=== PATIENT | female | born 1960 | race Hispanic/Latino ===

== ENCOUNTER 2017-08-07 08:48 | Outpatient (CLI) | payer MEDICARE, MEDICAID ==
--- NOTE | 2017-08-07 11:28 | MRI ---
CERVICAL SPINE MRI WITHOUT CONTRAST: DATE: 08/07/17. COMPARISON: None. HISTORY: Right 3rd and 4th digit numbness on right hand for 2 weeks, history of several falls. TECHNIQUE: Multiplanar, multisequence MR imaging of the cervical spine is obtained without contrast. FINDINGS: Straightening of the normal cervical lordosis noted. No prevertebral soft tissue swelling is seen. Mild degenerative change noted at the atlantoaxial interspace. The craniocervical junction and cer vicothoracic junction appear intact. C2-3: Facet and uncovertebral osteophyte formation noted on the right with mild to moderate associa sohan right neural foraminal stenosis. No central canal or left neural foraminal stenosis. C3-4: Minimal disk bulge with no central canal stenosis or neural foraminal stenosis. C4-5: Minimal disk bulge with no central canal stenosis. No significant neural foraminal stenosis on either side. C5-6: There is mild disk bulge with mild effacement of the ventral thecal sac and minimal central c anal stenosis. There is mild bilateral neural foraminal stenosis on the basis of uncovertebral oste ophyte formation. C6-7: No significant central canal or neural foraminal stenosis. C7-T1: Small central disk protrusion with no significant central canal or neural foraminal stenosis . The cervical cord demonstrates normal signal intensity. No focal area of osseous marrow signal abno rmality. IMPRESSION: Mild degenerative changes. There is neural foraminal stenosis on the right at C2-3 and bilaterally at C5-6. POS: [facility]
== END 2017-08-07 08:49 | disposition home or self-care (01) ==
LOC: MRI 08:48
PROVIDERS: ATTEND Psychiatry & Neurology Neurology
DX: G40.209 Localization-related (focal) (partial) symptomatic epilepsy and epileptic syndromes with complex partial seizures, not intractable, without status epilepticus (principal); M47.892 Other spondylosis, cervical region; M48.02 Spinal stenosis, cervical region
CPT/HCPCS: 72141

== ENCOUNTER 2017-08-14 13:01 | Emergency (ER) | payer MEDICARE, MEDICAID ==
[2017-08-14 13:52] LABS: #Lymphocytes 2.4 thou/uL (1.20-3.40); #Monocytes 0.3 thou/uL (0.11-0.59); #Neutrophils 3.9 thou/uL (1.40-6.50); %Basophils 0.5 % (0.0-1.0); %Eosinophils 0.6 % (0.0-10.0); %Lymphocytes 35.4 % (21.0-51.0); %Monocytes 5.2 % (0.0-10.0); Hematocrit 44.6 % (36.0-47.0); Mean Platelet Volume 7.4 fL (7.4-10.4); Red Blood Cell (RBC) Count 4.87 mill/uL (4.20-5.40); White Blood Cell (WBC) Count 6.6 thou/uL (4.8-10.8)
[2017-08-14 14:40] LABS: Chloride 102 mmol/L (98-107)
[2017-08-14 14:41] LABS: Calcium 10.1 mg/dL (7.8-10.44)
[2017-08-14 14:43] LABS: Anion Gap 16 mmol/L (10-20); Carbon Dioxide 24 mmol/L (22-29)
[2017-08-14 14:45] LABS: BUN (Urea Nitrogen) 8 mg/dL (9.8-20.1); Calc. Creatinine Clearance 0 mL/min (70-130); Estimated GFR-MDRD Greater than 90
== END 2017-08-14 15:10 | disposition home or self-care (01) ==
LOC: EEVIPCON 13:01 → ERS 13:01
DX: G40.909 Epilepsy, unspecified, not intractable, without status epilepticus (principal); E78.5 Hyperlipidemia, unspecified; I10 Essential (primary) hypertension; E66.9 Obesity, unspecified; E11.9 Type 2 diabetes mellitus without complications; E03.9 Hypothyroidism, unspecified; J45.909 Unspecified asthma, uncomplicated; F31.9 Bipolar disorder, unspecified; F25.9 Schizoaffective disorder, unspecified; Z79.82 Long term (current) use of aspirin; Z79.899 Other long term (current) drug therapy
CPT/HCPCS: 36415; 80048; 84146; 85025; 99284

== ENCOUNTER 2017-08-15 13:45 | Emergency (ER) | payer MEDICARE, MEDICAID | END 2017-08-15 15:48 | disposition home or self-care (01) | LOC: ERS 13:45 | DX: G47.00 Insomnia, unspecified (principal); E78.5 Hyperlipidemia, unspecified; I10 Essential (primary) hypertension; E11.9 Type 2 diabetes mellitus without complications; E03.9 Hypothyroidism, unspecified; J45.909 Unspecified asthma, uncomplicated; F31.9 Bipolar disorder, unspecified; F25.9 Schizoaffective disorder, unspecified; Z79.84 Long term (current) use of oral hypoglycemic drugs; Z79.899 Other long term (current) drug therapy | CPT/HCPCS: 36416; 99285 ==

== ENCOUNTER 2017-11-20 16:49 | Emergency (ER) | payer MEDICARE, MEDICAID ==
[2017-11-20] MEDS ORDERED: Lorazepam 2 MG/ML VIAL ONE (17:45)
[2017-11-20 17:47] LABS: #Eosinphils 0.1 thou/uL (0.0-0.7); #Lymphocytes 2.9 thou/uL (1.20-3.40); #Monocytes 0.4 thou/uL (0.11-0.59); #Neutrophils 5.7 thou/uL (1.40-6.50); %Basophils 0.5 % (0.0-1.0); %Eosinophils 0.7 % (0.0-10.0); %Lymphocytes 31.8 % (21.0-51.0); %Monocytes 4.7 % (0.0-10.0); %Neutrophils 62.4 % (42.0-75.0); Hemoglobin 13.1 g/dL (12.0-16.0); Mean Corpuscular HGB CONC 33.6 g/dL (32.0-36.0); Mean Corpuscular Hemoglobin 30.9 pg (27.0-31.0); Mean Platelet Volume 6.9 fL (7.4-10.4); Platelet Count 245 thou/uL (130-400); RBC Distribution Width 13.4 % (11.5-14.5); Red Blood Cell (RBC) Count 4.23 mill/uL (4.20-5.40); White Blood Cell (WBC) Count 9.2 thou/uL (4.8-10.8)
[2017-11-20 18:08] LABS: ALT (SGPT) 32 U/L (8-55); AST (SGOT) 27 U/L (5-34); Alkaline Phosphatase 82 U/L (40-150); Anion Gap 14 mmol/L (10-20); BUN (Urea Nitrogen) 14 mg/dL (9.8-20.1); Bilirubin, Total 0.2 mg/dL (0.2-1.2); Calc. Creatinine Clearance 0 mL/min (70-130); Calcium 9.7 mg/dL (7.8-10.44); Carbon Dioxide 24 mmol/L (22-29); Chloride 104 mmol/L (98-107); Estimated GFR-MDRD Greater than 90; Globulin 3.5 g/dL (2.4-3.5); Glucose 104 mg/dL (70-105); Potassium 3.9 mmol/L (3.5-5.1); Protein, Total 7.5 g/dL (6.0-8.3); Sodium 138 mmol/L (136-145)
--- NOTE | 2017-11-22 15:15 | EKG ---
Test Reason : Blood Pressure : / mmHG Vent. Rate : 067 BPM Atrial Rate : 067 BPM P-R Int : 140 ms QRS Dur : 080 ms QT Int : 390 ms P-R-T Axes : 024 030 -03 degrees QTc Int : 412 ms Normal sinus rhythm Nonspecific T wave abnormality Abnormal ECG Confirmed by NGOC MCCABE, VIDA ([id number]), publication editor REA GEE ([id number]) on 11/22/2017 3:14:46 PM Referred By: Confirmed By:VIDA GROSSMAN MD
== END 2017-11-20 18:15 | disposition home or self-care (01) ==
LOC: ERS 16:49
DX: G40.909 Epilepsy, unspecified, not intractable, without status epilepticus (principal); F41.9 Anxiety disorder, unspecified; E78.5 Hyperlipidemia, unspecified; I10 Essential (primary) hypertension; E66.9 Obesity, unspecified; E03.9 Hypothyroidism, unspecified; J45.909 Unspecified asthma, uncomplicated; Z79.899 Other long term (current) drug therapy; Z79.84 Long term (current) use of oral hypoglycemic drugs
CPT/HCPCS: 36415; 80053; 85025; 93005; 96374; J2060

== ENCOUNTER 2017-11-21 11:26 | Emergency (ER) | payer MEDICARE, MEDICAID ==
--- NOTE | 2017-11-21 12:52 | CT ---
CT BRAIN: 11/21/2017 PROVIDED CLINICAL HISTORY: Seizure. COMPARISON: 03/04/2016 FINDINGS: The ventricular system appears normal in size and morphology. There is no evidence for intracranial hemorrhage or mass effect. The extracranial soft tissues and osseous structures demonstrate an unrem arkable CT appearance. IMPRESSION: No evidence for intracranial hemorrhage or mass effect. POS: [facility]
[2017-11-21 12:57] LABS: #Basophils 0.1 thou/uL (0.0-0.2); #Eosinphils 0.1 thou/uL (0.0-0.7); #Lymphocytes 2.7 thou/uL (1.20-3.40); #Monocytes 0.4 thou/uL (0.11-0.59); #Neutrophils 6.4 thou/uL (1.40-6.50); %Basophils 0.5 % (0.0-1.0); %Eosinophils 0.7 % (0.0-10.0); %Monocytes 4.3 % (0.0-10.0); %Neutrophils 66.5 % (42.0-75.0); Mean Corpuscular Hemoglobin 30.6 pg (27.0-31.0); Mean Corpuscular Volume 92.5 fl (81.0-99.0); Mean Platelet Volume 6.9 fL (7.4-10.4); Platelet Count 244 thou/uL (130-400); RBC Distribution Width 13.3 % (11.5-14.5); Red Blood Cell (RBC) Count 4.25 mill/uL (4.20-5.40); White Blood Cell (WBC) Count 9.6 thou/uL (4.8-10.8)
[2017-11-21 13:16] LABS: ALT (SGPT) 33 U/L (8-55); AST (SGOT) 30 U/L (5-34); Alkaline Phosphatase 75 U/L (40-150); Anion Gap 15 mmol/L (10-20); BUN (Urea Nitrogen) 14 mg/dL (9.8-20.1); Bilirubin, Total 0.2 mg/dL (0.2-1.2); Calc. Creatinine Clearance 0 mL/min (70-130); Calcium 9.9 mg/dL (7.8-10.44); Carbon Dioxide 25 mmol/L (22-29); Chloride 103 mmol/L (98-107); Estimated GFR-MDRD Greater than 90; Globulin 3.6 g/dL (2.4-3.5); Glucose 93 mg/dL (70-105); Protein, Total 7.6 g/dL (6.0-8.3); Sodium 139 mmol/L (136-145)
[2017-11-21] MEDS ORDERED: levETIRAcetam 500 MG TAB PO ONE (14:30)
== END 2017-11-21 15:08 | disposition home or self-care (01) ==
LOC: ERS 11:26
DX: G40.909 Epilepsy, unspecified, not intractable, without status epilepticus (principal); E78.5 Hyperlipidemia, unspecified; I10 Essential (primary) hypertension; E66.9 Obesity, unspecified; E11.9 Type 2 diabetes mellitus without complications; E03.9 Hypothyroidism, unspecified; J45.909 Unspecified asthma, uncomplicated
CPT/HCPCS: 36415; 70450; 80053; 80177; 85025; 93005

== ENCOUNTER 2017-12-29 16:08 | Emergency (ER) | payer MEDICARE, MEDICAID ==
[2017-12-29 17:42] LABS: Bilirubin Negative (Negative); Blood, Urine Negative (Negative); Clarity CLEAR (Clear); Glucose, Urine (Dipstick) Negative (Negative); Leukocyte Negative (Negative); Nitrite Negative (Negative); Protein, Urine (Dipstick) Negative (Neg-Trace); Specific Gravity, Urine 1.005 (1.002-1.036); Urobilinogen 0.2 mg/dL (0.2-1.0); pH, Urine 6.5 (5.0-9.0)
[2017-12-29 17:50] LABS: Amphetamine Not Detected (NotDetected); Barbiturates Screen Not Detected (NotDetected); Benzodiazepine Screen Not Detected (NotDetected); Cocaine Metabolite Screen Not Detected (NotDetected); Medtox Control Line Valid? VALID (VALID); Medtox Reader # READER 1; Methadone Not Detected (NotDetected); Methamphetamine Not Detected (NotDetected); Opiate Screen Not Detected (NotDetected); Oxycodone Screen Not Detected (NotDetected); Phencyclidine (PCP) Not Detected (NotDetected); THC/Cannabinoid Screen Not Detected (NotDetected); Tricyclic Screen Not Detected (NotDetected)
[2017-12-29 19:13] LABS: #Eosinphils 0.1 thou/uL (0.0-0.7); #Lymphocytes 3.1 thou/uL (1.20-3.40); #Monocytes 0.6 thou/uL (0.11-0.59); #Neutrophils 5.8 thou/uL (1.40-6.50); %Basophils 0.1 % (0.0-1.0); %Eosinophils 0.9 % (0.0-10.0); %Lymphocytes 32.5 % (21.0-51.0); %Monocytes 6.3 % (0.0-10.0); %Neutrophils 60.2 % (42.0-75.0); Band 1 % (5-11); Hemoglobin 13.6 g/dL (12.0-16.0); Lymphocytes 28 % (21-51); MDiff Complete? YES; Mean Corpuscular HGB CONC 33.1 g/dL (32.0-36.0); Mean Corpuscular Hemoglobin 29.5 pg (27.0-31.0); Mean Corpuscular Volume 89.1 fl (81.0-99.0); Mean Platelet Volume 6.4 fL (7.4-10.4); Metamyelocyte 1 % (0-0); Monocytes 5 % (0-10); Neutrophil 65 % (42-75); Platelet Count 213 thou/uL (130-400); RBC Distribution Width 12.7 % (11.5-14.5); Red Blood Cell (RBC) Count 4.62 mill/uL (4.20-5.40); White Blood Cell (WBC) Count 9.6 thou/uL (4.8-10.8)
[2017-12-29 19:17] LABS: ALT (SGPT) 32 U/L (8-55); AST (SGOT) 24 U/L (5-34); Albumin 4.2 g/dL (3.5-5.0); Alkaline Phosphatase 104 U/L (40-150); Anion Gap 15 mmol/L (10-20); BUN (Urea Nitrogen) 8 mg/dL (9.8-20.1); Bilirubin, Total 0.4 mg/dL (0.2-1.2); Calc. Creatinine Clearance 0 mL/min (70-130); Calcium 10.4 mg/dL (7.8-10.44); Carbon Dioxide 26 mmol/L (22-29); Chloride 97 mmol/L (98-107); Estimated GFR-MDRD Greater than 90; Globulin 3.5 g/dL (2.4-3.5); Glucose 94 mg/dL (70-105); Protein, Total 7.7 g/dL (6.0-8.3); Sodium 134 mmol/L (136-145)
[2017-12-29] MEDS ORDERED: Divalproex Sodium DR 500 MG TAB PO SCH (20:15)
== END 2017-12-29 20:48 | disposition home or self-care (01) ==
LOC: ERS 16:08
DX: Z03.89 Encounter for observation for other suspected diseases and conditions ruled out (principal); E03.9 Hypothyroidism, unspecified; I10 Essential (primary) hypertension; E11.9 Type 2 diabetes mellitus without complications; F31.9 Bipolar disorder, unspecified; F20.9 Schizophrenia, unspecified; G40.909 Epilepsy, unspecified, not intractable, without status epilepticus; E78.00 Pure hypercholesterolemia, unspecified; Z79.84 Long term (current) use of oral hypoglycemic drugs; Z79.899 Other long term (current) drug therapy
CPT/HCPCS: 36415; 80053; 80164; 80177; 80306; 81003; 85025; 99284

== ENCOUNTER 2018-01-11 09:14 | Emergency (ER) | payer MEDICARE, MEDICAID | END 2018-01-11 16:48 | disposition left against medical advice (07) | LOC: ERS 09:14 | DX: Z53.21 Procedure and treatment not carried out due to patient leaving prior to being seen by health care provider (principal) | CPT/HCPCS: 36416 ==

== ENCOUNTER 2018-01-12 11:56 | Emergency (ER) | payer MEDICARE, MEDICAID ==
[2018-01-12] MEDS ORDERED: Ibuprofen 200 MG TAB ONE (12:35)
== END 2018-01-12 12:55 | disposition home or self-care (01) ==
LOC: ERS 11:56
DX: S80.01XA Contusion of right knee, initial encounter (principal); E78.5 Hyperlipidemia, unspecified; I10 Essential (primary) hypertension; E66.9 Obesity, unspecified; E11.9 Type 2 diabetes mellitus without complications; E03.9 Hypothyroidism, unspecified; G40.909 Epilepsy, unspecified, not intractable, without status epilepticus; J45.909 Unspecified asthma, uncomplicated; F25.9 Schizoaffective disorder, unspecified; F31.9 Bipolar disorder, unspecified; Z79.84 Long term (current) use of oral hypoglycemic drugs; Z79.899 Other long term (current) drug therapy; W01.0XXA Fall on same level from slipping, tripping and stumbling without subsequent striking against object, initial encounter; Y92.481 Parking lot as the place of occurrence of the external cause
CPT/HCPCS: 99284

== ENCOUNTER 2018-01-17 06:53 | Emergency (ER) | payer MEDICARE, MEDICAID | END 2018-01-17 08:50 | disposition home or self-care (01) | LOC: ERS 06:53 | DX: E11.65 Type 2 diabetes mellitus with hyperglycemia (principal); R26.2 Difficulty in walking, not elsewhere classified; E78.5 Hyperlipidemia, unspecified; I10 Essential (primary) hypertension; E66.9 Obesity, unspecified; E03.9 Hypothyroidism, unspecified; G40.909 Epilepsy, unspecified, not intractable, without status epilepticus; J45.909 Unspecified asthma, uncomplicated; F31.9 Bipolar disorder, unspecified; F20.9 Schizophrenia, unspecified; Z79.899 Other long term (current) drug therapy; Z79.84 Long term (current) use of oral hypoglycemic drugs | CPT/HCPCS: 36416; 99284 ==

== ENCOUNTER 2018-01-29 19:42 | Emergency (ER) | payer MEDICARE, MEDICAID ==
[2018-01-29 20:04] LABS: #Basophils 0.1 thou/uL (0.0-0.2); #Eosinphils 0.1 thou/uL (0.0-0.7); #Lymphocytes 3.5 thou/uL (1.20-3.40); #Monocytes 0.5 thou/uL (0.11-0.59); %Basophils 1.1 % (0.0-1.0); %Eosinophils 0.7 % (0.0-10.0); %Lymphocytes 30.8 % (21.0-51.0); %Monocytes 4.8 % (0.0-10.0); %Neutrophils 62.5 % (42.0-75.0); Hemoglobin 14.2 g/dL (12.0-16.0); Mean Corpuscular HGB CONC 33.6 g/dL (32.0-36.0); Mean Corpuscular Hemoglobin 29.6 pg (27.0-31.0); Mean Platelet Volume 6.2 fL (7.4-10.4); Platelet Count 242 thou/uL (130-400); RBC Distribution Width 12.5 % (11.5-14.5); Red Blood Cell (RBC) Count 4.78 mill/uL (4.20-5.40); White Blood Cell (WBC) Count 11.2 thou/uL (4.8-10.8)
[2018-01-29 20:27] LABS: Bilirubin Negative (Negative); Blood, Urine Negative (Negative); Clarity CLEAR (Clear); Glucose, Urine (Dipstick) Negative (Negative); Leukocyte Large (Negative); Nitrite Negative (Negative); Protein, Urine (Dipstick) Negative (Neg-Trace); Specific Gravity, Urine 1.003 (1.002-1.036); Urobilinogen 0.2 mg/dL (0.2-1.0)
[2018-01-29 20:28] LABS: Pregnancy Test - Urine (BHCG) Negative (Negative); Pregu Control Background? CLEAR/WHITE (CLR/WHITE); Pregu Control Bar Appear? YES (CONTROL BAR); Specific Gravity 1.003 (1.002-1.036)
[2018-01-29 20:29] LABS: Bacteria/HPF None Seen HPF (None Seen); Hyaline Casts/LPF 0-3 HYALINE CAST LPF (0-3 Hyaline); Pathc Cast-AUWi Flag 0.29 (0-2.49); Squamous Epithelial 0-3 HPF (0-3)
[2018-01-29 20:30] LABS: ALT (SGPT) 18 U/L (8-55); AST (SGOT) 18 U/L (5-34); Albumin 4.3 g/dL (3.5-5.0); Alkaline Phosphatase 97 U/L (40-150); Anion Gap 15 mmol/L (10-20); BUN (Urea Nitrogen) 11 mg/dL (9.8-20.1); Bilirubin, Total 0.3 mg/dL (0.2-1.2); CK (CPK) 34 U/L (29-168); Calc. Creatinine Clearance 0 mL/min (70-130); Calcium 10.3 mg/dL (7.8-10.44); Carbon Dioxide 25 mmol/L (22-29); Chloride 95 mmol/L (98-107); Estimated GFR-MDRD 83; Globulin 3.8 g/dL (2.4-3.5); Glucose 109 mg/dL (70-105); Potassium 4.4 mmol/L (3.5-5.1); Protein, Total 8.1 g/dL (6.0-8.3); Sodium 131 mmol/L (136-145)
[2018-01-29 20:32] LABS: Acetaminophen Less than 6.0 mcg/mL (10.0-30.0); Alcohol Less than 10 mg/dL (Less than 10); Salicylate Less than 8.0 mg/dL (15.0-30.0)
[2018-01-29 20:38] LABS: Amphetamine Not Detected (NotDetected); Barbiturates Screen Not Detected (NotDetected); Benzodiazepine Screen Detected (NotDetected); Cocaine Metabolite Screen Not Detected (NotDetected); Medtox Control Line Valid? VALID (VALID); Medtox Reader # READER 4; Methadone Not Detected (NotDetected); Methamphetamine Not Detected (NotDetected); Opiate Screen Not Detected (NotDetected); Oxycodone Screen Not Detected (NotDetected); Phencyclidine (PCP) Not Detected (NotDetected); THC/Cannabinoid Screen Not Detected (NotDetected); Tricyclic Screen Not Detected (NotDetected)
[2018-01-29 20:40] LABS: RBC/HPF 0-3 HPF (0-3)
[2018-01-30] MEDS ORDERED: Levothyroxine Sodium 125 MCG TAB PO SCH (06:00)
[2018-01-30] MEDS ORDERED: metFORMIN 500 MG TAB PO SCH ×2 (08:00→22:45)
[2018-01-30] MEDS ORDERED: Lisinopril 10 MG TAB PO SCH (09:00)
[2018-01-30] MEDS ORDERED: levETIRAcetam 500 mg/5 ml Oral Solution PO SCH ×2 (09:00→22:45)
[2018-01-30] MEDS ORDERED: OLANZapine 5 MG TAB PO SCH (09:00)
[2018-01-30] MEDS ORDERED: Lorazepam 1 MG TAB ONE (23:02)
[2018-01-30] MEDS ORDERED: clonazePAM 1 MG TAB ONE (23:02)
[2018-01-30] MEDS ORDERED: Pravastatin Sodium 40 MG TAB PO SCH (23:15)
[2018-01-31] MEDS ORDERED: Nitrofurantoin Monohyd/M-Cryst 100 MG CAP PO SCH (09:00)
[2018-01-31] MEDS ORDERED: traZODone HCl 50 MG TAB PO SCH (22:45)
[2018-02-01] MEDS ORDERED: Levothyroxine Sodium 100 MCG TAB PO SCH (06:00)
== END 2018-02-01 14:49 ==
LOC: ERS 19:42
DX: F32.9 Major depressive disorder, single episode, unspecified (principal); N39.0 Urinary tract infection, site not specified; E78.5 Hyperlipidemia, unspecified; I10 Essential (primary) hypertension; E66.9 Obesity, unspecified; E11.9 Type 2 diabetes mellitus without complications; E03.9 Hypothyroidism, unspecified; G40.909 Epilepsy, unspecified, not intractable, without status epilepticus; J45.909 Unspecified asthma, uncomplicated; F29 Unspecified psychosis not due to a substance or known physiological condition; Z79.84 Long term (current) use of oral hypoglycemic drugs; Z79.899 Other long term (current) drug therapy
CPT/HCPCS: 36415; 36416; 80053; 80306; 80307; 81003; 81015; 81025; 82550; 84443; 85025; 87086; 99285

== ENCOUNTER 2018-02-16 15:12 | Emergency (ER) | payer MEDICARE, MEDICAID ==
[2018-02-16 15:52] LABS: #Eosinphils 0.1 thou/uL (0.0-0.7); #Lymphocytes 2.7 thou/uL (1.20-3.40); #Monocytes 0.6 thou/uL (0.11-0.59); %Basophils 0.1 % (0.0-1.0); %Eosinophils 0.9 % (0.0-10.0); %Lymphocytes 28.7 % (21.0-51.0); %Neutrophils 64.3 % (42.0-75.0); Hemoglobin 13.9 g/dL (12.0-16.0); Mean Corpuscular HGB CONC 33.4 g/dL (32.0-36.0); Mean Corpuscular Hemoglobin 29.9 pg (27.0-31.0); Mean Corpuscular Volume 89.6 fl (81.0-99.0); Mean Platelet Volume 6.2 fL (7.4-10.4); Platelet Count 218 thou/uL (130-400); RBC Distribution Width 12.5 % (11.5-14.5); Red Blood Cell (RBC) Count 4.66 mill/uL (4.20-5.40); White Blood Cell (WBC) Count 9.3 thou/uL (4.8-10.8)
[2018-02-16 16:11] LABS: ALT (SGPT) 16 U/L (8-55); AST (SGOT) 17 U/L (5-34); Albumin 4.5 g/dL (3.5-5.0); Alkaline Phosphatase 96 U/L (40-150); Anion Gap 14 mmol/L (10-20); BUN (Urea Nitrogen) 10 mg/dL (9.8-20.1); Bilirubin, Total 0.3 mg/dL (0.2-1.2); Calc. Creatinine Clearance 0 mL/min (70-130); Calcium 10.2 mg/dL (7.8-10.44); Carbon Dioxide 27 mmol/L (22-29); Chloride 98 mmol/L (98-107); Estimated GFR-MDRD Greater than 90; Globulin 3.7 g/dL (2.4-3.5); Glucose 95 mg/dL (70-105); Potassium 4.3 mmol/L (3.5-5.1); Protein, Total 8.2 g/dL (6.0-8.3); Sodium 135 mmol/L (136-145)
== END 2018-02-16 17:48 | disposition home or self-care (01) ==
LOC: ERS 15:12
DX: G40.909 Epilepsy, unspecified, not intractable, without status epilepticus (principal); E78.5 Hyperlipidemia, unspecified; I10 Essential (primary) hypertension; E66.9 Obesity, unspecified; E11.9 Type 2 diabetes mellitus without complications; E03.9 Hypothyroidism, unspecified; J45.909 Unspecified asthma, uncomplicated; F31.9 Bipolar disorder, unspecified; F25.9 Schizoaffective disorder, unspecified; Z79.84 Long term (current) use of oral hypoglycemic drugs; Z79.899 Other long term (current) drug therapy
CPT/HCPCS: 36415; 80053; 84146; 85025; 99284

== ENCOUNTER 2018-02-20 16:59 | Emergency (ER) | payer MEDICARE, MEDICAID ==
[2018-02-20 17:34] LABS: Bilirubin Negative (Negative); Blood, Urine Negative (Negative); Clarity CLEAR (Clear); Glucose, Urine (Dipstick) Negative (Negative); Leukocyte Negative (Negative); Nitrite Negative (Negative); Protein, Urine (Dipstick) Negative (Neg-Trace); Specific Gravity, Urine 1.007 (1.002-1.036); Urobilinogen 0.2 mg/dL (0.2-1.0)
[2018-02-20 17:36] LABS: Pregnancy Test - Urine (BHCG) Negative (Negative); Pregu Control Background? CLEAR/WHITE (CLR/WHITE); Pregu Control Bar Appear? YES (CONTROL BAR); Specific Gravity 1.007 (1.002-1.036)
[2018-02-20 17:43] LABS: Amphetamine Not Detected (NotDetected); Barbiturates Screen Not Detected (NotDetected); Benzodiazepine Screen Not Detected (NotDetected); Cocaine Metabolite Screen Not Detected (NotDetected); Medtox Control Line Valid? VALID (VALID); Medtox Reader # READER 4; Methadone Not Detected (NotDetected); Methamphetamine Not Detected (NotDetected); Opiate Screen Not Detected (NotDetected); Oxycodone Screen Not Detected (NotDetected); Phencyclidine (PCP) Not Detected (NotDetected); THC/Cannabinoid Screen Not Detected (NotDetected); Tricyclic Screen Not Detected (NotDetected)
[2018-02-20 17:49] LABS: #Basophils 0.1 thou/uL (0.0-0.2); #Eosinphils 0.1 thou/uL (0.0-0.7); #Lymphocytes 2.8 thou/uL (1.20-3.40); #Monocytes 0.5 thou/uL (0.11-0.59); #Neutrophils 6.8 thou/uL (1.40-6.50); %Basophils 0.6 % (0.0-1.0); %Lymphocytes 27.4 % (21.0-51.0); %Monocytes 4.6 % (0.0-10.0); %Neutrophils 66.4 % (42.0-75.0); Hemoglobin 13.2 g/dL (12.0-16.0); Mean Corpuscular HGB CONC 33.3 g/dL (32.0-36.0); Mean Corpuscular Hemoglobin 30.3 pg (27.0-31.0); Mean Corpuscular Volume 90.9 fl (81.0-99.0); Mean Platelet Volume 6.5 fL (7.4-10.4); Platelet Count 235 thou/uL (130-400); RBC Distribution Width 12.6 % (11.5-14.5); Red Blood Cell (RBC) Count 4.35 mill/uL (4.20-5.40); White Blood Cell (WBC) Count 10.2 thou/uL (4.8-10.8)
[2018-02-20 18:08] LABS: Acetaminophen Less than 6.0 mcg/mL (10.0-30.0); Alcohol Less than 10 mg/dL (Less than 10); Salicylate Less than 8.0 mg/dL (15.0-30.0)
[2018-02-20 18:09] LABS: ALT (SGPT) 16 U/L (8-55); AST (SGOT) 18 U/L (5-34); Albumin 4.2 g/dL (3.5-5.0); Alkaline Phosphatase 90 U/L (40-150); Anion Gap 16 mmol/L (10-20); BUN (Urea Nitrogen) 7 mg/dL (9.8-20.1); Bilirubin, Total 0.4 mg/dL (0.2-1.2); CK (CPK) 30 U/L (29-168); Calc. Creatinine Clearance 0 mL/min (70-130); Calcium 10.1 mg/dL (7.8-10.44); Carbon Dioxide 25 mmol/L (22-29); Chloride 97 mmol/L (98-107); Estimated GFR-MDRD Greater than 90; Globulin 3.4 g/dL (2.4-3.5); Glucose 138 mg/dL (70-105); Potassium 3.9 mmol/L (3.5-5.1); Protein, Total 7.6 g/dL (6.0-8.3); Sodium 134 mmol/L (136-145)
[2018-02-21] MEDS ORDERED: Levothyroxine Sodium 125 MCG TAB PO SCH (06:00)
[2018-02-21] MEDS ORDERED: Lorazepam 1 MG TAB ONE (07:49)
[2018-02-21] MEDS ORDERED: metFORMIN 500 MG TAB PO SCH (08:00)
[2018-02-21] MEDS ORDERED: OLANZapine 5 MG TAB PO SCH (09:00)
[2018-02-21] MEDS ORDERED: levETIRAcetam 500 MG TAB PO SCH (09:00)
[2018-02-21] MEDS ORDERED: Lisinopril 10 MG TAB PO SCH (09:00)
[2018-02-21] MEDS ORDERED: Lorazepam 0.5 MG TAB PO SCH (09:00)
[2018-02-21] MEDS ORDERED: Atorvastatin Calcium 10 MG TAB PO SCH (21:00)
[2018-02-21] MEDS ORDERED: Divalproex Sodium DR 500 MG TAB PO SCH (21:00)
[2018-02-23] MEDS ORDERED: Lorazepam 1 MG TAB PO SCH (21:00)
== END 2018-02-25 12:26 | disposition home or self-care (01) ==
LOC: ERS 16:59
DX: R45.851 Suicidal ideations (principal); F32.9 Major depressive disorder, single episode, unspecified; E03.9 Hypothyroidism, unspecified; E11.9 Type 2 diabetes mellitus without complications; E66.9 Obesity, unspecified; E78.5 Hyperlipidemia, unspecified; F25.9 Schizoaffective disorder, unspecified; F41.9 Anxiety disorder, unspecified; I10 Essential (primary) hypertension; J45.909 Unspecified asthma, uncomplicated; G40.909 Epilepsy, unspecified, not intractable, without status epilepticus; Z79.84 Long term (current) use of oral hypoglycemic drugs; Z79.899 Other long term (current) drug therapy
CPT/HCPCS: 36415; 36416; 80053; 80306; 80307; 81003; 81025; 82550; 84443; 85025; 99284

== ENCOUNTER 2018-05-27 13:37 | Inpatient (IN) | payer MEDICARE, MEDICAID ==
[2018-05-27 14:15] LABS: #Lymphocytes 1.4 thou/uL (1.20-3.40); #Monocytes 0.2 thou/uL (0.11-0.59); #Neutrophils 4.9 thou/uL (1.40-6.50); %Basophils 0.4 % (0.0-1.0); %Eosinophils 0.7 % (0.0-10.0); %Lymphocytes 21.6 % (21.0-51.0); %Monocytes 3.3 % (0.0-10.0); Hemoglobin 13.8 g/dL (12.0-16.0); Mean Corpuscular HGB CONC 33.4 g/dL (32.0-36.0); Mean Corpuscular Hemoglobin 29.2 pg (27.0-31.0); Mean Corpuscular Volume 87.4 fL (78.0-98.0); Mean Platelet Volume 6.6 fL (7.4-10.4); Platelet Count 251 thou/uL (130-400); RBC Distribution Width 12.2 % (11.5-14.5); Red Blood Cell (RBC) Count 4.74 mill/uL (4.20-5.40); White Blood Cell (WBC) Count 6.6 thou/uL (4.8-10.8)
[2018-05-27 14:35] LABS: ALT (SGPT) 35 U/L (8-55); AST (SGOT) 34 U/L (5-34); Albumin 4.2 g/dL (3.5-5.0); Alkaline Phosphatase 110 U/L (40-150); Anion Gap 23 mmol/L (10-20); BUN (Urea Nitrogen) 13 mg/dL (9.8-20.1); Bilirubin, Total 0.5 mg/dL (0.2-1.2); Calc. Creatinine Clearance 0 mL/min (70-130); Calcium 10.3 mg/dL (7.8-10.44); Carbon Dioxide 17 mmol/L (22-29); Chloride 100 mmol/L (98-107); Estimated GFR-MDRD 53; Globulin 3.4 g/dL (2.4-3.5); Glucose 254 mg/dL (70-105); Potassium 4.3 mmol/L (3.5-5.1); Protein, Total 7.6 g/dL (6.0-8.3); Sodium 136 mmol/L (136-145)
[2018-05-27 18:36] LABS: Bilirubin Negative (Negative); Blood, Urine Negative (Negative); Clarity CLOUDY (Clear); Glucose, Urine (Dipstick) Negative (Negative); Leukocyte Small (Negative); Nitrite Negative (Negative); Protein, Urine (Dipstick) Negative (Neg-Trace); Specific Gravity, Urine 1.013 (1.002-1.036); Urobilinogen 0.2 mg/dL (0.2-1.0); pH, Urine 5.5 (5.0-9.0)
[2018-05-27 18:45] LABS: Bacteria/HPF None Seen HPF (None Seen); Hyaline Casts/LPF 7-10 HYALINE CAST LPF (0-3 Hyaline); Pathc Cast-AUWi Flag 1.01 (0-2.49)
[2018-05-27 18:49] LABS: Base Excess-Venous -0.3 mmol/L (0 (+/- 2.5)); Bicarbonate (HCO3v) 27.2 mmol/L (1.0-85.0); CO2 Tension (PvCO2) 55.6 mmHg (41.0-51.0); Calcium, Ionized 1.04 mmol/L (1.12-1.32); Hemoglobin - Calc 13.3 g/dL (12.0-18.0); T. Carbon Dioxide 28.9 mmol/L (1.0-85.0); pH (Venous) 7.297 (7.35-7.45); vO2 Saturation-calc 83.4 % (94-98)
[2018-05-27 19:53] LABS: Anion Gap 14 mmol/L (10-20); BUN (Urea Nitrogen) 14 mg/dL (9.8-20.1); Calc. Creatinine Clearance 0 mL/min (70-130); Calcium 9.2 mg/dL (7.8-10.44); Carbon Dioxide 26 mmol/L (22-29); Chloride 104 mmol/L (98-107); Estimated GFR-MDRD 72; Glucose 94 mg/dL (70-105); Potassium 4.8 mmol/L (3.5-5.1); Sodium 139 mmol/L (136-145)
[2018-05-27] MEDS ORDERED: Ondansetron HCl/PF 4 MG/2 ML Vial IVP PRN (21:03)
[2018-05-27] MEDS ORDERED: Ondansetron ODT 4 MG TAB SL PRN (21:03)
[2018-05-27] MEDS ORDERED: Acetaminophen 325 MG TAB PO PRN (21:03)
[2018-05-27 21:46] VITALS: BMI 33.3
[2018-05-27] MEDS: Sodium Chloride 0.9% 1,000 ML IV SCH (22:07)
[2018-05-27] MEDS ORDERED: Dextrose 50% Abboject 50 ML SYRINGE SLOW IVP PRN (23:59)
[2018-05-27] MEDS ORDERED: HumaLOG 300 UNITS/3 ML VIAL SC PRN (23:59)
[2018-05-27] MEDS ORDERED: Dextrose 5% in Water 1,000 ML IV PRN (23:59)
--- NOTE | 2018-05-28 00:10 | PDOC.FPRHP ---
- History of Present Illness Chief Complaint: weakness History of Present Illness: 57 F with PMH of DM, hypothyroidism, HTN, CAD, schizoaffective disorder, bipolar , and multiple personality disorder who presents for weakness and nausea. Pt states she was waiting for the bus today and began to feel weak and nauseated, felt dehydrated. She continued to the store and was feeling tired, SOB, and had a near-syncopal episode so she decided to come to the ED. In the ED, she had an anion gap of 23, glucose of 254, normal betahydroxybutyrate, and ketones in urine. Systolic BP was in the 90s. Was given NS 1500 ml, and BP improved to 122/72. - Allergies/Adverse Reactions Allergies Allergy/AdvReac Type Severity Reaction Status Date / Time alprazolam [From Xanax] Allergy Unknown Verified 05/27/18 21:47 fluoxetine HCl [From Prozac] Allergy Unknown Verified 05/27/18 21:47 haloperidol [From Haldol] Allergy Unknown Verified 05/27/18 21:47 haloperidol lactate Allergy Unknown Verified 05/27/18 21:47 [From Haldol] aripiprazole [From Abilify] Allergy Verified 05/27/18 21:47 fluoxetine [From Prozac] Allergy Verified 05/27/18 21:47 paliperidone [From Invega] Allergy Verified 05/27/18 21:47 zolpidem [From Ambien] Allergy Verified 05/27/18 21:47 zolpidem tartrate Allergy Verified 05/27/18 21:47 [From Ambien] - Home Medications Medication Instructions Recorded Confirmed Type Levothyroxine Sodium [Synthroid] 125 mcg PO DAILY 12/05/15 05/27/18 History Albuterol Sulfate [Proventil Hfa] 1 puff INH [id number] PRN #0 inh 12/06/15 Rx Valbenazine Tosylate [Ingrezza] 80 mg PO HS 08/25/17 05/27/18 History Lisinopril 10 mg PO DAILY 09/08/17 05/27/18 History Pravastatin Sodium [Pravachol] 40 mg PO HS 09/08/17 05/27/18 History levETIRAcetam [Keppra] 2 tab PO BID 09/08/17 05/27/18 History metFORMIN [Glucophage] 1,000 mg PO BID-WM 09/08/17 05/27/18 History LORazepam [Lorazepam] 1 tab OP BID 05/27/18 05/27/18 History QUEtiapine Fumarate [Seroquel] 300 mg PO HS 05/27/18 05/27/18 History - History PMHx: shizoaffective disorder, bipolar, DM, hypothyroidism, HTN, CAD, multiple personality disorder Stress test 2 yrs ago showed EF 56% PSHx: Chin surgery, bilat cataract surgery FHx: Mother of Gall bladder cancer at 74; maternal aunts of cancer; Father of MS at 74; brother of MS at 46 Social: .5 PY history; does not drink alcohol or use illicit drugs - Review of Systems General: reports: weight/appetite/sleep changes (gained 10 lbs recently, has been drinking a lot of [place]), fatigue. denies: fever/chills ENT: denies: nasal congestion, rhinorrhea Respiratory: reports: cough (1 month ago), shortness of breath, exercise intolerance. denies: congestion Cardiovascular: denies: chest pain, palpitation Gastrointestinal: reports: nausea, diarrhea (occasionally when she eats [employer], not currently). denies: vomiting, constipation, abdominal pain, GI bleeding Genitourinary: reports: incontinence (urge incontinence occasionally) Skin: denies: rashes Neurological: reports: numbness (spot on rt anterior thigh with numbness, not new, has had for a long time), weakness (generalized) - Vital signs BP 122/72, P 68, R 18, O2 96% on RA, Wt 85 kg - Physical Exam Constitutional: NAD, awake, alert and oriented HEENT: normocephalic and atraumatic, PERRLA, conjunctiva clear, MMM, other ( poor dentition) Neck: supple, no LAD Heart: RRR, normal S1/S2, no murmurs/rubs/gallops, pulses present Lungs: CTAB, no respiratory distress, good air movement, no rales/rhonchi, no wheezing Abdomen: soft, non-tender, bowel sounds present, no masses/distention Musculoskeletal: normal structure, normal tone Skin: no rash/lesions, good turgor, capillary refill <2 seconds Heme/Lymphatic: no unusual bruising or bleeding Psychiatric: normal mood and affect, good judgment and insight FMR H&P: Results - Labs Result Diagrams: 05/27/18 13:58 05/28/18 00:05 Lab results: WBC 6.6 thou/uL (4.8-10.8) 05/27/18 13:58 Hgb 13.8 g/dL (12.0-16.0) 05/27/18 13:58 Hct 41.4 % (36.0-47.0) 05/27/18 13:58 MCV 87.4 fL (78.0-98.0) 05/27/18 13:58 Plt Count 251 thou/uL (130-400) 05/27/18 13:58 Neutrophils % 74.0 % (42.0-75.0) 05/27/18 13:58 VBG pCO2 55.6 mmHg (41.0-51.0) H 05/27/18 18:30 VBG pO2 54.0 mmHg (35.0-45.0) H 05/27/18 18:30 Sodium 139 mmol/L (136-145) 05/27/18 19:26 Potassium 4.8 mmol/L (3.5-5.1) 05/27/18 19:26 Chloride 104 mmol/L (98-107) 05/27/18 19:26 Carbon Dioxide 26 mmol/L (22-29) 05/27/18 19:26 BUN 14 mg/dL (9.8-20.1) 05/27/18 19:26 Creatinine 0.82 mg/dL (0.6-1.1) 05/27/18 19:26 Glucose 94 mg/dL (70-105) 05/27/18 19:26 Calcium 9.2 mg/dL (7.8-10.44) 05/27/18 19:26 Total Bilirubin 0.5 mg/dL (0.2-1.2) 05/27/18 13:58 AST 34 U/L (5-34) 05/27/18 13:58 ALT 35 U/L (8-55) 05/27/18 13:58 Alkaline Phosphatase 110 U/L (40-150) 05/27/18 13:58 Serum Total Protein 7.6 g/dL (6.0-8.3) 05/27/18 13:58 Albumin 4.2 g/dL (3.5-5.0) 05/27/18 13:58 Urine Ketones Negative mg/dL (Negative) 05/27/18 18:16 Urine Blood Negative (Negative) 05/27/18 18:16 Urine Nitrite Negative (Negative) 05/27/18 18:16 Ur Leukocyte Esterase Small (Negative) H 05/27/18 18:16 Urine RBC 4-6 HPF (0-3) 05/27/18 18:16 Urine WBC 7-10 HPF (0-3) H 05/27/18 18:16 Ur Squamous Epith Cells 4-6 HPF (0-3) H 05/27/18 18:16 Urine Bacteria None Seen HPF (None Seen) 05/27/18 18:16 - EKG Interpretation EKG: T wave changes, nonspecific FMR H&P: A/P - Problem List (1) Metabolic acidosis Current Visit: Yes Status: Acute Code(s): E87.2 - ACIDOSIS (2) DM2 (diabetes mellitus, type 2) Current Visit: No Status: Chronic Qualifiers: Diabetes mellitus senior care insulin use: without senior care use Diabetes mellitus complication status: without complication Qualified Code(s): E11.9 - Type 2 diabetes mellitus without complications Comment: diet controlled (3) Dehydration Current Visit: Yes Status: Acute Code(s): E86.0 - DEHYDRATION (4) Hyperglycemia due to type 2 diabetes mellitus Current Visit: Yes Status: Acute Code(s): E11.65 - TYPE 2 DIABETES MELLITUS WITH HYPERGLYCEMIA - Plan 57 F with PMH of DM, hypothyroidism, HTN, CAD, schizoaffective disorder, bipolar , and multiple personality disorder who presents for Metabolic acidosis with anion gap, dehydration, and hyperglycemia. Metabolic acidosis with anion gap - Initially had anion gap of 23, corrected with fluids (and without insulin), pH 7.3. Betahydroxybutyrate WNL. - BMP, ABG, LA ordered Dehydration - systolic BP in 90s, improved with fluids (1500 ml NS) - NS @ 125 ml/hr T-wave nonspecific changes -Trop negx1 -CKMB neg Hyperglycemia -Initially had glucose 254, resolved with fluids (and without insulin) Hx of DM -SSI -accuchecks -Diet: consistent carbs FMR H&P: Upper Level - Pertinent history 57F presents to ER because of generalized weakness. She state she has been on her feet most of today traveling around time for errands with poor oral intake. She report weakness without vision change, chest pain, palpitation or dizziness. PMhx: HLD, HTN, Obesity, DM2, hypothyrodism, epilepsy, asthma Shx: Chin surgery Psych: Anxiety, bipolar, depression, schizoaffective disorder, personality disorder, suicidal ideation Social Denies alcohol, drug or tobacco use FHx: Noncontributary Allergies: Abilify, alprazolam, ambien, aripiprazole, fluoxetine, haldol, invega , prozac, xanax, zolpidem Med: Metformin 1000 mg BID, divalproex 500mg 2 tab PO QDlisinpril 10 mg PO QD, Keppra 750 PO BID, Pravastatin 40 mg PO QD, Lorazepam 0.5 mg, 1 tab PO BID - Pertinent findings Initial Vitals: BP 97/69, Pulse96. R: 20. temp 98.4 Gen: Well appearing HEENT: Normocephalic CV: RRR with no m/g/r Resp :CTA bilaterally Abd: Nontender, normoactive bowlel. MSK: No weakness Derm: No obvious rash - Plan Date/Time: 05/28/18 0009 I, [Solomon Guajardo], have evaluated this patient and agree with findings/plan as outlined by biomedical engineering internship resident. Pertinent changes/additions are listed here. 1. Metabolic Acidiosis: Initial bicarb 17, VBG pH of 7.29. B-hydroxybutyrate is not elevated. Plan to obtain lactic acid. No clear etiology for acidosis but has resolved in ER with only rehydration. Will monitor with repeat blood gas and morning lab. 2. Dehydration: Patient was symptomatic, feeling week and SBP under 100. Resolved with IV hydration. Will continue on maintaince fluid, DC tomorrow. 3. Hyperglycemia: Not DKA as not ketosis. Start on SSI and resume home medication. 4. Hx of Epilepsy: Chronic stable issue. Continue home medication divalproex and keppra 5. Hx of HLD: Chronic issue. Continue pravastatin. 6. Hx of HTN: Continue Lisinopril. BP not elevated at this time 7. Hx of Hypothyrodism: Continue levothyroxine. Attending Addendum - Attending Addendum Date/Time: 05/28/18 0747 I personally evaluated the patient and discussed the management with Dr. English. I agree with the History, Examination, Assessment and Plan documented above with any addition or exceptions noted below.
[2018-05-28] MEDS ORDERED: Enoxaparin Sodium 40 MG/0.4 ML SYRINGE SC SCH (00:15)
[2018-05-28 00:28] LABS: Anion Gap 13 mmol/L (10-20); BUN (Urea Nitrogen) 14 mg/dL (9.8-20.1); Calc. Creatinine Clearance 119 mL/min (70-130); Calcium 9.3 mg/dL (7.8-10.44); Carbon Dioxide 24 mmol/L (22-29); Chloride 105 mmol/L (98-107); Estimated GFR-MDRD 84; Glucose 103 mg/dL (70-105); Potassium 4.3 mmol/L (3.5-5.1); Sodium 138 mmol/L (136-145)
[2018-05-28] MEDS: Sodium Chloride 0.9% 1,000 ML IV SCH ×3 (00:43→06:06)
[2018-05-28 00:58] LABS: Lactic Acid 1.7 mmol/L (0.5-2.2)
[2018-05-28 01:27] LABS: CKMB 0.6 ng/mL (0-6.6); Troponin I Less than 0.010 ng/mL (< 0.028)
[2018-05-28 04:09] LABS: Actual Bicarbonate (HCO3a) 25.3 mEq/L (22-28); Base Excess (BEa) -0.5 mEq/L (-2.0 to +3.0); CO2 Tension 46.1 mmHg (35.0-45.0); Hemoglobin (Hb) 12.4 g/dL (12.0-16.0); O2 Tension (PaO2) 78.7 mmHg (80.0-100.0); pH, Arterial 7.36 (7.35-7.45)
[2018-05-28 04:10] LABS: Calcium, Ionized 1.2 mmol/L (1.12-1.30)
[2018-05-28 04:11] LABS: ALV-art Gradient 13.405 (0-20); Puncture Site LRA
[2018-05-28 07:43] VITALS: TEMP 98.2
--- NOTE | 2018-05-28 08:57 | PDOC.FM ---
- Subjective Subjective: No acute events overnight. Pt reports she is feeling better. Reports recently only drinking cokes and no water. She was admitted for possible dka; however, she received no insulin in the ED, ketones were negative as well as B- hydroxybutyrate. She reports resolution of her generalized weakness and is ready to go home. Counseled on importance of diet complince reagrding DM in addition to po hydration with water alone. Pt agreeable. - Objective Vital Signs & Weight: Vital Signs (12 hours) Temp Pulse Resp BP Pulse Ox 05/28/18 07:42 98.2 F 60 18 117/73 95 05/28/18 04:14 98.1 F 63 16 130/85 93 L 05/28/18 00:10 97.8 F 68 16 134/83 96 Weight Weight 85.275 kg I&O: 05/27/18 05/28/18 05/29/18 06:59 06:59 06:59 Intake Total 2100 Balance 2100 Result Diagrams: 05/27/18 13:58 05/28/18 00:05 <Vladimir Mabry - Last Filed: 05/28/18 08:58> - Objective Vital Signs & Weight: Vital Signs (12 hours) Temp Pulse Resp BP Pulse Ox 05/28/18 09:45 98.2 F 60 18 95 05/28/18 07:42 98.2 F 60 18 117/73 95 05/28/18 04:14 98.1 F 63 16 130/85 93 L 05/28/18 00:10 97.8 F 68 16 134/83 96 Weight Weight 85.275 kg I&O: 05/27/18 05/28/18 05/29/18 06:59 06:59 06:59 Intake Total 2100 Balance 2100 Result Diagrams: 05/27/18 13:58 05/28/18 00:05 <Michael Acevedo - Last Filed: 05/28/18 11:42> Phys Exam - Physical Examination Constitutional: NAD HEENT: PERRLA, sclera anicteric Neck: no nodes, no JVD Respiratory: no wheezing, no rales, no rhonchi, clear to auscultation bilateral Cardiovascular: RRR, no significant murmur, no rub Gastrointestinal: soft, non-tender, no distention, positive bowel sounds Musculoskeletal: no edema, pulses present Neurological: non-focal, moves all 4 limbs Deviation from normal: poor insight Skin: no rash, cap refill <2 seconds <Vladimir Mabry - Last Filed: 05/28/18 08:58> Dx/Plan (1) Dehydration Code(s): E86.0 - DEHYDRATION Status: Acute (2) Hyperglycemia due to type 2 diabetes mellitus Code(s): E11.65 - TYPE 2 DIABETES MELLITUS WITH HYPERGLYCEMIA Status: Acute (3) Metabolic acidosis Code(s): E87.2 - ACIDOSIS Status: Acute (4) Asthma Code(s): J45.909 - UNSPECIFIED ASTHMA, UNCOMPLICATED Status: Chronic (5) Hypothyroidism Code(s): E03.9 - HYPOTHYROIDISM, UNSPECIFIED Status: Chronic - Plan Plan: Metabolic acidosis with anion gap - VBG showed very mild acidemia which is to be expected given it was a venous blood gas. ABG was WNL regarding pH and mildly elevated pCO2 which is consistent with her h/o asthma - she has no acid base disturbance currently and her symptoms have resolved Dehydration - systolic BP in 90s, improved with fluids (1500 ml NS) -BP 130s - BS stable - ok for dc to home T-wave nonspecific changes -Trop negx1 -CKMB neg - dneies cp, sob, diaphoresis - stable for DC to home Hyperglycemia -Initially had glucose 254, resolved with fluids (and without insulin) - stable for dc to home - counseled on importance of dietary compliance Hx of DM -SSI -accuchecks -Diet: consistent carbs - BS stable, hyperglycemia resolved <Vladimir Mabry - Last Filed: 05/28/18 08:58> Attending Addendum - Attending Addendum Date/Time: 05/28/18 1140 I personally evaluated the patient and discussed the management with Dr. Mabry I agree with the History, Examination, Assessment and Plan documented above with any addition or exceptions noted below.Recommend patient hold metformin for acute illness with potential for volume depletion or renal function compromise. She is stable for dismissal from observation and can f/u outpatient with her PCP. <Michael Acevedo - Last Filed: 05/28/18 11:42>
[2018-05-28] MEDS ORDERED: Albuterol Sulfate 1.25 MG/3 ML NEB NEB SCH (09:15)
[2018-05-28 13:28] VITALS: BP 128/89
== END 2018-05-28 15:40 | disposition home or self-care (01) | DRG 638 ==
LOC: ERS 13:37 → T4-A 20:03
PROVIDERS: ADMIT Family Medicine; ATTEND Family Medicine
DX: E11.65 Type 2 diabetes mellitus with hyperglycemia (principal); E87.2 Acidosis; E03.9 Hypothyroidism, unspecified; I10 Essential (primary) hypertension; I25.10 Atherosclerotic heart disease of native coronary artery without angina pectoris; F25.9 Schizoaffective disorder, unspecified; F31.9 Bipolar disorder, unspecified; F44.81 Dissociative identity disorder; E86.0 Dehydration; Z79.84 Long term (current) use of oral hypoglycemic drugs; Z80.8 Family history of malignant neoplasm of other organs or systems; Z82.49 Family history of ischemic heart disease and other diseases of the circulatory system
CPT/HCPCS: 36415; 36416; 80053; 81003; 81015; 82010; 82330; 82553; 82803; 82805; 83605; 84484; 85025; 93005; 94760; 96360; 96361; J1650

== ENCOUNTER 2018-06-08 08:14 | Observation (INO) | payer MEDICARE, MEDICAID ==
[2018-06-08 09:19] LABS: #Basophils 0.1 thou/uL (0.0-0.2); #Monocytes 0.5 thou/uL (0.11-0.59); #Neutrophils 3.8 thou/uL (1.40-6.50); %Basophils 1.1 % (0.0-1.0); %Eosinophils 0.4 % (0.0-10.0); %Lymphocytes 32.1 % (21.0-51.0); %Monocytes 7.1 % (0.0-10.0); %Neutrophils 59.3 % (42.0-75.0); Hemoglobin 13.3 g/dL (12.0-16.0); Mean Corpuscular Hemoglobin 30.2 pg (27.0-31.0); Mean Corpuscular Volume 88.6 fL (78.0-98.0); Mean Platelet Volume 6.5 fL (7.4-10.4); Platelet Count 257 thou/uL (130-400); RBC Distribution Width 12.5 % (11.5-14.5); White Blood Cell (WBC) Count 6.3 thou/uL (4.8-10.8)
[2018-06-08 09:44] LABS: ALT (SGPT) 36 U/L (8-55); AST (SGOT) 34 U/L (5-34); Albumin 4.3 g/dL (3.5-5.0); Alkaline Phosphatase 92 U/L (40-150); Anion Gap 12 mmol/L (10-20); BUN (Urea Nitrogen) 7 mg/dL (9.8-20.1); Bilirubin, Total 0.4 mg/dL (0.2-1.2); Calc. Creatinine Clearance 0 mL/min (70-130); Calcium 9.9 mg/dL (7.8-10.44); Carbon Dioxide 28 mmol/L (22-29); Chloride 100 mmol/L (98-107); Estimated GFR-MDRD 84; Globulin 3.1 g/dL (2.4-3.5); Glucose 132 mg/dL (70-105); Potassium 4.5 mmol/L (3.5-5.1); Protein, Total 7.4 g/dL (6.0-8.3); Sodium 135 mmol/L (136-145)
[2018-06-08 13:46] LABS: Bilirubin Negative (Negative); Blood, Urine Negative (Negative); Clarity CLEAR (Clear); Glucose, Urine (Dipstick) Negative (Negative); Leukocyte Negative (Negative); Nitrite Negative (Negative); Protein, Urine (Dipstick) Negative (Neg-Trace); Specific Gravity, Urine 1.011 (1.002-1.036); Urobilinogen 0.2 mg/dL (0.2-1.0); pH, Urine 7.5 (5.0-9.0)
[2018-06-09] MEDS ORDERED: traZODone HCl 50 MG TAB PO PRN (02:30)
[2018-06-09] MEDS ORDERED: traZODone HCl 50 MG TAB ONE ×2 (02:30→20:35)
[2018-06-09 03:54] LABS: Acetaminophen Less than 6.0 mcg/mL (10.0-30.0); Alcohol Less than 10 mg/dL (Less than 10); CK (CPK) 96 U/L (29-168); Salicylate Less than 8.0 mg/dL (15.0-30.0)
[2018-06-09] MEDS ORDERED: Erythromycin Base 0.5% Oint 1 GM TUBE L EYE SCH (05:45)
[2018-06-09 07:51] LABS: Amphetamine Not Detected (NotDetected); Barbiturates Screen Not Detected (NotDetected); Benzodiazepine Screen Detected (NotDetected); Cocaine Metabolite Screen Not Detected (NotDetected); Medtox Control Line Valid? VALID (VALID); Medtox Reader # READER 4; Methadone Not Detected (NotDetected); Methamphetamine Not Detected (NotDetected); Opiate Screen Not Detected (NotDetected); Oxycodone Screen Not Detected (NotDetected); Phencyclidine (PCP) Not Detected (NotDetected); THC/Cannabinoid Screen Not Detected (NotDetected); Tricyclic Screen Not Detected (NotDetected)
--- NOTE | 2018-06-09 08:35 | CT ---
CT HEAD NONCONTRAST: HISTORY: Altered mental status. COMPARISON: 11/21/17. FINDINGS: There is no evidence of acute intracranial hemorrhage or infarct. Ventricles appear normal in size, shape, and position. There is no mass effect or shift of midline structures. Visualized paranasal s inuses remain well aerated. IMPRESSION: No acute intracranial abnormalities are demonstrated on noncontrast CT head. POS: [facility]
--- NOTE | 2018-06-09 08:37 | CT ---
CT CERVICAL SPINE: HISTORY: Altered mental status. Patient with seizure with head trauma. COMPARISON: Comparison is made to a previous CT from 03/02/16. No evidence of acute cervical spine fractures or changes seen. Degenerative changes seen at the T1-2 level. Cervical spine alignment is within normal limits. IMPRESSION: No evidence of acute cervical spine fractures. POS: [facility]
[2018-06-09] MEDS ORDERED: Acetaminophen 325 MG TAB ONE (09:10)
--- NOTE | 2018-06-09 09:26 | RAD ---
RADIOGRAPH CHEST 1 VIEW: HISTORY: 57-year-old female with dehydration. FINDINGS: There are no air space densities, pulmonary edema, pneumothorax, or cardiomegaly. The lateral costop hrenic angles are sharp. IMPRESSION: No acute cardiopulmonary findings. litzy POS: [facility]
[2018-06-09] MEDS ORDERED: Levothyroxine Sodium 100 MCG TAB PO SCH (13:30)
[2018-06-09] MEDS ORDERED: levETIRAcetam 500 MG TAB PO SCH (13:30)
[2018-06-09] MEDS ORDERED: Lisinopril 10 MG TAB PO SCH (13:30)
[2018-06-09] MEDS ORDERED: Lorazepam 1 MG TAB ONE (15:11)
[2018-06-09] MEDS ORDERED: Pravastatin Sodium 40 MG TAB PO SCH (20:15)
[2018-06-10 03:28] LABS: #Lymphocytes 2.3 thou/uL (1.20-3.40); #Monocytes 0.5 thou/uL (0.11-0.59); #Neutrophils 3.5 thou/uL (1.40-6.50); %Basophils 0.4 % (0.0-1.0); %Eosinophils 0.3 % (0.0-10.0); %Lymphocytes 36.8 % (21.0-51.0); %Monocytes 7.9 % (0.0-10.0); %Neutrophils 54.7 % (42.0-75.0); Hemoglobin 11.9 g/dL (12.0-16.0); Mean Corpuscular HGB CONC 33.8 g/dL (32.0-36.0); Mean Corpuscular Hemoglobin 30.5 pg (27.0-31.0); Mean Corpuscular Volume 90.2 fL (78.0-98.0); Mean Platelet Volume 6.2 fL (7.4-10.4); Platelet Count 237 thou/uL (130-400); RBC Distribution Width 12.6 % (11.5-14.5); White Blood Cell (WBC) Count 6.3 thou/uL (4.8-10.8)
[2018-06-10 03:49] LABS: ALT (SGPT) 30 U/L (8-55); AST (SGOT) 24 U/L (5-34); Albumin 3.6 g/dL (3.5-5.0); Alkaline Phosphatase 78 U/L (40-150); Anion Gap 12 mmol/L (10-20); BUN (Urea Nitrogen) 16 mg/dL (9.8-20.1); Bilirubin, Total 0.3 mg/dL (0.2-1.2); Calc. Creatinine Clearance 0 mL/min (70-130); Calcium 9.4 mg/dL (7.8-10.44); Carbon Dioxide 25 mmol/L (22-29); Chloride 103 mmol/L (98-107); Estimated GFR-MDRD 68; Globulin 2.8 g/dL (2.4-3.5); Glucose 151 mg/dL (70-105); Magnesium 1.6 mg/dL (1.6-2.6); Potassium 4.3 mmol/L (3.5-5.1); Protein, Total 6.4 g/dL (6.0-8.3); Sodium 136 mmol/L (136-145)
[2018-06-10 05:03] LABS: Lactic Acid 2.3 mmol/L (0.5-2.2)
[2018-06-10 05:12] LABS: Troponin I 0.113 ng/mL (< 0.028)
--- NOTE | 2018-06-10 08:17 | RAD ---
RADIOGRAPH CHEST 1 VIEW: HISTORY: A 57-year-old female with dehydration. FINDINGS: There are no air space densities, pulmonary edema, pneumothorax, or cardiomegaly. The lateral costop hrenic angles are sharp. IMPRESSION: No acute cardiopulmonary findings. litzy [] POS: [facility]
[2018-06-10 09:27] LABS: Troponin I 0.078 ng/mL (< 0.028)
[2018-06-10] MEDS: Erythromycin Base 0.5% Oint 1 GM TUBE L EYE SCH ×6 (10:14→21:36)
[2018-06-10] MEDS: metFORMIN 500 MG TAB PO SCH ×3 (10:15→17:26)
[2018-06-10] MEDS: Lorazepam 0.5 MG TAB PO SCH ×3 (10:15→21:35)
[2018-06-10] MEDS: levETIRAcetam 500 MG TAB PO SCH ×3 (10:15→21:35)
[2018-06-10] MEDS: Ziprasidone 20 MG CAP PO SCH ×3 (10:15→21:35)
[2018-06-10] MEDS: Lisinopril 10 MG TAB PO SCH (10:16)
[2018-06-10] MEDS: OXcarbazepine 150 MG TAB PO SCH ×3 (10:16→21:35)
[2018-06-10] MEDS: Pravastatin Sodium 40 MG TAB PO SCH ×2 (10:16→21:35)
[2018-06-10 12:52] LABS: Troponin I 0.064 ng/mL (< 0.028)
--- NOTE | 2018-06-10 16:25 | PDOC.FPRHP ---
- History of Present Illness Chief Complaint: Altered mental status History of Present Illness: HPI done via patient and ER record. Patient found to be unreliable historian Patient was reported to be found by police walking the street wearing only a shirt. They brought her to ED on 06/08 on concern of AMS. At that time, head CT was done finding no abnormalities. Cervical spine and CXR was neg. UA was negative. UDS was negative except for benzo. Alcohol was negative. Electrolyte and CBC were within normal limit. tankroom worker saw patient and reported she was acting below baseline. She was then placed on [facility] waiting list. There was no specific time, but at approximately 2100 on 06/09, she was noted to have recovered from a seizure of unknown duration and back to her current mental baseline. At approximately 0300 on 06/10, she was noted to have BP with systolics around 80. Then at 0559 on 06/10 she was noted to be admitted to tele because of concern for elevated troponin. There was no mention of diaphoresis, chest pain, SOB, weakness. - Allergies/Adverse Reactions Allergies Allergy/AdvReac Type Severity Reaction Status Date / Time alprazolam [From Xanax] Allergy Unknown Verified 05/27/18 21:47 fluoxetine HCl [From Prozac] Allergy Unknown Verified 05/27/18 21:47 haloperidol [From Haldol] Allergy Unknown Verified 05/27/18 21:47 haloperidol lactate Allergy Unknown Verified 05/27/18 21:47 [From Haldol] aripiprazole [From Abilify] Allergy Verified 05/27/18 21:47 fluoxetine [From Prozac] Allergy Verified 05/27/18 21:47 paliperidone [From Invega] Allergy Verified 05/27/18 21:47 zolpidem [From Ambien] Allergy Verified 05/27/18 21:47 zolpidem tartrate Allergy Verified 05/27/18 21:47 [From Ambien] - Home Medications Medication Instructions Recorded Confirmed Type Lisinopril 10 mg PO DAILY 09/08/17 06/10/18 History Pravastatin Sodium [Pravachol] 40 mg PO HS 09/08/17 06/10/18 History levETIRAcetam [Keppra] 2 tab PO BID 09/08/17 06/10/18 History metFORMIN [Glucophage] 1,000 mg PO BID-WM 09/08/17 06/10/18 History LORazepam [Lorazepam] 1 tab OP BID 05/27/18 06/10/18 History QUEtiapine Fumarate [Seroquel] 300 mg PO HS 05/27/18 06/10/18 History Levothyroxine Sodium 100 mcg PO DAILY 06/10/18 06/10/18 History OXcarbazepine [Trileptal] 150 mg PO BID 06/10/18 06/10/18 History traZODone HCl [Trazodone HCl] 150 mg PO HS 06/10/18 06/10/18 History - History PMHx:HLD, HTN, obesity, DM2, hypothyrodism, pseudoseizure, asthma PSHx: Rt cataract eye sx, FHx: No reported hx of psych disorder Social: Patient reports she lives at home and manages all her ADL. She denies every using alcohol, tobacco or drug. She endorses getting "sick" and when that happens, she does things like walk the streets naked - Review of Systems General: denies: weight/appetite/sleep changes Eyes: denies: vision changes ENT: denies: nasal congestion Respiratory: denies: cough, shortness of breath Cardiovascular: denies: chest pain, palpitation Gastrointestinal: denies: nausea, vomiting, diarrhea, abdominal pain Genitourinary: denies: dysuria Skin: denies: rashes, itching Musculoskeletal: denies: pain, tenderness Neurological: reports: seizure. denies: weakness Psychological: reports: anxiety, depression - Vital signs BP: [] HR: [] RR: [] Tmax: [] Pox: []% on [] Wt: [] - Physical Exam Constitutional: NAD HEENT: normocephalic and atraumatic, conjunctiva clear Neck: supple Chest: no lesions Heart: RRR, normal S1/S2, no murmurs/rubs/gallops, pulses present Lungs: CTAB, no respiratory distress Abdomen: soft, non-tender, bowel sounds present Musculoskeletal: normal structure Neurological: no focal deficit, CN II-XII intact, normal sensation Skin: no jaundice Heme/Lymphatic: no unusual bruising or bleeding -Psychiatric: AOx3. Answers question appropriately, but goes onto unusual tangents unrelated to questions. FMR H&P: Results - Labs Result Diagrams: 06/10/18 03:18 06/10/18 03:18 Lab results: WBC 6.3 thou/uL (4.8-10.8) 06/10/18 03:18 Hgb 11.9 g/dL (12.0-16.0) L 06/10/18 03:18 Hct 35.2 % (36.0-47.0) L 06/10/18 03:18 MCV 90.2 fL (78.0-98.0) 06/10/18 03:18 Plt Count 237 thou/uL (130-400) 06/10/18 03:18 Neutrophils % 54.7 % (42.0-75.0) 06/10/18 03:18 Sodium 136 mmol/L (136-145) 06/10/18 03:18 Potassium 4.3 mmol/L (3.5-5.1) 06/10/18 03:18 Chloride 103 mmol/L (98-107) 06/10/18 03:18 Carbon Dioxide 25 mmol/L (22-29) 06/10/18 03:18 BUN 16 mg/dL (9.8-20.1) 06/10/18 03:18 Creatinine 0.87 mg/dL (0.6-1.1) 06/10/18 03:18 Glucose 151 mg/dL (70-105) H 06/10/18 03:18 Lactic Acid 2.0 mmol/L (0.5-2.2) 06/10/18 06:53 Calcium 9.4 mg/dL (7.8-10.44) 06/10/18 03:18 Total Bilirubin 0.3 mg/dL (0.2-1.2) 06/10/18 03:18 AST 24 U/L (5-34) 06/10/18 03:18 ALT 30 U/L (8-55) 06/10/18 03:18 Alkaline Phosphatase 78 U/L (40-150) 06/10/18 03:18 Creatine Kinase 96 U/L (29-168) 06/09/18 03:23 Serum Total Protein 6.4 g/dL (6.0-8.3) 06/10/18 03:18 Albumin 3.6 g/dL (3.5-5.0) 06/10/18 03:18 Urine Ketones Negative mg/dL (Negative) 06/08/18 13:28 Urine Blood Negative (Negative) 06/08/18 13:28 Urine Nitrite Negative (Negative) 06/08/18 13:28 Ur Leukocyte Esterase Negative (Negative) 06/08/18 13:28 - Radiology Interpretation CT scan - head Status: image reviewed by me, report reviewed by me (No abnormalities were seen. ) Chest x-ray Status: image reviewed by me, report reviewed by me (No obvious infectious causes for AMS) FMR H&P: A/P - Problem List (1) Elevated troponin Current Visit: Yes Status: Acute Priority: Medium Code(s): R74.8 - ABNORMAL LEVELS OF OTHER SERUM ENZYMES Assessment and Plan: Likely related to seizure activity and is downtrending and patient asymptomatic. Plan to monitor on telemetry at this time. Unlikely to be cardiac in nature. (2) Hypotension Current Visit: Yes Status: Acute Qualifiers: Hypotension type: idiopathic hypotension Qualified Code(s): I95.0 - Idiopathic hypotension Assessment and Plan: Patient had episode of asymptomatic hypotension. Resolved at this time. Patient asymptomatic and not tachycardic. Will continue with PO hydration. (3) Schizoaffective disorder Current Visit: No Status: Acute Code(s): F25.9 - SCHIZOAFFECTIVE DISORDER, UNSPECIFIED Qualifiers: Schizoaffective disorder type: unspecified Qualified Code(s): F25.9 - Schizoaffective disorder, unspecified Comment: with hallucinations Assessment and Plan: Patient is on [facility] wait list. Patient has had multiple psychotic episode and has shown unsafe behavior in the community. (4) Diabetes mellitus type 2 in obese Current Visit: No Status: Chronic Code(s): E11.9 - TYPE 2 DIABETES MELLITUS WITHOUT COMPLICATIONS; E66.9 - OBESITY, UNSPECIFIED Assessment and Plan: Continue with home medication. Her BG has not been extreme high or low here. (5) HLD (hyperlipidemia) Current Visit: No Status: Chronic Code(s): E78.5 - HYPERLIPIDEMIA, UNSPECIFIED Qualifiers: Hyperlipidemia type: Other hyperlipidemia Qualified Code(s): E78.4 - Other hyperlipidemia (6) HTN (hypertension) Current Visit: No Status: Chronic Code(s): I10 - ESSENTIAL (PRIMARY) HYPERTENSION Assessment and Plan: Known chronic issue. At this time, will hold BP medication and gradually retitrate medication as BP allows. (7) Hypothyroidism Current Visit: No Status: Chronic Code(s): E03.9 - HYPOTHYROIDISM, UNSPECIFIED Assessment and Plan: Her TSH is noted to be mildly low. Plan to obtain free t3/t4, titrating levothyroxine once those test returns. (8) Pseudoseizures Current Visit: No Status: Resolved Code(s): F44.5 - CONVERSION DISORDER WITH SEIZURES OR CONVULSIONS Comment: Assessment and Plan: Been evaluated by Neurology last year, where they diagnosis her with pseudoseizure. At this time, patient is on seizure medication. At this time, changing medication abruptly can be difficult on patient. Will introduce to her the concept that medication may not be needed in a slow manner. - Plan Currently Obs Disposition/LOS: Dispo to [place] [facility]MR H&P: Upper Level - Plan Date/Time: 06/10/18 1620 I, [], have evaluated this patient and agree with findings/plan as outlined by promotions intern resident. Pertinent changes/additions are listed here.
[2018-06-10 18:41] LABS: Free T4 (Free Thyroxine) 1.26 ng/dL (0.70-1.48)
[2018-06-11] MEDS: Erythromycin Base 0.5% Oint 1 GM TUBE L EYE SCH ×6 (01:05→21:02)
[2018-06-11] MEDS: Acetaminophen 325 MG TAB PO PRN (04:23)
[2018-06-11] MEDS ORDERED: Levothyroxine Sodium 100 MCG TAB PO SCH (06:00)
[2018-06-11] MEDS ORDERED: Sodium Chloride 0.9% 10 ML ONE (07:33)
[2018-06-11] MEDS: metFORMIN 500 MG TAB PO SCH ×2 (08:45→18:05)
[2018-06-11] MEDS: levETIRAcetam 500 MG TAB PO SCH ×2 (08:45→20:58)
[2018-06-11] MEDS: Ziprasidone 20 MG CAP PO SCH ×2 (08:46→20:59)
[2018-06-11] MEDS: OXcarbazepine 150 MG TAB PO SCH ×2 (08:46→21:01)
[2018-06-11] MEDS: Lisinopril 10 MG TAB PO SCH (08:46)
[2018-06-11] MEDS: Lorazepam 0.5 MG TAB PO SCH ×2 (08:46→21:01)
[2018-06-11] MEDS: Enoxaparin Sodium 40 MG/0.4 ML SYRINGE SC SCH (08:47)
--- NOTE | 2018-06-11 09:53 | PDOC.FM ---
- Subjective Subjective: 57F seen in bed with sitter. History provided by patient, sitter and nurse; patient is unreliable. Per interview, no seizure activity overnight. Her BP has been appropriate. Sitter state there was no usual behavior. Patient denies chest pain, SOB, nuasea , sweats. - Objective MAR Reviewed: Yes Vital Signs & Weight: Vital Signs (12 hours) Temp Pulse Resp BP BP Pulse Ox 06/11/18 08:46 122/68 06/11/18 04:00 97.7 F 84 20 100/56 L 95 06/11/18 00:00 16 Weight Weight 84.504 kg I&O: 06/10/18 06/11/18 06/12/18 06:59 06:59 06:59 Intake Total 120 Balance 120 Result Diagrams: 06/10/18 03:18 06/10/18 03:18 <Solomno Guajardo - Last Filed: 06/11/18 11:36> - Objective Vital Signs & Weight: Vital Signs (12 hours) Temp Pulse Resp BP BP BP BP 06/11/18 16:05 98.6 F 75 16 110/63 06/11/18 14:11 103/67 06/11/18 12:20 97.6 F 67 16 89/54 L 108/55 L 06/11/18 08:46 122/68 06/11/18 08:30 98.6 F 82 16 122/68 122/68 Pulse Ox 06/11/18 16:05 96 06/11/18 14:11 06/11/18 12:20 95 06/11/18 08:46 06/11/18 08:30 98 Weight Weight 84.504 kg I&O: 06/10/18 06/11/18 06/12/18 06:59 06:59 06:59 Intake Total 120 720 Balance 120 720 Result Diagrams: 06/10/18 03:18 06/10/18 03:18 <Bessie Muse - Last Filed: 06/11/18 19:34> Phys Exam - Physical Examination Constitutional: NAD HEENT: moist MMs Neck: no nodes, supple Respiratory: no wheezing, no rales, no rhonchi, clear to auscultation bilateral Cardiovascular: RRR, no significant murmur Gastrointestinal: soft, no distention Musculoskeletal: no edema Neurological: moves all 4 limbs Lymphatic: no nodes Psychiatric: A&O x 3 Does not remember recent event. Flight of idea. Can answer appropriately Skin: no rash <LySolomon M - Last Filed: 06/11/18 11:36> Dx/Plan (1) Elevated troponin Code(s): R74.8 - ABNORMAL LEVELS OF OTHER SERUM ENZYMES Status: Resolved Plan: Down trending trops, again, may be result of patient convulsive episode witness in ED. Patient asymptomatic throughout episode. Doubt cardiac causes. (2) Hypotension Status: Resolved Qualifiers: Hypotension type: idiopathic hypotension Qualified Code(s): I95.0 - Idiopathic hypotension Plan: Resolved issue. (3) Schizoaffective disorder Code(s): F25.9 - SCHIZOAFFECTIVE DISORDER, UNSPECIFIED Status: Acute Qualifiers: Schizoaffective disorder type: unspecified Qualified Code(s): F25.9 - Schizoaffective disorder, unspecified Plan: Continue with her current medication, quetiapoine and geodone. Not showing overt sign of psychosis though she does have odd flight of thoughts. (4) Diabetes mellitus type 2 in obese Code(s): E11.9 - TYPE 2 DIABETES MELLITUS WITHOUT COMPLICATIONS; E66.9 - OBESITY , UNSPECIFIED Status: Chronic Plan: Continue with metformin, mild SSI. Glucose is appropriate. (5) HLD (hyperlipidemia) Code(s): E78.5 - HYPERLIPIDEMIA, UNSPECIFIED Status: Chronic Qualifiers: Hyperlipidemia type: Other hyperlipidemia Plan: Chronic issue. Continue with current pravastatin. (6) HTN (hypertension) Code(s): I10 - ESSENTIAL (PRIMARY) HYPERTENSION Status: Chronic Plan: Chronic issue, for which she is not hypertensive. At this time, continue with lisinopril for renal protection from diabetes. (7) Hypothyroidism Code(s): E03.9 - HYPOTHYROIDISM, UNSPECIFIED Status: Chronic Plan: Subclinical hyperthyroidism based on normal T3/T4 but depressed TSH. Will lower levothyroxine to 88 mcg. (8) Pseudoseizures Code(s): F44.5 - CONVERSION DISORDER WITH SEIZURES OR CONVULSIONS Status: Resolved Plan: Based on neurology consult prior, there is concerned for pseudoseizure/ conversion disorder and not true epilepsy. Discussed with patient but unwilling to change medication at this time. At the very least, she is not taking her keppra at home based on subtherapeutic dosage. <Solomon Guajardo - Last Filed: 06/11/18 11:36> Attending Addendum - Attending Addendum Date/Time: 06/11/181932 I personally evaluated the patient and discussed the management with Dr. Guajadro. I agree with the History, Examination, Assessment and Plan documented above with any addition or exceptions noted below. The patient was placed in obs after a psych hold in the ER for indeterminate troponins. Pt is feeling better today. NO chest pain, palpitations, shortness of breath. She is medically stable for [facility]. Per report, she is on a waiting lists for [facility]. <Bessie Muse - Last Filed: 06/11/18 19:34>
[2018-06-11] MEDS ORDERED: HumaLOG 300 UNITS/3 ML VIAL SC PRN (11:38)
[2018-06-11] MEDS ORDERED: Dextrose 5% in Water 1,000 ML IV PRN (11:38)
[2018-06-11] MEDS ORDERED: Insulin Regular 300 UNITS/3 ML VIAL SC PRN (11:38)
[2018-06-11] MEDS ORDERED: Dextrose 50% Abboject 50 ML SYRINGE SLOW IVP PRN (11:38)
--- NOTE | 2018-06-11 11:49 | PDOC.EVN ---
Event Note - Event Note Event Note: Patient is medically clear. Her troponin and hypotension problem are felt to be resolved at this time. Please referred to patient's latest note on 06/11.
[2018-06-11] MEDS: Pravastatin Sodium 40 MG TAB PO SCH (21:01)
[2018-06-12] MEDS: Erythromycin Base 0.5% Oint 1 GM TUBE L EYE SCH ×6 (01:00→20:16)
--- NOTE | 2018-06-12 05:57 | PDOC.FM ---
- Subjective Subjective: No acute events overnight. Patient has no complaints at this time. - Objective MAR Reviewed: Yes Vital Signs & Weight: Vital Signs (12 hours) Temp Pulse Resp BP BP Pulse Ox 06/12/18 04:00 96.2 F L 88 20 128/70 96 06/11/18 20:00 98.5 F 70 16 113/60 95 Weight Weight 84.992 kg I&O: 06/10/18 06/11/18 06/12/18 06:59 06:59 06:59 Intake Total 120 2180 Output Total 1150 Balance 120 1030 Result Diagrams: 06/10/18 03:18 06/10/18 03:18 <Cayla Muro - Last Filed: 06/12/18 08:56> - Objective Vital Signs & Weight: Vital Signs (12 hours) Temp Pulse Resp BP BP Pulse Ox 06/12/18 14:32 98.3 F 85 16 96 06/12/18 14:00 98 06/12/18 12:40 98.3 F 85 16 120/86 96 06/12/18 08:26 97.3 F L 75 18 06/12/18 07:50 97.3 F L 75 18 134/73 95 06/12/18 04:00 96.2 F L 88 20 128/70 96 Weight Weight 84.992 kg I&O: 06/11/18 06/12/18 06/13/18 06:59 06:59 06:59 Intake Total 120 2180 Output Total 1150 Balance 120 1030 Result Diagrams: 06/10/18 03:18 06/10/18 03:18 <Bessie Yang - Last Filed: 06/12/18 15:39> Phys Exam - Physical Examination HEENT: PERRLA, moist MMs, sclera anicteric Neck: supple, full ROM Respiratory: no wheezing, no rales, clear to auscultation bilateral Cardiovascular: RRR, no significant murmur Gastrointestinal: soft, non-tender Musculoskeletal: no edema, pulses present Neurological: non-focal, moves all 4 limbs Psychiatric: normal affect, A&O x 3 Skin: no rash, cap refill <2 seconds <Cayla Muro - Last Filed: 06/12/18 08:56> Dx/Plan (1) Elevated troponin Code(s): R74.8 - ABNORMAL LEVELS OF OTHER SERUM ENZYMES Status: Resolved (2) Hypotension Status: Resolved Qualifiers: Hypotension type: idiopathic hypotension Qualified Code(s): I95.0 - Idiopathic hypotension (3) Dehydration Code(s): E86.0 - DEHYDRATION Status: Acute (4) Hyperglycemia due to type 2 diabetes mellitus Code(s): E11.65 - TYPE 2 DIABETES MELLITUS WITH HYPERGLYCEMIA Status: Acute (5) Schizoaffective disorder Code(s): F25.9 - SCHIZOAFFECTIVE DISORDER, UNSPECIFIED Status: Acute Qualifiers: Schizoaffective disorder type: unspecified Qualified Code(s): F25.9 - Schizoaffective disorder, unspecified (6) HLD (hyperlipidemia) Code(s): E78.5 - HYPERLIPIDEMIA, UNSPECIFIED Status: Chronic Qualifiers: Hyperlipidemia type: Other hyperlipidemia (7) Hypothyroidism Code(s): E03.9 - HYPOTHYROIDISM, UNSPECIFIED Status: Chronic (8) Pseudoseizures Code(s): F44.5 - CONVERSION DISORDER WITH SEIZURES OR CONVULSIONS Status: Resolved - Plan Plan: 57 yo F with AMS, elevated troponins 1. elevated troponins -likely 2/2 to seizures activity -downtrending, asx -continue monitor on tele 2. hypotension -vitally stable, continue monitoring 3. schizoaff. disorder with hallucinations -currently aw[facility] placement at [facility] (on wait list) -concern for harm to self and others 4. DM2 -glucose levels stable -contine home meds 5. HLD -continue home meds 6. HTN -BPs stable, resumed home meds 7. Hypothyroidism -started on syntyroid 8. h/o of pseudoseizures -continue home anti-epileptics due to concern for precipitating seizures if wean off dvt ppx: lovenox dispo: medically cleared, awaiting [facility] plcmnt plan discussed w/ dr. yang <Cayla Muro - Last Filed: 06/12/18 08:56> Attending Addendum - Attending Addendum Date/Time: 06/12/18 6997 I personally evaluated the patient and discussed the management with Dr. Muro. I agree with the History, Examination, Assessment and Plan documented above with any addition or exceptions noted below. The patient remains stable. She will be transferred to [facility]. She is stable at any time for [facility] placement. On waiting list for [facility] per report. <Bessie Yang - Last Filed: 06/12/18 15:39>
[2018-06-12] MEDS ORDERED: Levothyroxine Sodium 88 MCG TAB PO SCH (06:00)
[2018-06-12] MEDS: metFORMIN 500 MG TAB PO SCH ×2 (08:25→16:16)
[2018-06-12] MEDS: Lorazepam 0.5 MG TAB PO SCH ×2 (08:26→20:17)
[2018-06-12] MEDS: levETIRAcetam 500 MG TAB PO SCH ×2 (08:26→20:16)
[2018-06-12] MEDS: Ziprasidone 20 MG CAP PO SCH (08:26)
[2018-06-12] MEDS: Enoxaparin Sodium 40 MG/0.4 ML SYRINGE SC SCH (08:26)
[2018-06-12] MEDS: Lisinopril 10 MG TAB PO SCH (08:27)
[2018-06-12] MEDS: OXcarbazepine 150 MG TAB PO SCH ×2 (08:28→20:18)
[2018-06-12] MEDS: Pravastatin Sodium 40 MG TAB PO SCH (20:17)
[2018-06-12] MEDS ORDERED: OXcarbazepine 150 MG TAB PO SCH (21:00)
[2018-06-12] MEDS ORDERED: levETIRAcetam 500 MG TAB PO SCH (21:00)
[2018-06-12] MEDS ORDERED: Pravastatin Sodium 40 MG TAB PO SCH (21:00)
[2018-06-12] MEDS: traZODone HCl 150 MG TAB PO SCH (22:08)
[2018-06-13] MEDS: Erythromycin Base 0.5% Oint 1 GM TUBE L EYE SCH ×6 (01:55→20:51)
[2018-06-13] MEDS: Acetaminophen 325 MG TAB PO PRN (05:00)
[2018-06-13] MEDS: Levothyroxine Sodium 100 MCG TAB PO SCH (05:00)
--- NOTE | 2018-06-13 06:27 | PDOC.FM ---
- Subjective Subjective: No overnight events. Reports [facility] came to see her yesterday evening. No complaints or questions. Denies pain. Reports mood is good. - Objective MAR Reviewed: Yes Vital Signs & Weight: Vital Signs (12 hours) Temp Pulse Resp BP BP Pulse Ox 06/13/18 04:03 98.4 F 76 18 123/62 97 06/12/18 20:00 98.4 F 70 18 121/71 98 Weight Weight 86.228 kg I&O: 06/11/18 06/12/18 06/13/18 06:59 06:59 06:59 Intake Total 120 2180 1510 Output Total 1150 Balance 120 1030 1510 Result Diagrams: 06/10/18 03:18 06/10/18 03:18 Phys Exam - Physical Examination Constitutional: NAD Psychiatric: normal affect, A&O x 3 Dx/Plan (1) Elevated troponin Code(s): R74.8 - ABNORMAL LEVELS OF OTHER SERUM ENZYMES Status: Resolved (2) Hypotension Status: Resolved Qualifiers: Hypotension type: idiopathic hypotension Qualified Code(s): I95.0 - Idiopathic hypotension (3) Dehydration Code(s): E86.0 - DEHYDRATION Status: Acute (4) Hyperglycemia due to type 2 diabetes mellitus Code(s): E11.65 - TYPE 2 DIABETES MELLITUS WITH HYPERGLYCEMIA Status: Acute (5) Schizoaffective disorder Code(s): F25.9 - SCHIZOAFFECTIVE DISORDER, UNSPECIFIED Status: Acute Qualifiers: Schizoaffective disorder type: unspecified Qualified Code(s): F25.9 - Schizoaffective disorder, unspecified (6) Hypothyroidism Code(s): E03.9 - HYPOTHYROIDISM, UNSPECIFIED Status: Chronic (7) Pseudoseizures Code(s): F44.5 - CONVERSION DISORDER WITH SEIZURES OR CONVULSIONS Status: Resolved - Plan Plan: AMS - Improved with d/c of Geodon, had been started during hospitalization - Continue to monitor Schizoaff. disorder with hallucinations - Currently awaiting placement, plan for Friday - Awaiting [facility] safety plan screen if not able to d/c to [facility] - Continue Seroquel 300mg, Ativan 0.5mg, Trazadone 150mg DM2 - SSI - Accuchecks - Continue home Metformin 1000mg BID HLD - Continue home Pravastatin 40mg HTN - Continue home Lisinopril 10mg Hypothyroidism - Continue synthroid 100mcg Hx of pseudoseizures - Continue home Keppra 1000mg BID, Trileptal 150mg due to concern for precipitating seizures if wean off DVT ppx: lovenox Dispo: medically cleared, awaiting [facility] placement
[2018-06-13] MEDS ORDERED: metFORMIN 500 MG TAB PO SCH (08:00)
[2018-06-13] MEDS: OXcarbazepine 150 MG TAB PO SCH ×2 (08:57→20:51)
[2018-06-13] MEDS: metFORMIN 500 MG TAB PO SCH ×2 (08:57→16:25)
[2018-06-13] MEDS: Lorazepam 0.5 MG TAB PO SCH ×2 (08:58→20:51)
[2018-06-13] MEDS: Lisinopril 10 MG TAB PO SCH ×2 (08:58→09:01)
[2018-06-13] MEDS: Enoxaparin Sodium 40 MG/0.4 ML SYRINGE SC SCH (08:58)
[2018-06-13] MEDS: levETIRAcetam 500 MG TAB PO SCH ×2 (08:58→20:51)
[2018-06-13] MEDS ORDERED: Lisinopril 10 MG TAB PO SCH (09:00)
--- NOTE | 2018-06-13 10:46 | EKG ---
Test Reason : Blood Pressure : / mmHG Vent. Rate : 111 BPM Atrial Rate : 111 BPM P-R Int : 144 ms QRS Dur : 076 ms QT Int : 334 ms P-R-T Axes : 061 057 064 degrees QTc Int : 454 ms Sinus tachycardia Otherwise normal ECG Confirmed by JUAN MCCABE, RONNIE Prince ([id number]), newspaper or periodical editor BEBA SHI ([id number]) on 06/13/2018 10:45:56 AM Referred By: Confirmed By:RONNIE MARTINEZ MD
[2018-06-13] MEDS: Pravastatin Sodium 40 MG TAB PO SCH (20:50)
[2018-06-13] MEDS: traZODone HCl 150 MG TAB PO SCH (22:27)
[2018-06-14] MEDS: Erythromycin Base 0.5% Oint 1 GM TUBE L EYE SCH ×6 (01:04→20:25)
[2018-06-14] MEDS: Acetaminophen 325 MG TAB PO PRN (04:09)
[2018-06-14] MEDS: Levothyroxine Sodium 100 MCG TAB PO SCH (05:28)
--- NOTE | 2018-06-14 06:27 | PDOC.FM ---
- Subjective Subjective: No overnight events. No complaints this morning. Denies chest pain, shortness of breath. - Objective MAR Reviewed: Yes Vital Signs & Weight: Vital Signs (12 hours) Temp Pulse Resp BP Pulse Ox 06/14/18 00:11 97.5 F L 69 20 110/62 97 06/13/18 20:50 98.5 F 84 20 06/13/18 19:32 98.5 F 84 20 105/56 L 94 L Weight Weight 86.228 kg I&O: 06/12/18 06/13/18 06/14/18 06:59 06:59 06:59 Intake Total 2180 1510 960 Output Total 1150 Balance 1030 1510 960 Result Diagrams: 06/10/18 03:18 06/10/18 03:18 Dx/Plan (1) Elevated troponin Code(s): R74.8 - ABNORMAL LEVELS OF OTHER SERUM ENZYMES Status: Resolved (2) Hypotension Status: Resolved Qualifiers: Hypotension type: idiopathic hypotension Qualified Code(s): I95.0 - Idiopathic hypotension (3) Dehydration Code(s): E86.0 - DEHYDRATION Status: Acute (4) Hyperglycemia due to type 2 diabetes mellitus Code(s): E11.65 - TYPE 2 DIABETES MELLITUS WITH HYPERGLYCEMIA Status: Acute (5) Schizoaffective disorder Code(s): F25.9 - SCHIZOAFFECTIVE DISORDER, UNSPECIFIED Status: Acute Qualifiers: Schizoaffective disorder type: unspecified Qualified Code(s): F25.9 - Schizoaffective disorder, unspecified (6) Hypothyroidism Code(s): E03.9 - HYPOTHYROIDISM, UNSPECIFIED Status: Chronic - Plan Plan: AMS - Improved with d/c of Geodon, had been started during hospitalization - Continue to monitor Schizoaff. disorder with hallucinations - Currently awaiting placement, plan for Friday - Awaiting [facility] safety plan screen if not able to d/c to [facility] - Continue Seroquel 300mg, Ativan 0.5mg, Trazadone 150mg DM2 - SSI - Accuchecks - Continue home Metformin 1000mg BID HLD - Continue home Pravastatin 40mg HTN - Continue home Lisinopril 10mg Hypothyroidism - Continue synthroid 100mcg Hx of pseudoseizures - Continue home Keppra 1000mg BID, Trileptal 150mg due to concern for precipitating seizures if wean off DVT ppx: lovenox Dispo: medically cleared, awaiting [facility] placement
[2018-06-14] MEDS: levETIRAcetam 500 MG TAB PO SCH ×2 (08:34→20:25)
[2018-06-14] MEDS: metFORMIN 500 MG TAB PO SCH ×2 (08:34→16:41)
[2018-06-14] MEDS: Lorazepam 0.5 MG TAB PO SCH ×2 (08:34→20:25)
[2018-06-14] MEDS: OXcarbazepine 150 MG TAB PO SCH ×2 (08:35→20:26)
[2018-06-14] MEDS: Enoxaparin Sodium 40 MG/0.4 ML SYRINGE SC SCH (08:35)
[2018-06-14] MEDS: Lisinopril 10 MG TAB PO SCH (08:36)
--- NOTE | 2018-06-14 19:41 | ADD-PRG ---
DATE OF SERVICE: 06/13/2018 Please see the note from Dr. Jackson', for which I agree. The patient was seen, evaluated, examined, and discussed with the residents. This is a 58-year-old female with schizoaffective disorder, bipolar disorder, numerous psychiatric is sues, and possible epilepsy versus pseudoseizures, who came in with just altered mental status. Real ly, we are not sure why the altered mental status was just completely psychiatric, as there is really nothing that showed up metabolically and she seems completely stable from our standpoint other than she had a low Keppra level, but is cleared medically to go to a psych facility and awaiting on [facility]'s recommendations about possibly sending to [facility] or home on current medicines w ith close followup and supervision by them.
--- NOTE | 2018-06-14 19:44 | ADD-PRG ---
ADDENDUM A 57-year-old female who is here for acute psychosis basically and there is question of something met abolic is going on, but no evidence of that at all on exam and we have fairly stable on her current p sych medications and we are just really waiting on [facility]'s input and placement issues. It does sound like maybe we are going able to place her in [facility] hopefully, but currently stable ot [facility].
[2018-06-14] MEDS: Pravastatin Sodium 40 MG TAB PO SCH (20:25)
[2018-06-14] MEDS: traZODone HCl 150 MG TAB PO SCH (20:25)
[2018-06-15] MEDS: Erythromycin Base 0.5% Oint 1 GM TUBE L EYE SCH ×6 (00:46→20:49)
[2018-06-15] MEDS: Levothyroxine Sodium 100 MCG TAB PO SCH (04:43)
--- NOTE | 2018-06-15 05:30 | PDOC.FM ---
- Subjective Subjective: No acute events overnight, patient has no complaints at this time. Expressed she is "ready to go to [facility]." Denies auditory and visual hallucinations. - Objective MAR Reviewed: Yes Vital Signs & Weight: Vital Signs (12 hours) Temp Pulse Resp BP Pulse Ox 06/14/18 20:00 98.8 F 82 20 126/62 94 L Weight Weight 86.228 kg I&O: 06/13/18 06/14/18 06/15/18 06:59 06:59 06:59 Intake Total 1510 960 600 Balance 1510 960 600 Result Diagrams: 06/10/18 03:18 06/10/18 03:18 <Cayla Muro - Last Filed: 06/15/18 08:59> - Objective Vital Signs & Weight: Vital Signs (12 hours) Temp Pulse Resp BP BP BP Pulse Ox 06/15/18 11:13 98.2 F 64 16 99/62 98 06/15/18 09:40 115/64 06/15/18 08:26 97.3 F L 79 16 115/64 93 L 06/15/18 07:41 98.8 F 82 20 Weight Weight 86.228 kg I&O: 06/14/18 06/15/18 06/16/18 06:59 06:59 06:59 Intake Total 960 600 Balance 960 600 Result Diagrams: 06/10/18 03:18 06/10/18 03:18 <José Manuel Bass - Last Filed: 06/15/18 12:08> Phys Exam - Physical Examination Constitutional: NAD HEENT: moist MMs Neck: full ROM Respiratory: no wheezing, no rales, clear to auscultation bilateral Cardiovascular: RRR, no significant murmur Gastrointestinal: non-tender Musculoskeletal: no edema, pulses present Neurological: non-focal, moves all 4 limbs Psychiatric: normal affect, A&O x 3 Deviation from normal: tangential speech but alert and oriented. Skin: no rash, cap refill <2 seconds <Cayla Muro - Last Filed: 06/15/18 08:59> Dx/Plan (1) Elevated troponin Code(s): R74.8 - ABNORMAL LEVELS OF OTHER SERUM ENZYMES Status: Resolved (2) Hypotension Status: Resolved Qualifiers: Hypotension type: idiopathic hypotension Qualified Code(s): I95.0 - Idiopathic hypotension (3) Dehydration Code(s): E86.0 - DEHYDRATION Status: Acute (4) Hyperglycemia due to type 2 diabetes mellitus Code(s): E11.65 - TYPE 2 DIABETES MELLITUS WITH HYPERGLYCEMIA Status: Acute (5) Schizoaffective disorder Code(s): F25.9 - SCHIZOAFFECTIVE DISORDER, UNSPECIFIED Status: Acute Qualifiers: Schizoaffective disorder type: unspecified Qualified Code(s): F25.9 - Schizoaffective disorder, unspecified (6) HLD (hyperlipidemia) Code(s): E78.5 - HYPERLIPIDEMIA, UNSPECIFIED Status: Chronic Qualifiers: Hyperlipidemia type: Other hyperlipidemia (7) Hypothyroidism Code(s): E03.9 - HYPOTHYROIDISM, UNSPECIFIED Status: Chronic (8) Pseudoseizures Code(s): F44.5 - CONVERSION DISORDER WITH SEIZURES OR CONVULSIONS Status: Resolved - Plan Plan: 57 yo F with h/o of SCZ Disorder with psychotic features admitted for AMS 2/2 acute psychosis, elevated troponins AMS -below nml baseline (able to perform ADLs) per [facility] rep who has seen her in past -improved with d/c of Geodon Plan: continue to re-orient, monitor Schizoaff. disorder with hallucinations -currently awaiting placement at [facility] -wait listed -continue trazodone, seroquel, ativan Plan: Pending [facility] safety plan screen once pt. returns to mental status baseline DM2 -POC stable on metformin -SS, prn Elevated troponins, resolved -likely 2/2 to seizures activity Hypotension -vitally stable, continue monitoring HLD -continue pravastatin HTN -BPs stable, continue home lisinopril Hypothyroidism -Continue synthroid H/o of pseudoseizures -Continue home trileptal, keppra dvt ppx: lovenox dispo: medically cleared, resumed all home meds, d/c any new started meds here at hospital. awaiting [facility] placement vs. home safety plan plan discussed w/ dr. bass <Cayla Muro - Last Filed: 06/15/18 08:59> Attending Addendum - Attending Addendum Date/Time: 06/15/18 1207 I personally evaluated the patient and discussed the management with Dr. Muro. I agree with the History, Examination, Assessment and Plan documented above with any addition or exceptions noted below. Patient doing well at overall at baseline mental status. She is medically clear for discharge but awaiting placement at [facility] per [facility]. Will continue basic monitoring and adjust chronic meds as necessary. Needs her lisinopril restarted for DM renal protection. <José Manuel Bass R - Last Filed: 06/15/18 12:08>
[2018-06-15] MEDS: levETIRAcetam 500 MG TAB PO SCH ×2 (09:38→20:48)
[2018-06-15] MEDS: Lorazepam 0.5 MG TAB PO SCH ×2 (09:38→20:48)
[2018-06-15] MEDS: metFORMIN 500 MG TAB PO SCH ×2 (09:38→16:56)
[2018-06-15] MEDS: Enoxaparin Sodium 40 MG/0.4 ML SYRINGE SC SCH (09:40)
[2018-06-15] MEDS: Lisinopril 10 MG TAB PO SCH (09:40)
[2018-06-15] MEDS: OXcarbazepine 150 MG TAB PO SCH ×2 (09:41→20:48)
[2018-06-15] MEDS: Pravastatin Sodium 40 MG TAB PO SCH (20:49)
[2018-06-15] MEDS: traZODone HCl 150 MG TAB PO SCH (20:49)
[2018-06-16] MEDS: Erythromycin Base 0.5% Oint 1 GM TUBE L EYE SCH ×2 (02:03→06:33)
--- NOTE | 2018-06-16 05:30 | PDOC.FM ---
- Subjective Subjective: No events overnight. Pt has no complaints or concerns. She is awaiting [facility] placement. She denies SOB, chest pain, NVD. - Objective Vital Signs & Weight: Vital Signs (12 hours) Temp Pulse Resp BP Pulse Ox 06/16/18 00:00 98.1 F 89 20 98/53 L 92 L 06/15/18 20:00 98.3 F 80 20 115/70 95 Weight Weight 86.228 kg I&O: 06/14/18 06/15/18 06/16/18 06:59 06:59 06:59 Intake Total 960 600 Balance 960 600 Result Diagrams: 06/10/18 03:18 06/10/18 03:18 <Karine Boyd - Last Filed: 06/16/18 12:08> - Objective Vital Signs & Weight: Vital Signs (12 hours) Temp Pulse Resp BP BP Pulse Ox 06/16/18 11:23 98.2 F 88 20 126/73 92 L 06/16/18 08:05 151/73 H 06/16/18 08:00 97.8 F 80 18 151/73 H 92 L 06/16/18 07:31 97.8 F 80 18 127/61 91 L Weight Weight 86.228 kg I&O: 06/15/18 06/16/18 06/17/18 06:59 06:59 06:59 Intake Total 600 Output Total 1000 Balance 600 -1000 Result Diagrams: 06/10/18 03:18 06/10/18 03:18 <José Manuel Cohn - Last Filed: 06/16/18 12:34> Phys Exam - Physical Examination Constitutional: NAD HEENT: PERRLA, moist MMs, sclera anicteric Neck: no JVD, supple, full ROM Respiratory: no wheezing, no rales, no rhonchi, clear to auscultation bilateral Cardiovascular: RRR, no significant murmur, no rub Gastrointestinal: soft, non-tender, positive bowel sounds Musculoskeletal: no edema, pulses present Neurological: non-focal, moves all 4 limbs Psychiatric: A&O x 3 Deviation from normal: tangential speech but axox3 Skin: no rash <Karine Boyd - Last Filed: 06/16/18 12:08> Dx/Plan (1) Schizoaffective disorder Code(s): F25.9 - SCHIZOAFFECTIVE DISORDER, UNSPECIFIED Status: Acute Qualifiers: Schizoaffective disorder type: unspecified Qualified Code(s): F25.9 - Schizoaffective disorder, unspecified (2) DM2 (diabetes mellitus, type 2) Status: Chronic Qualifiers: Diabetes mellitus long term care administrator insulin use: without long term care administrator use Diabetes mellitus complication status: without complication Qualified Code(s): E11.9 - Type 2 diabetes mellitus without complications (3) HLD (hyperlipidemia) Code(s): E78.5 - HYPERLIPIDEMIA, UNSPECIFIED Status: Chronic Qualifiers: Hyperlipidemia type: Other hyperlipidemia (4) HTN (hypertension) Code(s): I10 - ESSENTIAL (PRIMARY) HYPERTENSION Status: Chronic Qualifiers: Hypertension type: essential hypertension Qualified Code(s): I10 - Essential (primary) hypertension (5) Hypothyroidism Code(s): E03.9 - HYPOTHYROIDISM, UNSPECIFIED Status: Chronic (6) Pseudoseizures Code(s): F44.5 - CONVERSION DISORDER WITH SEIZURES OR CONVULSIONS Status: Resolved - Plan Plan: 57 yo F with h/o of SCZ Disorder with psychotic features admitted for AMS 2/2 acute psychosis AMS - below nml baseline (able to perform ADLs) per [facility] rep who has seen her in past - improved with d/c of Geodon - continue to re-orient, monitor Schizoaff. disorder with hallucinations - currently awaiting placement at [facility] -wait listed - continue trazodone, seroquel, ativan DM2 -POC stable on metformin -SS, prn Elevated troponins, resolved -likely 2/2 to seizures activity Hypotension -vitally stable, continue monitoring HLD -continue pravastatin HTN -BPs stable, continue home lisinopril; BPs 98-151/53-70 Hypothyroidism -Continue synthroid H/o of pseudoseizures -Continue home trileptal, keppra DISPO: medically cleared, resumed all home meds, d/c any new started meds here at hospital. awaiting [facility] placement. INformed by case managment she is next on the list. CODE: FULL Case discussed w/ Mansi <Karine Boyd - Last Filed: 06/16/18 12:08> Attending Addendum - Attending Addendum Date/Time: 06/16/18 1233 I personally evaluated the patient and discussed the management with Dr. Boyd. I agree with the History, Examination, Assessment and Plan documented above with any addition or exceptions noted below. Patient stable. Awaiting [facility] placement per [facility]. <José Manuel Cohn - Last Filed: 06/16/18 12:34>
[2018-06-16] MEDS: Levothyroxine Sodium 100 MCG TAB PO SCH (06:33)
[2018-06-16] MEDS: levETIRAcetam 500 MG TAB PO SCH ×2 (08:05→20:45)
[2018-06-16] MEDS: metFORMIN 500 MG TAB PO SCH ×2 (08:05→17:33)
[2018-06-16] MEDS: Lisinopril 10 MG TAB PO SCH (08:05)
[2018-06-16] MEDS: Enoxaparin Sodium 40 MG/0.4 ML SYRINGE SC SCH (08:06)
[2018-06-16] MEDS: OXcarbazepine 150 MG TAB PO SCH ×2 (08:06→20:45)
[2018-06-16] MEDS: Lorazepam 0.5 MG TAB PO SCH ×2 (08:06→20:45)
[2018-06-16] MEDS: Pravastatin Sodium 40 MG TAB PO SCH (20:45)
[2018-06-16] MEDS: traZODone HCl 150 MG TAB PO SCH (20:45)
[2018-06-17] MEDS: Levothyroxine Sodium 100 MCG TAB PO SCH (05:01)
--- NOTE | 2018-06-17 05:29 | PDOC.FM ---
- Subjective Subjective: No events overnight. patient has no complaints or concerns. She is ready to go to [facility]. She denies any SOB, chest or abdominal pain, NVD, subjective fever. - Objective Vital Signs & Weight: Vital Signs (12 hours) Temp Pulse Resp BP BP Pulse Ox 06/17/18 04:24 97.9 F 77 16 135/75 97 06/17/18 00:00 97.8 F 70 18 106/56 L 94 L 06/16/18 20:00 98.1 F 83 20 06/16/18 19:25 98.1 F 83 20 136/83 93 L Weight Weight 86.228 kg I&O: 06/15/18 06/16/18 06/17/18 06:59 06:59 06:59 Intake Total 600 Output Total 1000 Balance 600 -1000 Result Diagrams: 06/10/18 03:18 06/10/18 03:18 <Karine Boyd - Last Filed: 06/17/18 10:11> - Objective Vital Signs & Weight: Vital Signs (12 hours) Temp Pulse Resp BP BP Pulse Ox 06/17/18 08:49 151/73 H 06/17/18 08:01 98.4 F 81 16 124/65 97 06/17/18 08:00 98.4 F 81 16 06/17/18 07:59 99.3 F 91 20 131/72 94 L 06/17/18 04:24 97.9 F 77 16 135/75 97 Weight Weight 86.228 kg I&O: 06/16/18 06/17/18 06/18/18 06:59 06:59 06:59 Output Total 1000 Balance -1000 Result Diagrams: 06/10/18 03:18 06/10/18 03:18 <José Manuel Cohn R - Last Filed: 06/17/18 12:15> Phys Exam - Physical Examination Constitutional: NAD HEENT: PERRLA, moist MMs, sclera anicteric Neck: no JVD, supple, full ROM Respiratory: no wheezing, no rales, clear to auscultation bilateral Cardiovascular: RRR, no significant murmur, no rub Gastrointestinal: soft, non-tender, positive bowel sounds Musculoskeletal: no edema, pulses present Neurological: non-focal, moves all 4 limbs Psychiatric: A&O x 3 Skin: no rash <Karine Boyd - Last Filed: 06/17/18 10:11> Dx/Plan (1) Schizoaffective disorder Code(s): F25.9 - SCHIZOAFFECTIVE DISORDER, UNSPECIFIED Status: Acute Qualifiers: Schizoaffective disorder type: unspecified Qualified Code(s): F25.9 - Schizoaffective disorder, unspecified (2) DM2 (diabetes mellitus, type 2) Status: Chronic Qualifiers: Diabetes mellitus terminologist insulin use: without skilled nursing use Diabetes mellitus complication status: without complication Qualified Code(s): E11.9 - Type 2 diabetes mellitus without complications (3) HLD (hyperlipidemia) Code(s): E78.5 - HYPERLIPIDEMIA, UNSPECIFIED Status: Chronic Qualifiers: Hyperlipidemia type: Other hyperlipidemia (4) HTN (hypertension) Code(s): I10 - ESSENTIAL (PRIMARY) HYPERTENSION Status: Chronic Qualifiers: Hypertension type: essential hypertension Qualified Code(s): I10 - Essential (primary) hypertension (5) Hypothyroidism Code(s): E03.9 - HYPOTHYROIDISM, UNSPECIFIED Status: Chronic (6) Pseudoseizures Code(s): F44.5 - CONVERSION DISORDER WITH SEIZURES OR CONVULSIONS Status: Resolved - Plan Plan: 57 yo F with h/o of SCZ Disorder with psychotic features admitted for AMS 2/2 acute psychosis. Awaiting [facility] placement. AMS - below nml baseline (able to perform ADLs) per [facility] rep who has seen her in past - improved with d/c of Geodon - continue to re-orient, monitor Schizoaff. disorder with hallucinations - currently awaiting placement at [facility] - next on waitlist - continue trazodone, seroquel, ativan DM2 -POC stable on metformin -SS, prn Elevated troponins, resolved -likely 2/2 to seizures activity Hypotension -vitally stable, continue monitoring HLD -continue pravastatin HTN -BPs stable, continue home lisinopril; BPs 106-135/50s-75 Hypothyroidism -Continue synthroid H/o of pseudoseizures -Continue home trileptal, keppra DISPO: medically cleared, resumed all home meds, d/c any new started meds here at hospital. Awaiting [facility] placement. INformed by case managment she is next on the list. CODE: FULL Case discussed w/ Mansi <Karine Boyd - Last Filed: 06/17/18 10:11> Attending Addendum - Attending Addendum Date/Time: 06/17/18 1214 I personally evaluated the patient and discussed the management with Dr. Boyd. I agree with the History, Examination, Assessment and Plan documented above with any addition or exceptions noted below. Patient doing well and no active changes. Awaiting [facility] placement. <José Manuel Cohn - Last Filed: 06/17/18 12:15>
[2018-06-17] MEDS: Lisinopril 10 MG TAB PO SCH (08:49)
[2018-06-17] MEDS: OXcarbazepine 150 MG TAB PO SCH ×2 (08:49→19:57)
[2018-06-17] MEDS: metFORMIN 500 MG TAB PO SCH ×2 (08:49→17:40)
[2018-06-17] MEDS: Enoxaparin Sodium 40 MG/0.4 ML SYRINGE SC SCH (08:50)
[2018-06-17] MEDS: Lorazepam 0.5 MG TAB PO SCH ×2 (08:50→19:56)
[2018-06-17] MEDS: levETIRAcetam 500 MG TAB PO SCH ×2 (08:50→19:56)
[2018-06-17] MEDS: traZODone HCl 150 MG TAB PO SCH (19:56)
[2018-06-17] MEDS: Pravastatin Sodium 40 MG TAB PO SCH (19:57)
[2018-06-18] MEDS: Levothyroxine Sodium 100 MCG TAB PO SCH (05:32)
--- NOTE | 2018-06-18 05:44 | PDOC.FM ---
- Subjective Subjective: No events overnight. She has no complaints or concerns. She is ready for [facility]. She denies SOB, chest or abdominal pain, NVD, fever. - Objective MAR Reviewed: Yes Vital Signs & Weight: Vital Signs (12 hours) Temp Pulse Resp BP Pulse Ox 06/17/18 20:00 98 F 77 20 06/17/18 19:55 98 F 77 20 123/68 94 L Weight Weight 86.228 kg I&O: 06/16/18 06/17/18 06/18/18 06:59 06:59 06:59 Output Total 1000 Balance -1000 Result Diagrams: 06/10/18 03:18 06/10/18 03:18 <Karine Boyd - Last Filed: 06/18/18 09:17> - Objective Vital Signs & Weight: Vital Signs (12 hours) Temp Pulse Resp BP BP Pulse Ox 06/18/18 08:27 104/59 L 06/18/18 08:00 97.7 F 84 20 06/18/18 07:23 97.7 F 84 20 104/59 L 98 Weight Admit Weight 85.094 kg Weight 86.228 kg I&O: 06/17/18 06/18/18 06/19/18 06:59 06:59 06:59 Output Total 1000 Balance -1000 Result Diagrams: 06/10/18 03:18 06/10/18 03:18 <José Manuel Cohn - Last Filed: 06/18/18 12:48> Phys Exam - Physical Examination Constitutional: NAD HEENT: PERRLA, moist MMs, sclera anicteric Neck: supple, full ROM Respiratory: clear to auscultation bilateral Cardiovascular: RRR, no significant murmur, no rub Gastrointestinal: soft, non-tender, no distention, positive bowel sounds Musculoskeletal: no edema, pulses present Neurological: non-focal, moves all 4 limbs Deviation from normal: tangential Skin: no rash <Karine Boyd - Last Filed: 06/18/18 09:17> Dx/Plan (1) Schizoaffective disorder Code(s): F25.9 - SCHIZOAFFECTIVE DISORDER, UNSPECIFIED Status: Acute Qualifiers: Schizoaffective disorder type: unspecified Qualified Code(s): F25.9 - Schizoaffective disorder, unspecified (2) DM2 (diabetes mellitus, type 2) Status: Chronic Qualifiers: 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: without correction use Diabetes mellitus complication status: without complication Qualified Code(s): E11.9 - Type 2 diabetes mellitus without complications (3) HLD (hyperlipidemia) Code(s): E78.5 - HYPERLIPIDEMIA, UNSPECIFIED Status: Chronic Qualifiers: Hyperlipidemia type: Other hyperlipidemia (4) HTN (hypertension) Code(s): I10 - ESSENTIAL (PRIMARY) HYPERTENSION Status: Chronic Qualifiers: Hypertension type: essential hypertension Qualified Code(s): I10 - Essential (primary) hypertension (5) Hypothyroidism Code(s): E03.9 - HYPOTHYROIDISM, UNSPECIFIED Status: Chronic (6) Pseudoseizures Code(s): F44.5 - CONVERSION DISORDER WITH SEIZURES OR CONVULSIONS Status: Resolved - Plan Plan: 57 yo F with h/o of SCZ Disorder with psychotic features admitted for AMS 2/2 acute psychosis. Going to [facility] today. AMS - below nml baseline (able to perform ADLs) per [facility] rep who has seen her in past - improved with d/c of Geodon - continue to re-orient, monitor Schizoaff. disorder with hallucinations - accepted to [facility]. WIll go today - continue trazodone, seroquel, ativan DM2 -POC stable on metformin -SS, prn Elevated troponins, resolved -likely 2/2 to seizures activity Hypotension -vitally stable, continue monitoring HLD -continue pravastatin HTN -BPs stable, continue home lisinopril; BPs 120s/68 Hypothyroidism -Continue synthroid H/o of pseudoseizures -Continue home trileptal, keppra DISPO: Patient will go to [facility] today. Ready for discharge. CODE: FULL Case discussed w/ Mansi <Karine Boyd - Last Filed: 06/18/18 09:17> Attending Addendum - Attending Addendum Date/Time: 06/18/18 9302 I personally evaluated the patient and discussed the management with Dr. Boyd. I agree with the History, Examination, Assessment and Plan documented above with any addition or exceptions noted below. Patient medically stable. Awaiting [facility] placement. <José Manuel Cohn - Last Filed: 06/18/18 12:48>
[2018-06-18 07:32] VITALS: TEMP 97.7
[2018-06-18] MEDS: metFORMIN 500 MG TAB PO SCH (08:25)
[2018-06-18] MEDS: levETIRAcetam 500 MG TAB PO SCH (08:25)
[2018-06-18] MEDS: Lorazepam 0.5 MG TAB PO SCH (08:26)
[2018-06-18] MEDS: OXcarbazepine 150 MG TAB PO SCH (08:26)
[2018-06-18] MEDS: Lisinopril 10 MG TAB PO SCH (08:27)
[2018-06-18] MEDS: Enoxaparin Sodium 40 MG/0.4 ML SYRINGE SC SCH (08:28)
[2018-06-18 11:51] VITALS: BMI 33.7
[2018-06-18 12:53] VITALS: BP 124/69
--- NOTE | 2018-06-19 11:27 | DIS-2 ---
DATE OF ADMISSION: 06/10/2018 DATE OF DISCHARGE: 06/18/2018 RESIDENT: Karine Boyd M.D. ADMITTING ATTENDING: Bessie Muse M.D. DISCHARGE ATTENDING: José Manuel Cohn M.D. CONSULTATIONS: [facility]. PROCEDURES: 1. Brain CT on 06/09/2018 showed no acute intracranial abnormality. 2. Cervical spine CT on 06/09/2018 showed no evidence of fracture. 3. Chest x-ray on 06/09/2018, no acute cardiopulmonary findings. 4. Chest x-ray on 06/10/2018, no acute cardiopulmonary findings. PRIMARY DIAGNOSIS: Schizoaffective disorder. SECONDARY DIAGNOSES: Diabetes, type 2; hyperlipidemia; hypertension; hypothyroidism; and pseudoseizures. DISCHARGE MEDICATIONS: 1. Metformin (Glucophage) 1000 mg oral twice daily with meals. 2. Levetiracetam (Keppra) 2 tabs oral twice daily. 3. Pravastatin sodium (Pravachol) 40 mg oral at bedtime. 4. Lisinopril 10 mg oral daily. 5. Lorazepam 1 tab ophthalmic twice daily. 6. Quetiapine fumarate (Seroquel) 300 mg oral at bedtime. 7. Oxcarbazepine (Trileptal) 150 mg oral twice daily. 8. Trazodone HCL 150 mg oral at bedtime. DISCONTINUED MEDICATIONS: None. HISTORY OF PRESENT ILLNESS AND HOSPITAL COURSE: This is a 57-year-old female, who was reported to be found by police, walking the streets, wearing only a shirt and had altered mental status. CT head, cervical spine and chest x-ray were all normal. UA was negative. Alcohol was negative. UDS was negative except for benzos. Electrolytes and CBC were within normal limits. The supervisor case loading saw the patient and reported that she was acting below her baseline. The patient was then placed an [facility] waiting list. She has had several psychotic episodes and has shown unsafe behavior within the community. On 06/09/2018 around 2100 hours, she was noted to have recovered from a seizure of unknown duration and back to her current mental baseline. She was previously evaluated by Neurology last year with diagnosis of pseudoseizures. On 06/10/2018, she had a blood pressure of systolics around 80. Her blood pressure recovered to within the normal range by the end of her stay. Her troponins were also found to be elevated and she was admitted to telemetry. She had no symptoms. The patient is A&O x3 that goes into unusual tangents unrelated to questions. She has maintained this mental state throughout her stay. DISPOSITION: Stable. DISCHARGE INSTRUCTIONS: 1. Location: [facility] Facility. 2. Diet: Should be renal. 3. Activity: Ad jaswant. 4. Followup: Follow up will be at [facility]. SANTINO
== END 2018-06-18 14:44 ==
LOC: ERS 08:14 → INTOOBSV 06-10 07:03 → 2NO 06-10 07:03 → T4-A 06-12 12:17
PROVIDERS: ADMIT Hospitalist; ATTEND Family Medicine
DX: F23 Brief psychotic disorder (principal); F25.9 Schizoaffective disorder, unspecified; F44.5 Conversion disorder with seizures or convulsions; F31.9 Bipolar disorder, unspecified; E78.5 Hyperlipidemia, unspecified; E11.9 Type 2 diabetes mellitus without complications; E03.9 Hypothyroidism, unspecified; J45.909 Unspecified asthma, uncomplicated; R74.8 Abnormal levels of other serum enzymes; I95.0 Idiopathic hypotension; E66.9 Obesity, unspecified; Z68.33 Body mass index [BMI] 33.0-33.9, adult; Z79.84 Long term (current) use of oral hypoglycemic drugs; Z79.899 Other long term (current) drug therapy; Z88.8 Allergy status to other drugs, medicaments and biological substances
CPT/HCPCS: 51701; 70450; 71045 ×2; 72125; 80053; 80177; 80306; 80307; 81003; 82550; 82962 ×10; 83605; 83735; 84439; 84481; 84484 ×2; 85025; 93005; 96360; 96361; 96372 ×8; 99285; G0378 ×4; 36415; 36416; 84443; A4216; A4353; J1650

== ENCOUNTER 2018-07-29 19:34 | Emergency (ER) | payer MEDICARE, MEDICAID | END 2018-07-29 20:08 | disposition home or self-care (01) | LOC: ERS 19:34 | DX: F41.9 Anxiety disorder, unspecified (principal); E78.5 Hyperlipidemia, unspecified; I10 Essential (primary) hypertension; E11.9 Type 2 diabetes mellitus without complications; E03.9 Hypothyroidism, unspecified; J45.909 Unspecified asthma, uncomplicated; F31.9 Bipolar disorder, unspecified; Z79.899 Other long term (current) drug therapy; Z79.84 Long term (current) use of oral hypoglycemic drugs | CPT/HCPCS: 99284 ==

== ENCOUNTER 2018-08-15 07:03 | Emergency (ER) | payer MEDICARE, MEDICAID ==
[2018-08-15 08:06] LABS: #Lymphocytes 2.1 thou/uL (1.20-3.40); #Monocytes 0.8 thou/uL (0.11-0.59); #Neutrophils 6.8 thou/uL (1.40-6.50); %Basophils 0.2 % (0.0-1.0); %Eosinophils 0.4 % (0.0-10.0); %Lymphocytes 21.8 % (21.0-51.0); %Monocytes 7.7 % (0.0-10.0); %Neutrophils 69.9 % (42.0-75.0); Hemoglobin 15.5 g/dL (12.0-16.0); Mean Corpuscular HGB CONC 32.8 g/dL (32.0-36.0); Mean Corpuscular Hemoglobin 29.6 pg (27.0-31.0); Mean Corpuscular Volume 90.4 fL (78.0-98.0); Mean Platelet Volume 6.9 fL (7.4-10.4); Platelet Count 200 thou/uL (130-400); RBC Distribution Width 12.1 % (11.5-14.5); Red Blood Cell (RBC) Count 5.22 mill/uL (4.20-5.40); White Blood Cell (WBC) Count 9.7 thou/uL (4.8-10.8)
[2018-08-15 08:24] LABS: ALT (SGPT) 23 U/L (8-55); AST (SGOT) 23 U/L (5-34); Acetaminophen Less than 6.0 mcg/mL (10.0-30.0); Albumin 4.4 g/dL (3.5-5.0); Alcohol Less than 10 mg/dL (Less than 10); Alkaline Phosphatase 82 U/L (40-150); Anion Gap 19 mmol/L (10-20); BUN (Urea Nitrogen) 12 mg/dL (9.8-20.1); Bilirubin, Total 0.8 mg/dL (0.2-1.2); CK (CPK) 69 U/L (29-168); Calc. Creatinine Clearance 0 mL/min (70-130); Calcium 11.3 mg/dL (7.8-10.44); Carbon Dioxide 26 mmol/L (22-29); Chloride 96 mmol/L (98-107); Estimated GFR-MDRD 70; Globulin 3.9 g/dL (2.4-3.5); Glucose 84 mg/dL (70-105); Potassium 3.8 mmol/L (3.5-5.1); Protein, Total 8.3 g/dL (6.0-8.3); Salicylate Less than 8.0 mg/dL (15.0-30.0); Sodium 137 mmol/L (136-145)
[2018-08-15 09:16] LABS: Bilirubin Moderate (Negative); Blood, Urine Negative (Negative); Clarity CLEAR (Clear); Glucose, Urine (Dipstick) Negative (Negative); Leukocyte Negative (Negative); Nitrite Negative (Negative); Protein, Urine (Dipstick) 30 mg/dL (Neg-Trace); Specific Gravity, Urine 1.025 (1.002-1.036); Urobilinogen 0.2 mg/dL (0.2-1.0)
[2018-08-15 09:23] LABS: Pathc Cast-AUWi Flag 5.96 (0-2.49)
[2018-08-15 09:24] LABS: Pregnancy Test - Urine (BHCG) Negative (Negative); Pregu Control Background? CLEAR/WHITE (CLR/WHITE); Pregu Control Bar Appear? YES (CONTROL BAR); Specific Gravity 1.025 (1.002-1.036)
[2018-08-15 09:35] LABS: Amphetamine Not Detected (NotDetected); Barbiturates Screen Not Detected (NotDetected); Benzodiazepine Screen Not Detected (NotDetected); Cocaine Metabolite Screen Not Detected (NotDetected); Medtox Control Line Valid? VALID (VALID); Medtox Reader # READER 1; Methadone Not Detected (NotDetected); Methamphetamine Not Detected (NotDetected); Opiate Screen Not Detected (NotDetected); Oxycodone Screen Not Detected (NotDetected); Phencyclidine (PCP) Not Detected (NotDetected); THC/Cannabinoid Screen Not Detected (NotDetected); Tricyclic Screen Detected (NotDetected)
[2018-08-15 09:39] LABS: Bacteria/HPF Rare-Few HPF (None Seen); RBC/HPF 0-3 HPF (0-3); Yeast-All Forms None Seen HPF (None Seen)
[2018-08-15] MEDS ORDERED: OLANZapine 5 MG TAB PO SCH (12:00)
[2018-08-15] MEDS ORDERED: levETIRAcetam 500 MG TAB PO SCH (20:00)
[2018-08-15] MEDS ORDERED: metFORMIN 500 MG TAB PO SCH (20:00)
[2018-08-15] MEDS ORDERED: Pravastatin Sodium 40 MG TAB PO SCH (20:00)
[2018-08-16] MEDS ORDERED: Lisinopril 20 MG TAB PO SCH (08:00)
[2018-08-16] MEDS ORDERED: Levothyroxine Sodium 100 MCG TAB PO SCH (08:00)
--- NOTE | 2018-08-16 08:47 | EKG ---
Test Reason : Blood Pressure : / mmHG Vent. Rate : 099 BPM Atrial Rate : 099 BPM P-R Int : 136 ms QRS Dur : 078 ms QT Int : 322 ms P-R-T Axes : 033 044 -70 degrees QTc Int : 413 ms Normal sinus rhythm Nonspecific ST and T wave abnormality Abnormal ECG Confirmed by KELLY SARMIENTO ([id number]) on 08/16/2018 8:47:24 AM Referred By: Confirmed By:KELLY SARMIENTO
[2018-08-16] MEDS ORDERED: levETIRAcetam 500 MG TAB PO SCH (20:00)
[2018-08-16] MEDS ORDERED: metFORMIN 500 MG TAB PO SCH (21:00)
[2018-08-16] MEDS ORDERED: traZODone HCl 50 MG TAB ONE (23:27)
[2018-08-17 18:27] LABS: Lavender RECEIVED; Red RECEIVED
[2018-08-17 18:29] LABS: #Eosinphils 0.1 thou/uL (0.0-0.7); #Lymphocytes 1.2 thou/uL (1.20-3.40); #Monocytes 0.6 thou/uL (0.11-0.59); #Neutrophils 5.7 thou/uL (1.40-6.50); %Basophils 0.4 % (0.0-1.0); %Lymphocytes 15.5 % (21.0-51.0); %Monocytes 7.8 % (0.0-10.0); %Neutrophils 75.4 % (42.0-75.0); Mean Corpuscular Hemoglobin 30.1 pg (27.0-31.0); Mean Corpuscular Volume 91.3 fL (78.0-98.0); Mean Platelet Volume 7.5 fL (7.4-10.4); Platelet Count 180 thou/uL (130-400); RBC Distribution Width 12.3 % (11.5-14.5); Red Blood Cell (RBC) Count 4.67 mill/uL (4.20-5.40); White Blood Cell (WBC) Count 7.6 thou/uL (4.8-10.8)
[2018-08-17 18:53] LABS: ALT (SGPT) 50 U/L (8-55); AST (SGOT) 53 U/L (5-34); Albumin 4.1 g/dL (3.5-5.0); Alkaline Phosphatase 80 U/L (40-150); Anion Gap 15 mmol/L (10-20); BUN (Urea Nitrogen) 22 mg/dL (9.8-20.1); Bilirubin, Total 0.2 mg/dL (0.2-1.2); Calc. Creatinine Clearance 0 mL/min (70-130); Calcium 10.3 mg/dL (7.8-10.44); Carbon Dioxide 30 mmol/L (22-29); Chloride 97 mmol/L (98-107); Estimated GFR-MDRD 68; Globulin 3.6 g/dL (2.4-3.5); Glucose 127 mg/dL (70-105); Potassium 3.9 mmol/L (3.5-5.1); Protein, Total 7.7 g/dL (6.0-8.3); Sodium 138 mmol/L (136-145)
[2018-08-20] MEDS ORDERED: traZODone HCl 150 MG TAB PO SCH (21:00)
[2018-08-20] MEDS ORDERED: Divalproex Sodium DR 500 MG TAB PO SCH (21:00)
[2018-08-20] MEDS ORDERED: OLANZapine 5 MG TAB PO SCH (21:00)
[2018-08-22] MEDS ORDERED: Lisinopril 10 MG TAB PO SCH (08:00)
[2018-08-22] MEDS ORDERED: Divalproex Sodium DR 500 MG TAB PO SCH (09:00)
[2018-08-22] MEDS ORDERED: OLANZapine 5 MG TAB PO SCH (09:00)
[2018-08-23] MEDS ORDERED: metFORMIN 500 MG TAB PO SCH (20:00)
[2018-09-01 00:18] LABS: #Basophils 0.1 thou/uL (0.0-0.2); #Lymphocytes 3.3 thou/uL (1.20-3.40); #Monocytes 0.4 thou/uL (0.11-0.59); #Neutrophils 3.2 thou/uL (1.40-6.50); %Basophils 0.8 % (0.0-1.0); %Eosinophils 0.3 % (0.0-10.0); %Lymphocytes 47.6 % (21.0-51.0); %Monocytes 5.4 % (0.0-10.0); Hemoglobin 12.5 g/dL (12.0-16.0); Mean Corpuscular HGB CONC 30.9 g/dL (32.0-36.0); Mean Corpuscular Volume 90.7 fL (78.0-98.0); Mean Platelet Volume 7.5 fL (7.4-10.4); Platelet Count 229 thou/uL (130-400); Red Blood Cell (RBC) Count 4.46 mill/uL (4.20-5.40)
[2018-09-01 00:31] LABS: ALT (SGPT) 17 U/L (8-55); AST (SGOT) 15 U/L (5-34); Albumin 3.6 g/dL (3.5-5.0); Alkaline Phosphatase 62 U/L (40-150); Anion Gap 10 mmol/L (10-20); BUN (Urea Nitrogen) 15 mg/dL (9.8-20.1); Bilirubin, Total 0.2 mg/dL (0.2-1.2); Calc. Creatinine Clearance 0 mL/min (70-130); Calcium 9.7 mg/dL (7.8-10.44); Carbon Dioxide 30 mmol/L (22-29); Chloride 104 mmol/L (98-107); Estimated GFR-MDRD Greater than 90; Globulin 2.9 g/dL (2.4-3.5); Glucose 95 mg/dL (70-105); Potassium 4.1 mmol/L (3.5-5.1); Protein, Total 6.5 g/dL (6.0-8.3); Sodium 140 mmol/L (136-145)
== END 2018-09-01 11:17 ==
LOC: ERS 07:03
DX: T45.0X2A Poisoning by antiallergic and antiemetic drugs, intentional self-harm, initial encounter (principal); F32.9 Major depressive disorder, single episode, unspecified; I10 Essential (primary) hypertension; E03.9 Hypothyroidism, unspecified; E66.9 Obesity, unspecified; G40.909 Epilepsy, unspecified, not intractable, without status epilepticus; J45.909 Unspecified asthma, uncomplicated; E11.9 Type 2 diabetes mellitus without complications; F41.9 Anxiety disorder, unspecified; F25.9 Schizoaffective disorder, unspecified; F60.9 Personality disorder, unspecified; Z79.84 Long term (current) use of oral hypoglycemic drugs; Z79.899 Other long term (current) drug therapy
CPT/HCPCS: 36415; 36416; 80053; 80306; 80307; 81003; 81015; 81025; 82550; 84443; 85025; 93005; 94760; 96372; 96374

== ENCOUNTER 2018-09-16 04:26 | Emergency (ER) | payer MEDICARE, MEDICAID ==
[2018-09-16 05:19] LABS: #Basophils 0.1 thou/uL (0.0-0.2); #Eosinphils 0.2 thou/uL (0.0-0.7); #Lymphocytes 3.2 thou/uL (1.20-3.40); #Monocytes 0.9 thou/uL (0.11-0.59); #Neutrophils 4.3 thou/uL (1.40-6.50); %Basophils 1.1 % (0.0-1.0); %Lymphocytes 37.3 % (21.0-51.0); %Monocytes 10.5 % (0.0-10.0); %Neutrophils 49.3 % (42.0-75.0); Hemoglobin 13.3 g/dL (12.0-16.0); Mean Corpuscular Hemoglobin 29.7 pg (27.0-31.0); Mean Corpuscular Volume 90.1 fL (78.0-98.0); Mean Platelet Volume 7.4 fL (7.4-10.4); Platelet Count 161 thou/uL (130-400); RBC Distribution Width 12.4 % (11.5-14.5); Red Blood Cell (RBC) Count 4.47 mill/uL (4.20-5.40); White Blood Cell (WBC) Count 8.7 thou/uL (4.8-10.8)
[2018-09-16 05:40] LABS: Anion Gap 20 mmol/L (10-20); BUN (Urea Nitrogen) 12 mg/dL (9.8-20.1); Calc. Creatinine Clearance 0 mL/min (70-130); Calcium 10.2 mg/dL (7.8-10.44); Carbon Dioxide 21 mmol/L (22-29); Chloride 100 mmol/L (98-107); Estimated GFR-MDRD 84; Glucose 164 mg/dL (70-105); Potassium 3.8 mmol/L (3.5-5.1); Sodium 137 mmol/L (136-145)
[2018-09-16 05:43] LABS: ALT (SGPT) 15 U/L (8-55); AST (SGOT) 27 U/L (5-34); Acetaminophen Less than 6.0 mcg/mL (10.0-30.0); Alcohol Less than 10 mg/dL (Less than 10); Alkaline Phosphatase 68 U/L (40-150); Anion Gap 21 mmol/L (10-20); BUN (Urea Nitrogen) 13 mg/dL (9.8-20.1); Bilirubin, Total 0.3 mg/dL (0.2-1.2); CK (CPK) 432 U/L (29-168); Calc. Creatinine Clearance 0 mL/min (70-130); Calcium 10.5 mg/dL (7.8-10.44); Carbon Dioxide 20 mmol/L (22-29); Chloride 101 mmol/L (98-107); Estimated GFR-MDRD 80; Globulin 3.8 g/dL (2.4-3.5); Glucose 167 mg/dL (70-105); Potassium 3.9 mmol/L (3.5-5.1); Protein, Total 7.8 g/dL (6.0-8.3); Salicylate Less than 8.0 mg/dL (15.0-30.0); Sodium 138 mmol/L (136-145)
[2018-09-16] MEDS ORDERED: Acetaminophen 500 MG TAB ONE (06:22)
[2018-09-16 08:41] LABS: Bilirubin Negative (Negative); Blood, Urine Negative (Negative); Clarity CLEAR (Clear); Glucose, Urine (Dipstick) 250 mg/dL (Negative); Leukocyte Small (Negative); Nitrite Negative (Negative); Protein, Urine (Dipstick) Negative (Neg-Trace); Specific Gravity, Urine 1.024 (1.002-1.036); Urobilinogen 0.2 mg/dL (0.2-1.0)
[2018-09-16 08:44] LABS: Bacteria/HPF None Seen HPF (None Seen); Hyaline Casts/LPF 0-3 HYALINE CAST LPF (0-3 Hyaline); Pathc Cast-AUWi Flag 0.43 (0-2.49); RBC/HPF 0-3 HPF (0-3)
[2018-09-16 08:52] LABS: Pregnancy Test - Urine (BHCG) Negative (Negative); Pregu Control Background? CLEAR/WHITE (CLR/WHITE); Pregu Control Bar Appear? YES (CONTROL BAR); Specific Gravity 1.024 (1.002-1.036)
[2018-09-16 09:00] LABS: Amphetamine Not Detected (NotDetected); Barbiturates Screen Not Detected (NotDetected); Benzodiazepine Screen Not Detected (NotDetected); Cocaine Metabolite Screen Not Detected (NotDetected); Medtox Control Line Valid? VALID (VALID); Medtox Reader # READER 1; Methadone Not Detected (NotDetected); Methamphetamine Not Detected (NotDetected); Opiate Screen Not Detected (NotDetected); Oxycodone Screen Not Detected (NotDetected); Phencyclidine (PCP) Not Detected (NotDetected); THC/Cannabinoid Screen Not Detected (NotDetected); Tricyclic Screen Not Detected (NotDetected)
[2018-09-16] MEDS ORDERED: Lisinopril 10 MG TAB PO SCH (09:00)
[2018-09-16] MEDS ORDERED: levETIRAcetam 500 MG TAB PO SCH (09:00)
[2018-09-16] MEDS ORDERED: metFORMIN 500 MG TAB PO SCH (09:00)
[2018-09-16] MEDS ORDERED: Divalproex Sodium DR 500 MG TAB PO SCH (21:00)
[2018-09-16] MEDS ORDERED: Atorvastatin Calcium 10 MG TAB PO SCH (21:00)
[2018-09-16] MEDS ORDERED: OLANZapine 5 MG TAB PO SCH (21:00)
[2018-09-16] MEDS ORDERED: traZODone HCl 150 MG TAB PO SCH (21:00)
[2018-09-17] MEDS ORDERED: Levothyroxine Sodium 100 MCG TAB PO SCH (06:00)
== END 2018-09-16 14:48 ==
LOC: ERS 04:26
DX: F30.9 Manic episode, unspecified (principal); I10 Essential (primary) hypertension; E66.9 Obesity, unspecified; E11.9 Type 2 diabetes mellitus without complications; E03.9 Hypothyroidism, unspecified; G40.909 Epilepsy, unspecified, not intractable, without status epilepticus; J45.909 Unspecified asthma, uncomplicated; F41.9 Anxiety disorder, unspecified; F25.9 Schizoaffective disorder, unspecified; F60.9 Personality disorder, unspecified; Z79.84 Long term (current) use of oral hypoglycemic drugs; Z79.899 Other long term (current) drug therapy
CPT/HCPCS: 36415; 80048; 80306; 80307; 81003; 81015; 81025; 82550; 84443; 85025; 93005

== ENCOUNTER 2018-10-04 20:38 | Emergency (ER) | payer MEDICARE, MEDICAID ==
[2018-10-04 21:31] LABS: Anion Gap 16 mmol/L (10-20); BUN (Urea Nitrogen) 12 mg/dL (9.8-20.1); CK (CPK) 795 U/L (29-168); Calc. Creatinine Clearance 0 mL/min (70-130); Calcium 9.9 mg/dL (7.8-10.44); Carbon Dioxide 23 mmol/L (22-29); Chloride 103 mmol/L (98-107); Estimated GFR-MDRD 76; Glucose 226 mg/dL (70-105); Potassium 4.3 mmol/L (3.5-5.1); Sodium 138 mmol/L (136-145)
== END 2018-10-04 21:48 | disposition home or self-care (01) ==
LOC: ERS 20:38
DX: R51 Headache (principal); M79.10 Myalgia, unspecified site; E78.5 Hyperlipidemia, unspecified; I10 Essential (primary) hypertension; E66.9 Obesity, unspecified; E11.9 Type 2 diabetes mellitus without complications; E03.9 Hypothyroidism, unspecified; G40.909 Epilepsy, unspecified, not intractable, without status epilepticus; J45.909 Unspecified asthma, uncomplicated; F41.9 Anxiety disorder, unspecified; F31.9 Bipolar disorder, unspecified; F25.9 Schizoaffective disorder, unspecified; Z79.84 Long term (current) use of oral hypoglycemic drugs; Z79.899 Other long term (current) drug therapy
CPT/HCPCS: 80048; 82550; 99284

== ENCOUNTER 2018-10-25 09:50 | Emergency (ER) | payer MEDICARE, MEDICAID ==
[2018-10-25 10:38] LABS: Bilirubin Negative (Negative); Blood, Urine Negative (Negative); Glucose, Urine (Dipstick) Negative (Negative); Leukocyte Negative (Negative); Nitrite Negative (Negative); Protein, Urine (Dipstick) Negative (Neg-Trace); Urobilinogen 0.2 mg/dL (0.2-1.0)
[2018-10-25 10:40] LABS: #Eosinphils 0.1 thou/uL (0.0-0.7); #Lymphocytes 2.2 thou/uL (1.20-3.40); #Monocytes 0.4 thou/uL (0.11-0.59); #Neutrophils 4.6 thou/uL (1.40-6.50); %Basophils 0.2 % (0.0-1.0); %Eosinophils 0.8 % (0.0-10.0); %Lymphocytes 30.2 % (21.0-51.0); %Monocytes 4.9 % (0.0-10.0); %Neutrophils 63.9 % (42.0-75.0); Hemoglobin 13.9 g/dL (12.0-16.0); Mean Corpuscular HGB CONC 33.1 g/dL (32.0-36.0); Mean Corpuscular Volume 90.5 fL (78.0-98.0); Mean Platelet Volume 6.4 fL (7.4-10.4); Platelet Count 192 thou/uL (130-400); RBC Distribution Width 12.4 % (11.5-14.5); Red Blood Cell (RBC) Count 4.64 mill/uL (4.20-5.40); White Blood Cell (WBC) Count 7.1 thou/uL (4.8-10.8)
[2018-10-25 10:40] LABS: Clarity Clear (Clear)
[2018-10-25 10:41] LABS: Specific Gravity, Urine 1.028 (1.002-1.036)
[2018-10-25 10:42] LABS: Amphetamine Not Detected (NotDetected); Barbiturates Screen Not Detected (NotDetected); Benzodiazepine Screen Not Detected (NotDetected); Cocaine Metabolite Screen Not Detected (NotDetected); Medtox Control Line Valid? VALID (VALID); Medtox Reader # READER 1; Methadone Not Detected (NotDetected); Methamphetamine Not Detected (NotDetected); Opiate Screen Not Detected (NotDetected); Oxycodone Screen Not Detected (NotDetected); Phencyclidine (PCP) Not Detected (NotDetected); THC/Cannabinoid Screen Not Detected (NotDetected); Tricyclic Screen Not Detected (NotDetected)
[2018-10-25 10:59] LABS: ALT (SGPT) 13 U/L (8-55); AST (SGOT) 17 U/L (5-34); Albumin 3.9 g/dL (3.5-5.0); Alcohol Less than 10 mg/dL (Less than 10); Alkaline Phosphatase 81 U/L (40-150); Anion Gap 16 mmol/L (10-20); BUN (Urea Nitrogen) 14 mg/dL (9.8-20.1); Bilirubin, Total 0.3 mg/dL (0.2-1.2); Calc. Creatinine Clearance 0 mL/min (70-130); Calcium 10.2 mg/dL (7.8-10.44); Carbon Dioxide 25 mmol/L (22-29); Chloride 103 mmol/L (98-107); Estimated GFR-MDRD 88; Globulin 3.7 g/dL (2.4-3.5); Glucose 131 mg/dL (70-105); Potassium 3.7 mmol/L (3.5-5.1); Protein, Total 7.6 g/dL (6.0-8.3); Sodium 140 mmol/L (136-145)
== END 2018-10-25 14:25 | disposition home or self-care (01) ==
LOC: ERS 09:50
DX: F32.9 Major depressive disorder, single episode, unspecified (principal); E78.5 Hyperlipidemia, unspecified; E11.9 Type 2 diabetes mellitus without complications; E03.9 Hypothyroidism, unspecified; G40.909 Epilepsy, unspecified, not intractable, without status epilepticus; J45.909 Unspecified asthma, uncomplicated; F41.9 Anxiety disorder, unspecified; F20.9 Schizophrenia, unspecified; F60.9 Personality disorder, unspecified; Z79.84 Long term (current) use of oral hypoglycemic drugs; Z79.899 Other long term (current) drug therapy
CPT/HCPCS: 36415; 80053; 80306; 80307; 81003; 84443; 85025; 93005

== ENCOUNTER 2018-12-10 11:43 | Emergency (ER) | payer MEDICARE, MEDICAID ==
[2018-12-10] MEDS ORDERED: Lidocaine 1% w/Epinephrine 1:100K 20 ML VIAL ONE (11:52)
[2018-12-10] MEDS ORDERED: Adacel (T-DAP) 0.5 ML SYRINGE ONE (11:59)
== END 2018-12-10 13:14 | disposition home or self-care (01) ==
LOC: ERS 11:43
DX: S01.01XA Laceration without foreign body of scalp, initial encounter (principal); E11.9 Type 2 diabetes mellitus without complications; E78.5 Hyperlipidemia, unspecified; I10 Essential (primary) hypertension; E66.9 Obesity, unspecified; E03.9 Hypothyroidism, unspecified; G40.909 Epilepsy, unspecified, not intractable, without status epilepticus; J45.909 Unspecified asthma, uncomplicated; F41.9 Anxiety disorder, unspecified; F20.9 Schizophrenia, unspecified; F31.9 Bipolar disorder, unspecified; Z79.84 Long term (current) use of oral hypoglycemic drugs; Z79.899 Other long term (current) drug therapy; W19.XXXA Unspecified fall, initial encounter
CPT/HCPCS: 12002; 90471; 90715; J2001

== ENCOUNTER 2019-01-20 08:50 | Outpatient (CLI) | payer MEDICARE, MEDICAID ==
--- NOTE | 2019-01-20 15:15 | NM ---
[facility] SPECT: 01/20/2019 HISTORY: 58-year-old female with parkinsonism. TECHNIQUE: Premedication with 130 mg potassium iodide by mouth prior to injection of radiopharmaceutical. IV injection of 4.6 mCi of I-123 Ioflupane. 3 hours later, SPECT of the brain performed. FINDINGS: There is symmetrical uptake in the bilateral putamen and globus pallidus. IMPRESSION: Negative. No evidence of parkinsonism.
== END 2019-01-20 08:51 | disposition home or self-care (01) ==
LOC: NM 08:50
PROVIDERS: ATTEND Psychiatry & Neurology Neurology
DX: G20 Parkinson's disease (principal)
CPT/HCPCS: 78607; A9584

== ENCOUNTER 2019-03-02 15:53 | Emergency (ER) | payer MEDICARE, MEDICAID ==
--- NOTE | 2019-03-02 16:32 | CT ---
CT head noncontrast HISTORY: Head injury. COMPARISON: 06/09/2018. FINDINGS: There is no evidence of acute intracranial hemorrhage or infarct. The ventricles appear nor mal in size, shape and position. There is no mass effect or shift of midline structures. Visualized paranasal sinuses remain well-aerated. IMPRESSION: No acute intracranial abnormalities are demonstrated.
[2019-03-02 17:06] LABS: #Eosinphils 0.1 thou/uL (0.0-0.7); #Lymphocytes 1.8 thou/uL (1.20-3.40); #Monocytes 0.4 thou/uL (0.11-0.59); #Neutrophils 4.4 thou/uL (1.40-6.50); %Basophils 0.4 % (0.0-1.0); %Eosinophils 0.8 % (0.0-10.0); %Monocytes 6.5 % (0.0-10.0); %Neutrophils 65.4 % (42.0-75.0); Hemoglobin 13.4 g/dL (12.0-16.0); Mean Corpuscular HGB CONC 33.2 g/dL (32.0-36.0); Mean Corpuscular Volume 93.6 fL (78.0-98.0); Mean Platelet Volume 7.7 fL (7.4-10.4); Platelet Count 199 thou/uL (130-400); RBC Distribution Width 11.7 % (11.5-14.5); Red Blood Cell (RBC) Count 4.32 mill/uL (4.20-5.40); White Blood Cell (WBC) Count 6.7 thou/uL (4.8-10.8)
[2019-03-02 17:17] LABS: Bilirubin Negative (Negative); Blood, Urine Negative (Negative); Clarity CLEAR (Clear); Glucose, Urine (Dipstick) Negative (Negative); Leukocyte Moderate (Negative); Nitrite Negative (Negative); Protein, Urine (Dipstick) Negative (Neg-Trace); Specific Gravity, Urine 1.015 (1.002-1.036); Urobilinogen 0.2 mg/dL (0.2-1.0); pH, Urine 5.5 (5.0-9.0)
[2019-03-02 17:21] LABS: Bacteria/HPF None Seen HPF (None Seen); Hyaline Casts/LPF 0-3 HYALINE CAST LPF (0-3 Hyaline); RBC/HPF 0-3 HPF (0-3); Squamous Epithelial 0-3 HPF (0-3); WBC/HPF 21-50 HPF (0-3)
[2019-03-02 17:27] LABS: ALT (SGPT) 11 U/L (8-55); AST (SGOT) 12 U/L (5-34); Albumin 4.1 g/dL (3.5-5.0); Alkaline Phosphatase 78 U/L (40-150); Anion Gap 16 mmol/L (10-20); BUN (Urea Nitrogen) 11 mg/dL (9.8-20.1); Bilirubin, Total 0.3 mg/dL (0.2-1.2); CK (CPK) 50 U/L (29-168); Calc. Creatinine Clearance 0 mL/min (70-130); Calcium 10.4 mg/dL (7.8-10.44); Carbon Dioxide 27 mmol/L (22-29); Chloride 102 mmol/L (98-107); Estimated GFR-MDRD 87; Globulin 3.2 g/dL (2.4-3.5); Glucose 96 mg/dL (70-105); Potassium 3.8 mmol/L (3.5-5.1); Protein, Total 7.3 g/dL (6.0-8.3); Sodium 141 mmol/L (136-145)
== END 2019-03-02 19:02 | disposition home or self-care (01) ==
LOC: ERS 15:53
DX: S09.90XA Unspecified injury of head, initial encounter (principal); N39.0 Urinary tract infection, site not specified; E78.5 Hyperlipidemia, unspecified; I10 Essential (primary) hypertension; E66.9 Obesity, unspecified; E11.9 Type 2 diabetes mellitus without complications; E03.9 Hypothyroidism, unspecified; G40.909 Epilepsy, unspecified, not intractable, without status epilepticus; J45.909 Unspecified asthma, uncomplicated; F41.9 Anxiety disorder, unspecified; F31.9 Bipolar disorder, unspecified; F25.9 Schizoaffective disorder, unspecified; Z79.899 Other long term (current) drug therapy; Z79.84 Long term (current) use of oral hypoglycemic drugs; W19.XXXA Unspecified fall, initial encounter
CPT/HCPCS: 36415; 70450; 80053; 80164; 80177; 81003; 81015; 82550; 85025

== ENCOUNTER 2019-08-09 19:36 | Emergency (ER) | payer OTHER, MEDICARE ==
--- NOTE | 2019-08-09 20:53 | RAD ---
XR Shoulder Rt 3 View STANDARD: 08/09/2019 8:25 PM CLINICAL INDICATION: Trauma COMPARISON: None. FINDINGS: Fracture:No fracture. Arthropathy:Mild right AC joint osteoarthritis Incidental findings:None of significance. IMPRESSION: 1. No acute osseous abnormality.
== END 2019-08-09 21:12 | disposition home or self-care (01) ==
LOC: ERS 19:36
DX: S46.912A Strain of unspecified muscle, fascia and tendon at shoulder and upper arm level, left arm, initial encounter (principal); E78.5 Hyperlipidemia, unspecified; I10 Essential (primary) hypertension; E66.9 Obesity, unspecified; E11.9 Type 2 diabetes mellitus without complications; E03.9 Hypothyroidism, unspecified; G40.909 Epilepsy, unspecified, not intractable, without status epilepticus; J45.909 Unspecified asthma, uncomplicated; F32.9 Major depressive disorder, single episode, unspecified; F25.9 Schizoaffective disorder, unspecified; F41.9 Anxiety disorder, unspecified; Z79.84 Long term (current) use of oral hypoglycemic drugs; V89.2XXA Person injured in unspecified motor-vehicle accident, traffic, initial encounter; Z79.899 Other long term (current) drug therapy

== ENCOUNTER 2019-12-01 14:13 | Emergency (ER) | payer MEDICARE ==
--- NOTE | 2019-12-01 15:50 | CT ---
CT head noncontrast HISTORY: Head injury. COMPARISON: 06/20/2019. FINDINGS: There is no evidence of acute intracranial hemorrhage or infarct. Mild diffuse cortical atr ophy is unchanged in appearance. There is no mass effect or shift of midline structures. Visualized paranasal sinuses remain well-aerated. IMPRESSION: No significant abnormalities are demonstrated.
--- NOTE | 2019-12-01 15:56 | CT ---
CT CERVICAL SPINE WITH CORONAL AND SAGITTAL REFORMATIONS AND NO IV CONTRAST: HISTORY: Injury, neck pain FINDINGS: No fracture, subluxation or facet malalignment is identified. No prevertebral soft tissue swelling is apparent. The visualized lung apices are unremarkable. There are degenerative changes at T1-2 level. IMPRESSION: No CT evidence for fracture or traumatic subluxation.
--- NOTE | 2019-12-01 15:57 | CT ---
CT face noncontrast HISTORY: Injury. FINDINGS: The mandible, globes, and zygomatic arches are intact. Visualized paranasal sinuses are wel l aerated. Frontal sinuses are very hypoplastic. Extensive dental caries. Prominent degenerative changes of the temporomandibular joints. IMPRESSION: No acute traumatic injury is demonstrated.
--- NOTE | 2019-12-01 16:07 | RAD ---
Exam:3 views left shoulder HISTORY: Dizziness. Pain. Fall. COMPARISON: None FINDINGS: Limited evaluation the glenohumeral joint space on images provided. No fracture or dislocat ion. Note, evaluation of the greater tuberosity is limited. If there is pain or point tenderness, additional imaging is strongly recommended. IMPRESSION: Limited evaluation of the glenohumeral joint space. Limited evaluation the greater tubero sity. If there is pain or point tenderness, additional imaging is recommended.
== END 2019-12-01 17:00 | disposition home or self-care (01) ==
LOC: ERS 14:13
DX: S43.402A Unspecified sprain of left shoulder joint, initial encounter (principal); S00.531A Contusion of lip, initial encounter; I10 Essential (primary) hypertension; E78.00 Pure hypercholesterolemia, unspecified; E78.5 Hyperlipidemia, unspecified; E66.9 Obesity, unspecified; E11.9 Type 2 diabetes mellitus without complications; G40.909 Epilepsy, unspecified, not intractable, without status epilepticus; E03.9 Hypothyroidism, unspecified; F41.9 Anxiety disorder, unspecified; F31.9 Bipolar disorder, unspecified; F25.9 Schizoaffective disorder, unspecified; J45.909 Unspecified asthma, uncomplicated; Z79.899 Other long term (current) drug therapy; Z79.84 Long term (current) use of oral hypoglycemic drugs; W06.XXXA Fall from bed, initial encounter
CPT/HCPCS: 70450; 70486; 72125

== ENCOUNTER 2020-05-03 09:40 | Observation (INO) | payer MEDICARE, MEDICAID ==
[2020-05-03 10:39] LABS: #Lymphocytes 0.5 thou/uL (1.20-3.40); #Monocytes 0.4 thou/uL (0.11-0.59); #Neutrophils 8.2 thou/uL (1.40-6.50); %Basophils 0.4 % (0.0-1.0); %Eosinophils 0.5 % (0.0-10.0); %Lymphocytes 5.6 % (21.0-51.0); %Monocytes 4.6 % (0.0-10.0); Hemoglobin 12.6 g/dL (12.0-16.0); Mean Corpuscular HGB CONC 32.4 g/dL (32.0-36.0); Mean Corpuscular Hemoglobin 30.2 pg (27.0-31.0); Mean Corpuscular Volume 93.1 fL (78.0-98.0); Mean Platelet Volume 6.5 fL (7.4-10.4); Platelet Count 180 thou/uL (130-400); RBC Distribution Width 11.9 % (11.5-14.5); Red Blood Cell (RBC) Count 4.18 mill/uL (4.20-5.40); White Blood Cell (WBC) Count 9.2 thou/uL (4.8-10.8)
--- NOTE | 2020-05-03 10:43 | CT ---
CT head noncontrast HISTORY: Fall. COMPARISON: 12/01/2019. FINDINGS: There is no evidence of acute intracranial hemorrhage or infarct. Hyperdense artifact is ag ain demonstrated over the bilateral frontal gyri were hyperostosis internus is most pronounced. There is no mass effect or shift of midline structures. Visualized paranasal sinuses remain well-aera sohan. IMPRESSION : No acute intracranial abnormalities are demonstrated.
[2020-05-03 11:05] LABS: ALT (SGPT) 10 U/L (8-55); AST (SGOT) 15 U/L (5-34); Acetaminophen Less than 6.0 mcg/mL (10.0-30.0); Albumin 4.1 g/dL (3.5-5.0); Alcohol Less than 10 mg/dL (Less than 10); Alkaline Phosphatase 72 U/L (40-110); Anion Gap 19 mmol/L (10-20); BUN (Urea Nitrogen) 17 mg/dL (9.8-20.1); Bilirubin, Total 0.4 mg/dL (0.2-1.2); CK (CPK) 56 U/L (29-168); Calc. Creatinine Clearance 0 mL/min (70-130); Calcium 10.2 mg/dL (7.8-10.44); Carbon Dioxide 26 mmol/L (22-29); Chloride 102 mmol/L (98-107); Estimated GFR-MDRD 47; Globulin 3.3 g/dL (2.4-3.5); Glucose 78 mg/dL (70-105); Protein, Total 7.4 g/dL (6.0-8.3); Salicylate Less than 8.0 mg/dL (15.0-30.0); Sodium 143 mmol/L (136-145)
--- NOTE | 2020-05-03 11:14 | RAD ---
CHEST 1 VIEW PORTABLE: Date: 05/03/2020 HISTORY: Dizziness and weakness. COMPARISON: 06/20/2019. FINDINGS: Heart size is normal. The lungs are clear. IMPRESSION: No significant acute intrathoracic disease. Stable from prior study. POS: RRE
--- NOTE | 2020-05-03 14:28 | PDOC.FPRHP ---
- History of Present Illness Chief Complaint: weakness History of Present Illness: 59 yo f w/ pmhx sig for multiple psych dx and seizure She at times answers questions inappropriately but is AOx4, does not remember being in the hospital at all in the last 2 years, however she was seen a few months ago. She reports she has had progressive weakness for the past 3 months with just today feeling like her right leg was walking backwards. She denies any injury, visual disturbance, headache or seizure-like activity. she has been taking her medications as prescribed, but cannot remember them. ED Course: 1L NS cbc, cmp, tsh, cxr, ct head - Allergies/Adverse Reactions Allergies Allergy/AdvReac Type Severity Reaction Status Date / Time alprazolam [From Xanax] Allergy Unknown Verified 01/15/20 16:43 fluoxetine HCl [From Prozac] Allergy Unknown Verified 01/15/20 16:43 haloperidol [From Haldol] Allergy Unknown Verified 01/15/20 16:43 haloperidol lactate Allergy Unknown Verified 01/15/20 16:43 [From Haldol] aripiprazole [From Abilify] Allergy Verified 01/15/20 16:43 fluoxetine [From Prozac] Allergy Verified 01/15/20 16:43 paliperidone [From Invega] Allergy Verified 01/15/20 16:43 zolpidem [From Ambien] Allergy Verified 01/15/20 16:43 zolpidem tartrate Allergy Verified 01/15/20 16:43 [From Ambien] - Home Medications Medication Instructions Recorded Confirmed Type Lisinopril 10 mg PO DAILY 09/08/17 06/20/19 History Pravastatin Sodium [Pravachol] 40 mg PO HS 09/08/17 06/20/19 History levETIRAcetam [Keppra] 2 tab PO BID 09/08/17 06/20/19 History metFORMIN [Glucophage] 1,000 mg PO BID-WM 09/08/17 06/20/19 History traZODone HCl [Trazodone HCl] 150 mg PO HS 06/10/18 06/20/19 History Citalopram [CeleXA] 1 tab PO TID 06/20/19 06/20/[address] [Depakote] 1 tab PO DAILY 06/20/19 06/20/19 History Levothyroxine Sodium 100 mcg PO DAILY-AC 06/20/19 06/20/19 History OLANZapine 15 mg PO DAILY 06/20/19 06/20/19 History Valbenazine Tosylate [Ingrezza] 1 tab PO DAILY 06/20/19 06/20/19 History Cholecalciferol (Vitamin D3) 400 units PO DAILY #30 tab 06/21/19 Rx [Vitamin D3] Magnesium Chloride [Slow-Mag] 64 mg PO BID #60 tab 06/21/19 Rx - History PMHx:hypothyroid, epilepsy, anemia, hypomagnesemia, htn, DMII, HLD, multiple psych dx PSHx: none FHx: unsure Social: denies TAD - Review of Systems General: denies: fever/chills, weight/appetite/sleep changes Eyes: denies: vision changes ENT: denies: nasal congestion Respiratory: denies: cough, shortness of breath Cardiovascular: denies: chest pain, palpitation, edema Gastrointestinal: denies: nausea, vomiting, diarrhea Genitourinary: denies: incontinence, dysuria Skin: denies: rashes Musculoskeletal: denies: pain, tenderness Neurological: reports: weakness. denies: numbness - Vital signs BP: 117/86 HR: 75 RR: 16 Tmax: 98.4 Pox: 95% on RA - Physical Exam Constitutional: NAD, awake, alert and oriented HEENT: normocephalic and atraumatic, grossly normal vision, grossly normal hearing Neck: supple, trachea midline Chest: no-tender to palpation Heart: RRR, normal S1/S2 Lungs: CTAB, no respiratory distress Abdomen: soft, non-tender Musculoskeletal: normal structure, normal tone Neurological: no focal deficit, CN II-XII intact, normal sensation, DTRs 2+ Skin: no rash/lesions, good turgor Heme/Lymphatic: no unusual bruising or bleeding Psychiatric: other (flat affect) FMR H&P: Results - Labs Result Diagrams: 05/03/20 10:30 05/03/20 10:30 Lab results: WBC 9.2 thou/uL (4.8-10.8) 05/03/20 10:30 Hgb 12.6 g/dL (12.0-16.0) 05/03/20 10:30 Hct 39.0 % (36.0-47.0) 05/03/20 10:30 MCV 93.1 fL (78.0-98.0) 05/03/20 10:30 Plt Count 180 thou/uL (130-400) 05/03/20 10:30 Neutrophils % 89.0 % (42.0-75.0) H 05/03/20 10:30 Sodium 143 mmol/L (136-145) 05/03/20 10:30 Potassium 4.0 mmol/L (3.5-5.1) 05/03/20 10:30 Chloride 102 mmol/L (98-107) 05/03/20 10:30 Carbon Dioxide 26 mmol/L (22-29) 05/03/20 10:30 BUN 17 mg/dL (9.8-20.1) 05/03/20 10:30 Creatinine 1.19 mg/dL (0.6-1.1) H 05/03/20 10:30 Glucose 78 mg/dL (70-105) 05/03/20 10:30 Calcium 10.2 mg/dL (7.8-10.44) 05/03/20 10:30 Total Bilirubin 0.4 mg/dL (0.2-1.2) 05/03/20 10:30 AST 15 U/L (5-34) 05/03/20 10:30 ALT 10 U/L (8-55) 05/03/20 10:30 Alkaline Phosphatase 72 U/L (40-110) 05/03/20 10:30 Creatine Kinase 56 U/L (29-168) 05/03/20 10:30 Serum Total Protein 7.4 g/dL (6.0-8.3) 05/03/20 10:30 Albumin 4.1 g/dL (3.5-5.0) 05/03/20 10:30 - EKG Interpretation EKG: rrr, no st changes FMR H&P: A/P - Problem List (1) DM2 (diabetes mellitus, type 2) Current Visit: No Status: Chronic Qualifiers: Diabetes mellitus usp insulin use: without exterminator helper use Diabetes mellitus complication status: without complication Qualified Code(s): E11.9 - Type 2 diabetes mellitus without complications Comment: diet controlled (2) Dyslipidemia Current Visit: No Status: Chronic Code(s): E78.5 - HYPERLIPIDEMIA, UNSPECIFIED (3) Epilepsy Current Visit: No Status: Chronic Code(s): G40.909 - EPILEPSY, UNSP, NOT INTRACTABLE, WITHOUT STATUS EPILEPTICUS (4) HLD (hyperlipidemia) Current Visit: No Status: Chronic Code(s): E78.5 - HYPERLIPIDEMIA, UNSPECIFIED Qualifiers: Hyperlipidemia type: Other hyperlipidemia (5) HTN (hypertension) Current Visit: No Status: Chronic Code(s): I10 - ESSENTIAL (PRIMARY) HYPERTENSION (6) Hypothyroidism Current Visit: No Status: Chronic Code(s): E03.9 - HYPOTHYROIDISM, UNSPECIFIED (7) Seizure Current Visit: No Status: Resolved Code(s): R56.9 - UNSPECIFIED CONVULSIONS - Plan TIA - hx is uncertain from pt but a definite possibility, CT wnl, symptoms have resolved upon my eval - risk stratify, asa daily, MRI pending - PT/OT/CM consulted for possible placement Generalized weakness - eval for deficiencies/infectious causes - likely deconditioning, would benefit from therapy Multiple Psychiatric Disorders: Schizoaffective DO, Bipolar Depression, and Anxiety - could be contributing to weakness, continue home meds and monitor Hypothyroidism - continue home levothyroxine. Hx of Epilepsy - continue home meds. HTN - continue home meds HLD - continue home meds DMII - continue home meds pcp: JENNIFER ppx: lovenox code: Full dispo: admit to stroke obs for further eval/work up, possible need for placement. FMR H&P: Upper Level - Plan Date/Time: 05/03/20 1147 I, [], have evaluated this patient and agree with findings/plan as outlined by internal grinder tender resident. Pertinent changes/additions are listed here. Addendum - Attending - Attending Attestation Date/Time: 05/03/20 1133 I personally evaluated the patient and discussed the management with Dr. Jones. I agree with the History, Examination, Assessment and Plan documented above with any addition or exceptions noted below.
[2020-05-03] MEDS ORDERED: Acetaminophen 650 MG/20.3 ML UDCUP PO PRN (15:45)
[2020-05-03 16:15] LABS: Bacteria/HPF None Seen HPF (None Seen); Bilirubin Negative (Negative); Blood, Urine Negative (Negative); Clarity Clear (Clear); Glucose, Urine (Dipstick) Normal (Negative); Ketone, Urine 60 mg/dL (Negative); Leukocyte 75 Leu/uL (Negative); Nitrite Negative (Negative); Protein, Urine (Dipstick) Negative (Neg-Trace); RBC/HPF 0-3 HPF (0-3); Specific Gravity, Urine 1.017 (1.002-1.036); Squamous Epithelial 0-3 HPF (0-3); Urobilinogen Normal mg/dL (Less than 2); pH, Urine 5.5 (5.0-9.0)
[2020-05-03 16:18] LABS: Amphetamine Not Detected (NotDetected); Barbiturates Screen Not Detected (NotDetected); Benzodiazepine Screen Not Detected (NotDetected); Cocaine Metabolite Screen Not Detected (NotDetected); Medtox Control Line Valid? VALID (VALID); Medtox Reader # READER 1; Methadone Not Detected (NotDetected); Methamphetamine Not Detected (NotDetected); Opiate Screen Detected (NotDetected); Oxycodone Screen Not Detected (NotDetected); Phencyclidine (PCP) Not Detected (NotDetected); THC/Cannabinoid Screen Not Detected (NotDetected); Tricyclic Screen Not Detected (NotDetected)
[2020-05-03] MEDS ORDERED: Acetaminophen 650 MG Suppository PR PRN (17:14)
[2020-05-03] MEDS ORDERED: Ondansetron ODT 4 MG TAB PO PRN (17:14)
[2020-05-03] MEDS ORDERED: Ondansetron PF 4 MG/2 ML Vial IVP PRN (17:14)
[2020-05-03 17:30] LABS: Actual Bicarbonate (HCO3a) 21.3 mEq/L (22-28); Base Excess (BEa) -2.7 mEq/L (-2.0 to +3.0); CO2 Tension 34.4 mmHg (35.0-45.0); Carboxyhemoglobin (COHb) 0.2 gm% (0.0-3.0); Hemoglobin (Hb) 12.3 g/dL (12.0-16.0); O2 Tension (PaO2), arterial 76.9 mmHg (80.0-100.0); Potassium - ABG Lab 3.67 mmol/L (3.70-5.30); pH, Arterial 7.41 (7.35-7.45)
[2020-05-03 17:31] LABS: Puncture Site LBA
[2020-05-03] MEDS: Acetaminophen 325 MG TAB PO PRN (17:39)
[2020-05-03] MEDS: Sodium Chloride 0.9% 1,000 ML IV SCH (17:40)
[2020-05-03 18:16] VITALS: BMI 31.8
[2020-05-03 20:04] LABS: Phosphorus 3.7 mg/dL (2.3-4.7)
[2020-05-03] MEDS: Atorvastatin Calcium 10 MG TAB PO SCH (20:33)
[2020-05-03] MEDS: levETIRAcetam 500 MG TAB PO SCH (20:33)
[2020-05-03] MEDS ORDERED: Melatonin 3 MG TAB PO PRN (21:13)
[2020-05-03] MEDS ORDERED: Citalopram 10 MG TAB PO SCH (21:45)
[2020-05-03] MEDS ORDERED: Divalproex Sodium DR 500 MG TAB PO SCH (21:45)
[2020-05-03] MEDS ORDERED: OLANZapine 5 MG TAB PO SCH (21:45)
[2020-05-04] MEDS: Sodium Chloride 0.9% 1,000 ML IV SCH (02:26)
[2020-05-04 05:45] LABS: Anion Gap 13 mmol/L (10-20); BUN (Urea Nitrogen) 8 mg/dL (9.8-20.1); Calc. Creatinine Clearance 114 mL/min (70-130); Calcium 9.1 mg/dL (7.8-10.44); Carbon Dioxide 25 mmol/L (22-29); Cardiac Risk 2.8 (Less than 4.5); Chloride 105 mmol/L (98-107); Cholesterol 125 mg/dl (< 200 Desired); Estimated GFR-MDRD 86; Glucose 99 mg/dL (70-105); HDL Cholesterol 45 mg/dL (>60 Neg Risk); LDL Cholesterol, Calculated 50 mg/dL; Sodium 140 mmol/L (136-145); Triglycerides 149 mg/dL (Less than 150)
--- NOTE | 2020-05-04 06:22 | PDOC.FM ---
- Subjective Subjective: Patient reports a longstanding history of lower extremity weakness described as "my legs walk backward when I try to move forward" that worsened 3 months ago. She states the weakness is worse on the right than left. Overnight, she denies headache, chest pain, SOB or edema. She says the weakness has not worsened or improved. - Objective MAR Reviewed: Yes Vital Signs & Weight: Vital Signs (12 hours) Temp Pulse Resp BP Pulse Ox 05/04/20 04:00 97.5 F L 58 L 16 123/59 L 95 05/04/20 00:27 98.4 F 73 123/61 91 L 05/03/20 21:04 98.3 F 68 136/62 95 Weight Weight 81.647 kg I&O: 05/02/20 05/03/20 05/04/20 06:59 06:59 06:59 Intake Total 540 Output Total 1400 Balance -860 Result Diagrams: 05/03/20 10:30 05/04/20 05:04 Phys Exam - Physical Examination Constitutional: NAD HEENT: moist MMs, sclera anicteric Neck: supple, full ROM Respiratory: no wheezing, clear to auscultation bilateral Cardiovascular: RRR, no significant murmur Gastrointestinal: soft, positive bowel sounds Musculoskeletal: no edema, pulses present Neurological: moves all 4 limbs Strength 5/5 upper extremities, 3/5 lower extremities bilat Lymphatic: no nodes Psychiatric: A&O x 3 Deviation from normal: Flat affect Skin: no rash, normal turgor Dx/Plan - Plan Plan: 1. Generalized weakness 2/2 TIA vs. somatic symptom disorder History is uncertain and changes when asked about timeline. WBC 9.2. Mag 1.4. pro-nicolle 0.36. Negative for salicylates, acetaminophen and ETOH. Positive for opiates. CT in the ED was WNL. Decreased strength, lower extremities bilaterally , noted on exam. DTR 2+. Due to uncertainty of symptom origin, MRI was ordered. Deconditioning is likely a contributing factor. Patient would benefit from therapy. Given patient's atypical presentation and history of psychiatric disorders, somatic symptom disorder is also a potential cause. -Brain MRI -ASA daily -Consulted PT/OT -Consulted CM for possible placement 2. Schizoaffective Disorder Patient displays a flat affect. -Continue home meds 3. Bipolar depression -Continue home meds 4. Anxiety -Continue home meds 5. Hypothyroidism TSH 0.59 in the ED. -Continue home levothyroxine. 6. Hypokalemia K decreased from 4.0 on admission to 3.0 today -K 40mEq PO -Monitor 7. Hypomagnesemia Mg 1.4 on admission. -Mag 2 IV 8. Hx of Epilepsy -Continue home meds. 9. HTN BP has remained stable. -Continue home meds 10. HLD Cholesterol 125. LDL 50. HDL 45. -Continue home meds 11. DMII -Continue home meds pcp: JENNIFER ppx: lovenox code: Full dispo: Possible placement pending MRI results and symptom progression Addendum - Attending - Attending Attestation Date/Time: 05/04/20 4311 I personally evaluated the patient and discussed the management with Dr. Lunsford. I agree with the History, Examination, Assessment and Plan documented above with any addition or exceptions noted below. Patient here for chronic weakness and deconditioning that supposedly acutely got worse in R side. MRI normal and no evidence of CVA. PT eval and dispo pending that result. She is medically stable for discharge at this time.
[2020-05-04] MEDS ORDERED: Levothyroxine Sodium 75 MCG TAB PO SCH (07:30)
[2020-05-04] MEDS ORDERED: Aspirin 81 mg Enteric Coated Tablet PO SCH (09:00)
[2020-05-04] MEDS ORDERED: Enoxaparin Sodium 40 MG/0.4 ML SYRINGE SC SCH (09:00)
[2020-05-04] MEDS ORDERED: Potassium Chloride 20 MEQ TAB PO SCH ×2 (09:00→13:30)
[2020-05-04] MEDS ORDERED: Magnesium 2 GM/50 ML 2 GM in Premix Bag 1 BAG IVPB SCH (09:00)
[2020-05-04] MEDS ORDERED: Lisinopril 10 MG TAB PO SCH (09:00)
--- NOTE | 2020-05-04 09:05 | MRI ---
Exam: Brain MRI without contrast HISTORY: Transient ischemic attack COMPARISON: 05/11/2015 FINDINGS: Calvarial marrow signal intensity: Appropriate T1 signal Gradient echo sequence: No hemorrhage Brain parenchyma: No mass, mass effect or midline shift. Brain volume, age-appropriate. Cortical garner-white matter differentiation: Preserved Restricted diffusion: Central arterial flow voids are maintained. Absent restricted diffusion White matter signal intensities:Minimal periventricular T2, FLAIR white matter hyperintensities due t o chronic small vessel ischemic changes. Stable T2 and FLAIR hyperintensity associated with a small remote lacunar infarct involving the left fields radiata Sinuses: Adequate aeration of the paranasal sinuses and mastoid air cells. IMPRESSION: Absent restricted diffusion. No acute infarct.
[2020-05-04] MEDS: levETIRAcetam 500 MG TAB PO SCH ×2 (09:19→20:13)
[2020-05-04] MEDS: Acetaminophen 325 MG TAB PO PRN (09:21)
[2020-05-04] MEDS ORDERED: Lactated Ringer's 500 ML IV SCH (12:15)
[2020-05-04] MEDS: Lactated Ringer's 500 ML IV SCH ×2 (13:26→13:30)
[2020-05-04 16:13] VITALS: TEMP 97.9
[2020-05-04] MEDS: Atorvastatin Calcium 10 MG TAB PO SCH (20:13)
[2020-05-04] MEDS ORDERED: Citalopram 10 MG TAB PO SCH (21:00)
[2020-05-04] MEDS ORDERED: Divalproex Sodium DR 500 MG TAB PO SCH (21:00)
[2020-05-04] MEDS ORDERED: OLANZapine 5 MG TAB PO SCH (21:00)
[2020-05-05 04:18] VITALS: BP 124/70
--- NOTE | 2020-05-07 20:43 | DIS ---
DATE OF ADMISSION: 05/03/2020 DATE OF DISCHARGE: 05/04/2020 RESIDENT: Maricruz Lunsford MD ADMITTING ATTENDING: José Manuel Cohn MD DISCHARGE ATTENDING: José Manuel Cohn MD CONSULTS: None. PROCEDURES: None. PRIMARY DIAGNOSES: Generalized weakness secondary to chronic deconditioning. SECONDARY DIAGNOSES: Schizoaffective disorder, bipolar, depression, anxiety, hypothyroidism, hypokalemia, hypomagnesemia, history of epilepsy, hypertension, hyperlipidemia, and type 2 diabetes. DISCHARGE MEDICATIONS: 1. Celexa 30 mg p.o. at bedtime. 2. Keppra 2 tablets of 500 mg p.o. b.i.d. 3. Levothyroxine 75 mcg p.o. daily. 4. Metformin 500 mg p.o. b.i.d. 5. Olanzapine 15 mg p.o. at bedtime. 6. Pravastatin sodium 40 mg p.o. at bedtime. 7. Trazodone 300 mg p.o. at bedtime. 8. Ingrezza 80 mg capsule, 1 tablet p.o. at bedtime. 9. Aspirin 81 mg p.o. daily. 10. Depakote 500 mg p.o. at bedtime. DISCONTINUED MEDICATIONS: Lisinopril 10 mg. HISTORY OF PRESENT ILLNESS: The patient is a 59-year-old female with a history of schizoaffective disorder, bipolar, depression, anxiety, hypothyroidism, history of epilepsy, hypertension, hyperlipidemia, and type 2 diabetes, who presented to the ED with progressive weakness for the past 3 months that worsened 1 day ago with her right leg described as walking backwards while she walks forward. The history, however, changed when asked again. The next time the patient stated her weakness has been progressive over years and worsened 3 months ago. Due to the fluctuation in history and poor memory of past hospitalization, a CT of the head in the ED was obtained. It showed nothing acute. An MRI was ordered for further investigation , which came back with no acute event observed. The patient was noted to have a magnesium level of 1.4 and was given 2 g magnesium IV. Potassium decreased from 4.0 on admission to 3.0 and the patient was given 40 mEq of potassium x2. Salicylates were negative. Acetaminophen level was negative. EtOH was less than 10. The patient was positive for opioids. On exam, the patient was noted to have decreased strength in the lower extremities bilaterally. DTR was 2+. The patient was noted to have a flat affect throughout admission. Around noon on 05/04, the patient was noted to have a low blood pressure of 68/36, likely due to lisinopril 10 mg administration in the morning. Upon further questioning, the patient stated she no longer takes lisinopril and it was discontinued. The patient was given 3 boluses of 500 lactated Ringer's, which improved blood pressure to 112/58 and remained stable afterward. The patient was evaluated by PT who recommended inpatient rehab. The patient was deemed stable for discharge to inpatient rehab. DISPOSITION: Stable to inpatient rehab. DISCHARGE INSTRUCTIONS: Location: Inpatient rehab. Diet: Diabetic. Activity: As tolerated. Followup: With PCP within 1 week of discharge from inpatient rehab. Job ID: [id number] [id number]
== END 2020-05-04 22:00 ==
LOC: ERS 09:40 → 2SE 17:01
PROVIDERS: ADMIT Student in an Organized Health Care Education/Training Program; ATTEND Student in an Organized Health Care Education/Training Program
DX: R53.1 Weakness (principal); F41.9 Anxiety disorder, unspecified; F25.9 Schizoaffective disorder, unspecified; F31.9 Bipolar disorder, unspecified; I10 Essential (primary) hypertension; E11.9 Type 2 diabetes mellitus without complications; E03.9 Hypothyroidism, unspecified; G40.909 Epilepsy, unspecified, not intractable, without status epilepticus; E87.6 Hypokalemia; E83.42 Hypomagnesemia; E78.5 Hyperlipidemia, unspecified; Z79.82 Long term (current) use of aspirin; Z79.84 Long term (current) use of oral hypoglycemic drugs; Z79.899 Other long term (current) drug therapy; Z88.8 Allergy status to other drugs, medicaments and biological substances
CPT/HCPCS: 70450; 70551; 71045; 80048; 80061; 80306; 80307; 82550; 82805; 82962 ×2; 83735; 84100; 84145; 84484; 87086; 93005; 96360; 96361; 96372; 96374; 97110; 97139 ×2; 97530; 99285; G0378 ×3; 36415; 36416; 80053; 81003; 81015; 84443; 85025; J1650; J3475

== ENCOUNTER 2022-07-19 13:53 | Emergency (ER) | payer MEDICARE, OTHER ==
[2022-07-19 15:01] LABS: #Eosinphils 0.1 thou/uL (0.0-0.7); #Lymphocytes 2.2 thou/uL (1.20-3.40); #Monocytes 0.5 thou/uL (0.11-0.59); %Basophils 0.5 % (0.0-1.0); %Eosinophils 1.4 % (0.0-10.0); %Lymphocytes 31.8 % (21.0-51.0); %Monocytes 7.2 % (0.0-10.0); %Neutrophils 59.1 % (42.0-75.0); Mean Corpuscular HGB CONC 33.1 g/dL (32.0-36.0); Mean Corpuscular Hemoglobin 31.2 pg (27.0-31.0); Mean Corpuscular Volume 94.4 fL (78.0-98.0); Mean Platelet Volume 7.1 fL (7.4-10.4); Platelet Count 176 thou/uL (130-400); RBC Distribution Width 12.4 % (11.5-14.5); Red Blood Cell (RBC) Count 4.47 mill/uL (4.20-5.40); White Blood Cell (WBC) Count 6.8 thou/uL (4.8-10.8)
[2022-07-19 15:23] LABS: Amphetamine Not Detected (NotDetected); Barbiturates Screen Not Detected (NotDetected); Benzodiazepine Screen Not Detected (NotDetected); Cocaine Metabolite Screen Not Detected (NotDetected); Methadone Not Detected (NotDetected); Methamphetamine Not Detected (NotDetected); Opiate Screen Not Detected (NotDetected); Oxycodone Screen Not Detected (NotDetected); Phencyclidine (PCP) Not Detected (NotDetected); THC/Cannabinoid Screen Not Detected (NotDetected); Tricyclic Screen Not Detected (NotDetected)
[2022-07-19 15:25] LABS: Bacteria/HPF 4+ HPF (None Seen); Bilirubin Negative (Negative); Blood, Urine Negative (Negative); Clarity Turbid (Clear); Glucose, Urine (Dipstick) Normal (Negative); Ketone, Urine 10 mg/dL (Negative); Leukocyte 500 Leu/uL (Negative); Nitrite Negative (Negative); Protein, Urine (Dipstick) Negative (Neg-Trace); RBC/HPF 0-3 HPF (0-3); Specific Gravity, Urine 1.014 (1.002-1.036); pH, Urine 5.5 (5.0-9.0)
[2022-07-19 15:29] LABS: ALT (SGPT) 14 U/L (8-55); AST (SGOT) 19 U/L (5-34); Acetaminophen Less than 10.0 mcg/mL (10.0-30.0); Albumin 4.1 g/dL (3.5-5.0); Alcohol Less than 10 mg/dL (Less than 10); Alkaline Phosphatase 70 U/L (40-110); Anion Gap 17 mmol/L (10-20); BUN (Urea Nitrogen) 12 mg/dL (9.8-20.1); Bilirubin, Total 0.4 mg/dL (0.2-1.2); CK (CPK) 145 U/L (29-168); Calc. Creatinine Clearance 0 mL/min (70-130); Calcium 10.4 mg/dL (7.8-10.44); Carbon Dioxide 26 mmol/L (22-29); Chloride 102 mmol/L (98-107); Estimated GFR 87; Globulin 3.5 g/dL (2.4-3.5); Glucose 104 mg/dL (70-105); Potassium 4.1 mmol/L (3.5-5.1); Protein, Total 7.6 g/dL (6.0-8.3); Salicylate Less than 8.0 mg/dL (15.0-30.0); Sodium 141 mmol/L (136-145)
== END 2022-07-19 20:40 | disposition home or self-care (01) ==
LOC: ERS 13:53
DX: F43.20 Adjustment disorder, unspecified (principal); E78.00 Pure hypercholesterolemia, unspecified; I10 Essential (primary) hypertension; E11.9 Type 2 diabetes mellitus without complications; E03.9 Hypothyroidism, unspecified; G40.909 Epilepsy, unspecified, not intractable, without status epilepticus; J45.909 Unspecified asthma, uncomplicated; E66.9 Obesity, unspecified; Z68.45 Body mass index [BMI] 70 or greater, adult; Z79.84 Long term (current) use of oral hypoglycemic drugs; Z79.899 Other long term (current) drug therapy
CPT/HCPCS: 36415; 80053; 80306; 80307; 81003; 81015; 82550; 84443; 85025; 93005

== ENCOUNTER 2022-08-01 19:06 | Emergency (ER) | payer MEDICARE, OTHER ==
[2022-08-01 20:01] LABS: #Eosinphils 0.1 thou/uL (0.0-0.7); #Lymphocytes 2.1 thou/uL (1.20-3.40); #Monocytes 0.6 thou/uL (0.11-0.59); #Neutrophils 3.4 thou/uL (1.40-6.50); %Basophils 0.7 % (0.0-1.0); %Monocytes 9.9 % (0.0-10.0); %Neutrophils 54.4 % (42.0-75.0); Hemoglobin 13.5 g/dL (12.0-16.0); Mean Corpuscular HGB CONC 32.2 g/dL (32.0-36.0); Mean Corpuscular Hemoglobin 30.8 pg (27.0-31.0); Mean Corpuscular Volume 95.7 fL (78.0-98.0); Mean Platelet Volume 7.2 fL (7.4-10.4); Platelet Count 154 thou/uL (130-400); RBC Distribution Width 12.4 % (11.5-14.5); Red Blood Cell (RBC) Count 4.37 mill/uL (4.20-5.40); White Blood Cell (WBC) Count 6.3 thou/uL (4.8-10.8)
[2022-08-01 20:22] LABS: ALT (SGPT) 15 U/L (8-55); AST (SGOT) 17 U/L (5-34); Albumin 4.1 g/dL (3.5-5.0); Alkaline Phosphatase 68 U/L (40-110); Anion Gap 17 mmol/L (10-20); BUN (Urea Nitrogen) 10 mg/dL (9.8-20.1); Bilirubin, Total 0.5 mg/dL (0.2-1.2); Calc. Creatinine Clearance 0 mL/min (70-130); Calcium 10.2 mg/dL (7.8-10.44); Carbon Dioxide 27 mmol/L (22-29); Chloride 100 mmol/L (98-107); Estimated GFR 86; Globulin 2.9 g/dL (2.4-3.5); Glucose 103 mg/dL (70-105); Potassium 4.6 mmol/L (3.5-5.1); Sodium 139 mmol/L (136-145)
[2022-08-01 20:23] LABS: Bilirubin Negative (Negative); Blood, Urine Negative (Negative); Clarity Clear (Clear); Glucose, Urine (Dipstick) Normal (Negative); Ketone, Urine 10 mg/dL (Negative); Leukocyte Negative Leu/uL (Negative); Nitrite Negative (Negative); Protein, Urine (Dipstick) Negative (Neg-Trace); Specific Gravity, Urine 1.008 (1.002-1.036); Urobilinogen Normal mg/dL (Less than 2)
== END 2022-08-01 21:55 ==
LOC: ERS 19:06
DX: S80.02XA Contusion of left knee, initial encounter (principal); S60.311A Abrasion of right thumb, initial encounter; R53.1 Weakness; E11.9 Type 2 diabetes mellitus without complications; W19.XXXA Unspecified fall, initial encounter; I10 Essential (primary) hypertension; E78.5 Hyperlipidemia, unspecified; G40.909 Epilepsy, unspecified, not intractable, without status epilepticus; J45.909 Unspecified asthma, uncomplicated; Z79.899 Other long term (current) drug therapy; Z79.84 Long term (current) use of oral hypoglycemic drugs
CPT/HCPCS: 36415; 36416; 51701; 80053; 80164; 81003; 85025

== ENCOUNTER 2022-12-09 21:38 | Emergency (ER) | payer OTHER, MEDICARE ==
[2022-12-09 22:44] LABS: #Basophils 0.2 thou/uL (0.0-0.2); #Eosinphils 0.1 thou/uL (0.0-0.7); #Monocytes 0.5 thou/uL (0.11-0.59); #Neutrophils 3.5 thou/uL (1.40-6.50); %Basophils 2.3 % (0.0-1.0); %Eosinophils 1.8 % (0.0-10.0); %Lymphocytes 41.3 % (21.0-51.0); %Monocytes 6.9 % (0.0-10.0); %Neutrophils 47.8 % (42.0-75.0); Hemoglobin 12.8 g/dL (12.0-16.0); Mean Corpuscular HGB CONC 34.4 g/dL (32.0-36.0); Mean Corpuscular Hemoglobin 32.8 pg (27.0-31.0); Mean Corpuscular Volume 95.5 fl (78.0-98.0); Mean Platelet Volume 7.3 fL (7.4-10.4); Platelet Count 154 10x3/uL (130-400); RBC Distribution Width 12.2 % (11.5-14.5); White Blood Cell (WBC) Count 7.3 10x3/uL (4.8-10.8)
[2022-12-09 23:05] LABS: ALT (SGPT) 10 U/L (8-55); AST (SGOT) 15 U/L (5-34); Albumin 3.8 g/dL (3.5-5.0); Alkaline Phosphatase 57 U/L (40-110); Anion Gap 13 mmol/L (10-20); BUN (Urea Nitrogen) 12 mg/dL (9.8-20.1); Bilirubin, Total 0.2 mg/dL (0.2-1.2); Calc. Creatinine Clearance 0 mL/min (70-130); Calcium 9.9 mg/dL (7.8-10.44); Carbon Dioxide 28 mmol/L (22-29); Chloride 102 mmol/L (98-107); Estimated GFR 84; Globulin 3.1 g/dL (2.4-3.5); Glucose 135 mg/dL (70-105); Potassium 4.1 mmol/L (3.5-5.1); Protein, Total 6.9 g/dL (6.0-8.3); Sodium 139 mmol/L (136-145)
== END 2022-12-09 23:55 | disposition home or self-care (01) ==
LOC: ERS 21:38
DX: S50.02XA Contusion of left elbow, initial encounter (principal); S80.212A Abrasion, left knee, initial encounter; I10 Essential (primary) hypertension; E78.00 Pure hypercholesterolemia, unspecified; E66.9 Obesity, unspecified; E11.9 Type 2 diabetes mellitus without complications; E03.9 Hypothyroidism, unspecified; Z79.899 Other long term (current) drug therapy; Z79.84 Long term (current) use of oral hypoglycemic drugs; W01.10XA Fall on same level from slipping, tripping and stumbling with subsequent striking against unspecified object, initial encounter
CPT/HCPCS: 36415; 70450; 80053; 85025; 93005

== ENCOUNTER 2023-05-22 11:23 | Emergency (ER) | payer MEDICARE, MEDICAID | END 2023-05-22 12:34 | disposition home or self-care (01) | LOC: ERS 11:23 | DX: S09.90XA Unspecified injury of head, initial encounter (principal); E78.00 Pure hypercholesterolemia, unspecified; I10 Essential (primary) hypertension; E11.9 Type 2 diabetes mellitus without complications; W18.30XA Fall on same level, unspecified, initial encounter; Z79.84 Long term (current) use of oral hypoglycemic drugs; Z79.899 Other long term (current) drug therapy | CPT/HCPCS: 70450 ==

== ENCOUNTER 2023-09-07 15:08 | Emergency (ER) | payer MEDICARE, MEDICAID ==
[2023-09-07 15:47] LABS: #Eosinphils 0.1 thou/uL (0.0-0.7); #Monocytes 0.5 thou/uL (0.11-0.59); #Neutrophils 2.6 thou/uL (1.40-6.50); %Basophils 0.4 % (0.0-1.0); %Eosinophils 1.6 % (0.0-10.0); %Lymphocytes 42.9 % (21.0-51.0); %Monocytes 8.3 % (0.0-10.0); %Neutrophils 45.2 % (42.0-75.0); Hemoglobin 13.5 g/dL (12.0-16.0); Mean Corpuscular HGB CONC 32.1 g/dL (32.0-36.0); Mean Corpuscular Hemoglobin 31.1 pg (27.0-31.0); Mean Corpuscular Volume 96.8 fl (78.0-98.0); Mean Platelet Volume 9.4 fL (7.4-10.4); Platelet Count 157 10x3/uL (130-400); RBC Distribution Width 12.7 % (11.5-14.5); Red Blood Cell (RBC) Count 4.34 mill/uL (4.20-5.40); White Blood Cell (WBC) Count 5.7 10x3/uL (4.8-10.8)
[2023-09-07 16:10] LABS: ALT (SGPT) 12 U/L (8-55); AST (SGOT) 14 U/L (5-34); Albumin 4.5 g/dL (3.4-4.8); Alkaline Phosphatase 61 U/L (40-110); Anion Gap 10 mmol/L (10-20); BUN (Urea Nitrogen) 22 mg/dL (9.8-20.1); Bilirubin, Total 0.2 mg/dL (0.2-1.2); Calc. Creatinine Clearance 0 mL/min (70-130); Calcium 10.6 mg/dL (7.8-10.44); Carbon Dioxide 33 mmol/L (23-31); Chloride 101 mmol/L (98-107); Estimated GFR 81; Glucose 110 mg/dL (80-115); Potassium 4.2 mmol/L (3.5-5.1); Protein, Total 7.5 g/dL (5.8-8.1); Sodium 140 mmol/L (136-145)
== END 2023-09-07 22:36 ==
LOC: ERS 15:08
DX: R56.9 Unspecified convulsions (principal); E78.00 Pure hypercholesterolemia, unspecified; E11.9 Type 2 diabetes mellitus without complications; Z79.84 Long term (current) use of oral hypoglycemic drugs; Z79.899 Other long term (current) drug therapy
CPT/HCPCS: 36415; 70450; 80053; 80177; 85025

== ENCOUNTER 2023-11-18 16:19 | Emergency (ER) | payer MEDICARE, MEDICAID, OTHER ==
[2023-11-18 20:08] LABS: #Monocytes 0.5 thou/uL (0.11-0.59); #Neutrophils 3.4 thou/uL (1.40-6.50); %Basophils 0.3 % (0.0-1.0); %Eosinophils 0.4 % (0.0-10.0); %Lymphocytes 39.4 % (21.0-51.0); %Monocytes 7.5 % (0.0-10.0); %Neutrophils 51.1 % (42.0-75.0); Hematocrit 40.2 % (36.0-47.0); Hemoglobin 13.4 g/dL (12.0-16.0); Mean Corpuscular HGB CONC 33.3 g/dL (32.0-36.0); Mean Corpuscular Hemoglobin 31.6 pg (27.0-31.0); Mean Corpuscular Volume 94.8 fl (78.0-98.0); Mean Platelet Volume 9.6 fL (7.4-10.4); Red Blood Cell (RBC) Count 4.24 mill/uL (4.20-5.40); White Blood Cell (WBC) Count 6.7 10x3/uL (4.8-10.8)
[2023-11-18 20:19] LABS: Platelet Count 128 10x3/uL (130-400)
[2023-11-18 20:32] LABS: ALT (SGPT) 13 U/L (8-55); AST (SGOT) 15 U/L (5-34); Albumin 3.9 g/dL (3.4-4.8); Alkaline Phosphatase 51 U/L (40-110); Anion Gap 12 mmol/L (10-20); BUN (Urea Nitrogen) 8 mg/dL (9.8-20.1); Bilirubin, Total 0.4 mg/dL (0.2-1.2); Calc. Creatinine Clearance 0 mL/min (70-130); Calcium 9.5 mg/dL (7.8-10.44); Carbon Dioxide 27 mmol/L (23-31); Chloride 104 mmol/L (98-107); Estimated GFR 94; Glucose 87 mg/dL (80-115); Potassium 4.3 mmol/L (3.5-5.1); Protein, Total 6.9 g/dL (5.8-8.1); Sodium 139 mmol/L (136-145)
== END 2023-11-18 23:33 ==
LOC: ERS 16:19
DX: S09.90XA Unspecified injury of head, initial encounter (principal); E78.00 Pure hypercholesterolemia, unspecified; I10 Essential (primary) hypertension; E11.9 Type 2 diabetes mellitus without complications; E03.9 Hypothyroidism, unspecified; Z79.84 Long term (current) use of oral hypoglycemic drugs; Z79.899 Other long term (current) drug therapy; W18.30XA Fall on same level, unspecified, initial encounter
CPT/HCPCS: 36415; 70450; 72125; 80053; 85025; 93005

== ENCOUNTER 2023-11-21 09:16 | Emergency (ER) | payer MEDICARE, MEDICAID, OTHER ==
[2023-11-21] MEDS ORDERED: Ondansetron PF 4 MG/2 ML Vial ONE (10:04)
[2023-11-21] MEDS ORDERED: Morphine 2 MG/ML VIAL ONE (10:04)
[2023-11-21 10:18] LABS: #Monocytes 0.6 thou/uL (0.11-0.59); #Neutrophils 4.7 thou/uL (1.40-6.50); %Basophils 0.3 % (0.0-1.0); %Eosinophils 0.2 % (0.0-10.0); %Lymphocytes 17.7 % (21.0-51.0); %Monocytes 8.4 % (0.0-10.0); %Neutrophils 72.2 % (42.0-75.0); Hematocrit 44.2 % (36.0-47.0); Hemoglobin 14.6 g/dL (12.0-16.0); Mean Corpuscular Volume 93.8 fl (78.0-98.0); Mean Platelet Volume 9.4 fL (7.4-10.4); Platelet Count 143 10x3/uL (130-400); RBC Distribution Width 12.9 % (11.5-14.5); Red Blood Cell (RBC) Count 4.71 mill/uL (4.20-5.40); White Blood Cell (WBC) Count 6.6 10x3/uL (4.8-10.8)
[2023-11-21 10:47] LABS: ALT (SGPT) 21 U/L (8-55); AST (SGOT) 32 U/L (5-34); Albumin 4.3 g/dL (3.4-4.8); Alkaline Phosphatase 57 U/L (40-110); Anion Gap 15 mmol/L (10-20); BUN (Urea Nitrogen) 14 mg/dL (9.8-20.1); Bilirubin, Total 0.5 mg/dL (0.2-1.2); Calc. Creatinine Clearance 0 mL/min (70-130); Calcium 10.5 mg/dL (7.8-10.44); Carbon Dioxide 28 mmol/L (23-31); Chloride 101 mmol/L (98-107); Estimated GFR 83; Globulin 3.2 g/dL (2.4-3.5); Glucose 127 mg/dL (80-115); Protein, Total 7.5 g/dL (5.8-8.1); Sodium 140 mmol/L (136-145)
== END 2023-11-21 12:30 | disposition home or self-care (01) ==
LOC: ERS 09:16
DX: S09.90XA Unspecified injury of head, initial encounter (principal); M54.2 Cervicalgia; I10 Essential (primary) hypertension; E11.9 Type 2 diabetes mellitus without complications; E78.00 Pure hypercholesterolemia, unspecified; E03.9 Hypothyroidism, unspecified; G40.909 Epilepsy, unspecified, not intractable, without status epilepticus; E66.9 Obesity, unspecified; W18.09XA Striking against other object with subsequent fall, initial encounter; Z79.84 Long term (current) use of oral hypoglycemic drugs; Z79.899 Other long term (current) drug therapy
CPT/HCPCS: 70450; 71045; 72125; 80053; 85025; 93005; 96361; 96374; 96375; J2272; J2405

== ENCOUNTER 2023-12-07 02:28 | Emergency (ER) | payer MEDICARE, MEDICAID ==
[2023-12-07] MEDS ORDERED: LORazepam 2 MG/ML SYR.(CARPUJECT) ONE ×4 (02:35→08:05)
[2023-12-07] MEDS ORDERED: levETIRAcetam 500 MG (5 mL) VIAL ONE (02:43)
[2023-12-07] MEDS ORDERED: PROPOFOL 20 ML ONE (02:45)
[2023-12-07] MEDS ORDERED: Rocuronium Bromide 10 MG/ML (10ML VIAL) ONE (02:46)
[2023-12-07 02:54] LABS: #Monocytes 0.4 thou/uL (0.11-0.59); #Neutrophils 10.4 thou/uL (1.40-6.50); %Basophils 0.3 % (0.0-1.0); %Lymphocytes 4.7 % (21.0-51.0); %Monocytes 3.3 % (0.0-10.0); %Neutrophils 89.9 % (42.0-75.0); Hematocrit 41.3 % (36.0-47.0); Hemoglobin 13.7 g/dL (12.0-16.0); Mean Corpuscular HGB CONC 33.2 g/dL (32.0-36.0); Mean Corpuscular Hemoglobin 31.4 pg (27.0-31.0); Mean Corpuscular Volume 94.7 fl (78.0-98.0); Mean Platelet Volume 9.3 fL (7.4-10.4); Platelet Count 171 10x3/uL (130-400); RBC Distribution Width 12.6 % (11.5-14.5); Red Blood Cell (RBC) Count 4.36 mill/uL (4.20-5.40); White Blood Cell (WBC) Count 11.6 10x3/uL (4.8-10.8)
[2023-12-07] MEDS ORDERED: Propofol 1,000 MG/100 ML VIAL IV ONE ×2 (03:04→08:11)
[2023-12-07 03:19] LABS: Acetaminophen Less than 10 mcg/mL (10.0-30.0); Alcohol Less than 10.0 mg/dL (Less than 10); INR-International Normal Ratio 1.1; PTT 25.9 sec (22.9-36.1); Prothrombin Time 13.7 sec (12.0-14.7); Salicylate Less than 8.0 mg/dL (15.0-30.0)
[2023-12-07 03:21] LABS: ALT (SGPT) 22 U/L (8-55); AST (SGOT) 22 U/L (5-34); Albumin 3.9 g/dL (3.4-4.8); Alkaline Phosphatase 63 U/L (40-110); Anion Gap 14 mmol/L (10-20); BUN (Urea Nitrogen) 12 mg/dL (9.8-20.1); Bilirubin, Total 0.3 mg/dL (0.2-1.2); CK (CPK) 50 U/L (29-168); Calc. Creatinine Clearance 0 mL/min (70-130); Calcium 9.6 mg/dL (7.8-10.44); Carbon Dioxide 30 mmol/L (23-31); Chloride 98 mmol/L (98-107); Estimated GFR 99; Globulin 2.8 g/dL (2.4-3.5); Glucose 171 mg/dL (80-115); Potassium 4.1 mmol/L (3.5-5.1); Protein, Total 6.7 g/dL (5.8-8.1); Sodium 138 mmol/L (136-145)
[2023-12-07 03:25] LABS: Troponin I Less than 0.010 ng/mL (< 0.028)
[2023-12-07 04:50] LABS: Amphetamine Not Detected (NotDetected); Barbiturates Screen Not Detected (NotDetected); Benzodiazepine Screen Not Detected (NotDetected); Cocaine Metabolite Screen Not Detected (NotDetected); Methadone Not Detected (NotDetected); Methamphetamine Not Detected (NotDetected); Opiate Screen Not Detected (NotDetected); Oxycodone Screen Not Detected (NotDetected); Phencyclidine (PCP) Not Detected (NotDetected); THC/Cannabinoid Screen Not Detected (NotDetected); Tricyclic Screen Not Detected (NotDetected)
[2023-12-07 06:25] LABS: SARS-CoV-2 NAA Rapid Test Not Detected (NotDetected)
[2023-12-07] MEDS ORDERED: Iopamidol 370 76% 100 ML VIAL ONE (09:50)
== END 2023-12-07 08:30 | disposition short-term general hospital (02) ==
LOC: ERS 02:28
DX: G40.901 Epilepsy, unspecified, not intractable, with status epilepticus (principal); I10 Essential (primary) hypertension; E11.9 Type 2 diabetes mellitus without complications; E03.9 Hypothyroidism, unspecified; Z79.84 Long term (current) use of oral hypoglycemic drugs; Z79.899 Other long term (current) drug therapy
CPT/HCPCS: 0240U; 31500 ×2; 51702; 70450; 70496; 70498; 71045; 80053; 80306; 80307; 82550; 84484; 85025; 85610; 85730; 93005; 94002; 96365; 99291; 99292; J1953; J2060; J2704; Q9967